=== PATIENT | male | born 1950 | race Caucasian/White ===

== ENCOUNTER → 2017-10-16 08:59 | Outpatient (POV) | payer MEDICARE, OTHER, SELFPAY ==
[2017-10-16 09:19] VITALS: BP 127/69; PULSE 93; RESP 18; O2SAT 99; BMI 24.3
--- NOTE | 2017-10-16 09:59 | HMH.PAINSOAP ---
[facility] Pain Management SOAP Note Subjective:: This patient is a 67-year-old white male who following up today for medication refills. This patient recently had back surgery back in May of this last year. Patient been released by surgeon from wearing his back brace. He reports that he is doing pretty well as far as pain control at this time. He does state his pain to 7 out of 10 today. He denies any side effects directly related to the pain medication. Patient is currently on morphine ER 15 mg 1 p.o. daily along with oxycodone 10 mg 1 p.o. 3 times daily. Patient states that this medication helps him do to 60%. Patient's UDS has been appropriate in the past and we will send him for one for today. Patient is also taking diclofenac 75 mg 1 p.o. twice daily. ROS General: no recent weight change, no fever, no sleep disturbances Respiratory: no cough, no shortness of air, no recurring pulmonary infections Cardiovascular/Peripheral Vascular: No chest pain, No palpitations, no edema, no shortness of breath. Gastrointestinal: Chronic constipation Genitourinary: Urinary hesitancy Musculoskeletal: Lumbar back pain Psychiatric: normal mood/ affect Neurological: States he has weakness in bilateral lower extremities at times, [denies balance issues] Objective:: Physical Exam General: Alert and oriented x3, no acute distress, pleasant and cooperative, [on room air] Lungs: Resps E/U, Symmetrical chest expansion Musculoskeletal: Flexion and extension of lumbar spine somewhat guarded secondary to pain, deep tendon reflexes normal, strength in upper and lower extremities [5/5], slightly antalgic gait noted Neurological: speech clear, information systems consultant equal, no gross sensory deficits Assessment:: Lumbar postlaminectomy syndrome, degenerative disc disease lumbar spine, lumbar radiculopathy Plan:: We will refill the patient's medication today least 15 mg 1 p.o. daily and oxycodone 10 mg [address] HARDEN has reviewed the chart and feels this is appropriate. Patient's JOSE #[id number] reviewed and appropriate. Patient's last UDS was appropriate. he will go for a UDS today. She is still under the care of his surgeon. I have asked that when he is released that he request the surgeon send us notes his most recent surgery and recovery. Patient has been prescribed a controlled substance after being counseled on the medication, medication safety, and possible side effects. JOSE report has been obtained and reviewed prior to prescription and found to be appropriate. Opioid contract was reviewed and signed by the patient, and that they have agreed to all of the terms set forth by our compliance program. Note was dictated using voice recognition software and may contain errors or omissions
--- NOTE | 2017-10-16 10:02 | P.CONS_ITS ---
[facility] Pain Management SOAP Note Subjective:: This patient is a 67-year-old white male who following up today for medication refills. This patient recently had back surgery back in May of this last year. Patient been released by surgeon from wearing his back brace. He reports that he is doing pretty well as far as pain control at this time. He does state his pain to 7 out of 10 today. He denies any side effects directly related to the pain medication. Patient is currently on morphine ER 15 mg 1 p.o. daily along with oxycodone 10 mg 1 p.o. 3 times daily. Patient states that this medication helps him do to 60%. Patient's UDS has been appropriate in the past and we will send him for one for today. Patient is also taking diclofenac 75 mg 1 p.o. twice daily. ROS General: no recent weight change, no fever, no sleep disturbances Respiratory: no cough, no shortness of air, no recurring pulmonary infections Cardiovascular/Peripheral Vascular: No chest pain, No palpitations, no edema, no shortness of breath. Gastrointestinal: Chronic constipation Genitourinary: Urinary hesitancy Musculoskeletal: Lumbar back pain Psychiatric: normal mood/ affect Neurological: States he has weakness in bilateral lower extremities at times, [ denies balance issues] Objective:: Physical Exam General: Alert and oriented x3, no acute distress, pleasant and cooperative, [ on room air] Lungs: Resps E/U, Symmetrical chest expansion Musculoskeletal: Flexion and extension of lumbar spine somewhat guarded secondary to pain, deep tendon reflexes normal, strength in upper and lower extremities [5/5], slightly antalgic gait noted Neurological: speech clear, retail marketing coordinator equal, no gross sensory deficits Assessment:: Lumbar postlaminectomy syndrome, degenerative disc disease lumbar spine, lumbar radiculopathy Plan:: We will refill the patient's medication today least 15 mg 1 p.o. daily and oxycodone 10 mg [address] HARDEN has reviewed the chart and feels this is appropriate. Patient's JOSE #[id number] reviewed and appropriate. Patient's last UDS was appropriate. he will go for a UDS today. She is still under the care of his surgeon. I have asked that when he is released that he request the surgeon send us notes his most recent surgery and recovery. Patient has been prescribed a controlled substance after being counseled on the medication, medication safety, and possible side effects. JOSE report has been obtained and reviewed prior to prescription and found to be appropriate. Opioid contract was reviewed and signed by the patient, and that they have agreed to all of the terms set forth by our compliance program. Note was dictated using voice recognition software and may contain errors or omissions
[2017-10-16 13:26] LABS: Amphetamine/Metha Screen,Urine Negative ng/mL (<1000); Barbiturates Screen,Urine Negative ng/mL (<200); Benzodiazepines Screen,Urine Negative ng/mL (200); Cannabinoid Screen,Urine Negative ng/mL (<50); Cocaine Screen,Urine Negative ng/g (<300); Methadone Screen,Urine Negative ng/mL (<300); Opiate Screen,Urine Positive ng/mL (<300); Phencyclidine Screen,Urine Negative ng/mL (<25)
[2017-10-22 16:13] LABS: Codeine Negative (Cutoff=100); Hydrocodone Negative (Cutoff=100); Hydromorphone Negative (Cutoff=100); Morphine Positive (.); Oxycodone (GC/MS) 1630 ng/mL (Cutoff=100)
[2017-10-22 17:15] LABS: Opiates Positive (.); Oxymorphone (GC/MS) 768 ng/mL (Cutoff=100)
== END ==
PROVIDERS: Visit Provider Clinical Nurse Specialist Family Health
DX: M96.1 Postlaminectomy syndrome, not elsewhere classified (principal); Z79.899 Other long term (current) drug therapy
CPT/HCPCS: 99212; 80305; 80361; 80365; G0480

== ENCOUNTER → 2017-12-25 10:05 | Outpatient (POV) | payer MEDICARE, OTHER, SELFPAY ==
--- NOTE | 2017-12-25 11:03 | HMH.PAINSOAP ---
[facility] Pain Management SOAP Note Subjective:: This patient is a pleasant 67-year-old white male who we are treating for low back pain with lumbar radiculopathy symptoms and postlaminectomy syndrome lumbar spine. He had back surgery in May of last year. He is doing well with his current pain medication regimen. Pain score is an 8 out of 10. He is currently on a regimen of morphine extended release 15 mg once a day along with oxycodone 10 mg 3 times a day. His Sharif and urine drug screen are all appropriate. Kaspar #[id number]. He has no side effects with these medications. He is also on diclofenac 75 mg twice a day. Overall he is doing well with no changes. General: No recent weight change, no fever no sleep disturbances Respiratory: No changes Cardiovascular/peripheral vascular: No chest pain no shortness of breath Gastrointestinal: Chronic constipation Urinary: Urinary hesitancy Musculoskeletal: Low back pain and leg pain Psychiatric: Normal/depressed mood/affect Neurological: Occasional weakness in bilateral lower extremities. No balance issues. Objective:: Alert and oriented ?3 in no acute distress. Patient does have an antalgic gait. Motor strength of the lower extremities is 5/5. There is no gross sensory deficit. Assessment:: Degenerative disc disease of lumbar spine with lumbar radiculopathy symptoms and postlaminectomy syndrome of lumbar spine Plan:: We will refill his morphine sulfate 15 mg once a day with oxycodone 10 mg 3 times a day. I will give him 2 months worth of prescriptions. 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 If he has any problems or questions he is to call us in the pain clinic.
--- NOTE | 2017-12-25 11:06 | P.CONS_ITS ---
[facility] Pain Management SOAP Note Subjective:: This patient is a pleasant 67-year-old white male who we are treating for low back pain with lumbar radiculopathy symptoms and postlaminectomy syndrome lumbar spine. He had back surgery in May of last year. He is doing well with his current pain medication regimen. Pain score is an 8 out of 10. He is currently on a regimen of morphine extended release 15 mg once a day along with oxycodone 10 mg 3 times a day. His Sharif and urine drug screen are all appropriate. Kaspar #[id number]. He has no side effects with these medications. He is also on diclofenac 75 mg twice a day. Overall he is doing well with no changes. General: No recent weight change, no fever no sleep disturbances Respiratory: No changes Cardiovascular/peripheral vascular: No chest pain no shortness of breath Gastrointestinal: Chronic constipation Urinary: Urinary hesitancy Musculoskeletal: Low back pain and leg pain Psychiatric: Normal/depressed mood/affect Neurological: Occasional weakness in bilateral lower extremities. No balance issues. Objective:: Alert and oriented ?3 in no acute distress. Patient does have an antalgic gait. Motor strength of the lower extremities is 5/5. There is no gross sensory deficit. Assessment:: Degenerative disc disease of lumbar spine with lumbar radiculopathy symptoms and postlaminectomy syndrome of lumbar spine Plan:: We will refill his morphine sulfate 15 mg once a day with oxycodone 10 mg 3 times a day. I will give him 2 months worth of prescriptions. 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 If he has any problems or questions he is to call us in the pain clinic.
[2017-12-25 12:06] VITALS: BP 100/53; PULSE 86; RESP 20; TEMP 36.8; O2SAT 98; BMI 25.2
[2017-12-25 15:11] LABS: Amphetamine/Metha Screen,Urine Negative ng/mL (<1000); Barbiturates Screen,Urine Negative ng/mL (<200); Benzodiazepines Screen,Urine Negative ng/mL (200); Cannabinoid Screen,Urine Negative ng/mL (<50); Cocaine Screen,Urine Negative ng/g (<300); Methadone Screen,Urine Negative ng/mL (<300); Opiate Screen,Urine Positive ng/mL (<300); Phencyclidine Screen,Urine Negative ng/mL (<25)
[2018-01-03 02:08] LABS: Codeine Negative (Cutoff=100); Hydrocodone Negative (Cutoff=100); Hydromorphone Negative (Cutoff=100); Morphine Positive (.); Oxycodone (GC/MS) 106 ng/mL (Cutoff=100)
[2018-01-04 06:18] LABS: Opiates Positive (.); Oxymorphone (GC/MS) 207 ng/mL (Cutoff=100)
== END ==
PROVIDERS: Visit Provider Anesthesiology
DX: M54.16 Radiculopathy, lumbar region (principal); Z79.899 Other long term (current) drug therapy
CPT/HCPCS: 80305; 80361; 80365; 99212; G0480

== ENCOUNTER → 2018-03-26 11:14 | Outpatient (POV) | payer MEDICARE, OTHER, SELFPAY ==
[2018-03-26 11:27] VITALS: BP 122/64; PULSE 83; RESP 18; O2SAT 96; BMI 24.6
--- NOTE | 2018-03-26 12:23 | HMH.PAINSOAP ---
[facility] Pain Management SOAP Note Subjective:: Patient is a 67-year-old white male who presents today for medication refills. We are treating this patient for pain secondary to postlaminectomy syndrome of the lumbar spine with lumbar radiculopathy. Patient recently had back surgery back in May. He is doing well. Patient rates his pain a 9 out of 10 however this he states this is typical. Patient states that the medication makes him much more functional and he is actually able to do yard work. Patient on morphine ER 15 mg 1 p.o. twice daily and oxycodone 10 mg 1 p.o. 3 times daily. Patient's JOSE #[id number] reviewed and appropriate. Patient states he has been having muscle spasms lately. Patient is currently on tizanidine. Patient has not tried Flexeril before we will switch him over to Flexeril. Patient denies side effects with this medication. Patient also taking diclofenac 75 mg 1 p.o. twice daily. Patient states that most of his pain is in his low back and left side. ROS General: no recent weight change, no fever, no sleep disturbances Respiratory: no cough, no shortness of air, no recurring pulmonary infections Cardiovascular/Peripheral Vascular: No chest pain, No palpitations, no edema, no shortness of breath. Gastrointestinal: no incontinence, normal bowel movements reported Genitourinary: no incontinence Musculoskeletal: Back pain, leg pain Psychiatric: normal mood/ affect Neurological: [denies weakness in extremities], [denies balance issues] Objective:: Physical Exam General: Alert and oriented x3, no acute distress, pleasant and cooperative, [on room air] Lungs: Resps E/U, Symmetrical chest expansion, Eyes: PERRL Musculoskeletal: Flexion and extension of lumbar spine somewhat guarded secondary to pain, deep tendon reflexes normal, strength in upper and lower extremities [5/5], [abnormal gait noted] Neurological: speech clear, test lead application testing equal, no gross sensory deficits Assessment:: Degenerative disc disease of the lumbar spine with lumbar radiculopathy and postlaminectomy syndrome of the lumbar spine Plan:: We will refill the patient's medications morphine extended release 15 mg 1 p.o. twice daily and oxycodone 10 mg 1 p.o. 3 times daily. We will give him [address] prescriptions[address] Dr. Santana has reviewed this chart and agrees with this plan of care. We will also call him in Flexeril 10 mg 1 tab p.o. 3 times daily giving him a 90 day supply at his [facility]. I will follow-up with the patient in 3 months. Patient's been instructed to call the office if he has any issues prior to his next appointment. Patient has been prescribed a controlled substance after being counseled on the medication, medication safety, and possible side effects. JOSE report has been obtained and reviewed prior to prescription and found to be appropriate. Opioid contract was reviewed and signed by the patient, and that they have agreed to all of the terms set forth by our compliance program. This note was dictated using voice recognition software and may contain errors or omissions
--- NOTE | 2018-03-26 12:26 | P.CONS_ITS ---
[facility] Pain Management SOAP Note Subjective:: Patient is a 67-year-old white male who presents today for medication refills. We are treating this patient for pain secondary to postlaminectomy syndrome of the lumbar spine with lumbar radiculopathy. Patient recently had back surgery back in May. He is doing well. Patient rates his pain a 9 out of 10 however this he states this is typical. Patient states that the medication makes him much more functional and he is actually able to do yard work. Patient on morphine ER 15 mg 1 p.o. twice daily and oxycodone 10 mg 1 p.o. 3 times daily. Patient's JOSE #[id number] reviewed and appropriate. Patient states he has been having muscle spasms lately. Patient is currently on tizanidine. Patient has not tried Flexeril before we will switch him over to Flexeril. Patient denies side effects with this medication. Patient also taking diclofenac 75 mg 1 p.o. twice daily. Patient states that most of his pain is in his low back and left side. ROS General: no recent weight change, no fever, no sleep disturbances Respiratory: no cough, no shortness of air, no recurring pulmonary infections Cardiovascular/Peripheral Vascular: No chest pain, No palpitations, no edema, no shortness of breath. Gastrointestinal: no incontinence, normal bowel movements reported Genitourinary: no incontinence Musculoskeletal: Back pain, leg pain Psychiatric: normal mood/ affect Neurological: [denies weakness in extremities], [denies balance issues] Objective:: Physical Exam General: Alert and oriented x3, no acute distress, pleasant and cooperative, [ on room air] Lungs: Resps E/U, Symmetrical chest expansion, Eyes: PERRL Musculoskeletal: Flexion and extension of lumbar spine somewhat guarded secondary to pain, deep tendon reflexes normal, strength in upper and lower extremities [5/5], [abnormal gait noted] Neurological: speech clear, wire charger equal, no gross sensory deficits Assessment:: Degenerative disc disease of the lumbar spine with lumbar radiculopathy and postlaminectomy syndrome of the lumbar spine Plan:: We will refill the patient's medications morphine extended release 15 mg 1 p.o. twice daily and oxycodone 10 mg 1 p.o. 3 times daily. We will give him [address] prescriptions[address] Dr. Santana has reviewed this chart and agrees with this plan of care. We will also call him in Flexeril 10 mg 1 tab p.o. 3 times daily giving him a 90 day supply at his [facility]. I will follow-up with the patient in 3 months. Patient's been instructed to call the office if he has any issues prior to his next appointment. Patient has been prescribed a controlled substance after being counseled on the medication, medication safety, and possible side effects. JOSE report has been obtained and reviewed prior to prescription and found to be appropriate. Opioid contract was reviewed and signed by the patient, and that they have agreed to all of the terms set forth by our compliance program. This note was dictated using voice recognition software and may contain errors or omissions
== END ==
PROVIDERS: Visit Provider Clinical Nurse Specialist Family Health
DX: M51.16 Intervertebral disc disorders with radiculopathy, lumbar region (principal); M96.1 Postlaminectomy syndrome, not elsewhere classified
CPT/HCPCS: 99212

== ENCOUNTER → 2018-05-21 09:27 | Outpatient (POV) | payer MEDICARE, OTHER, SELFPAY ==
[2018-05-21 10:17] VITALS: BP 141/71; PULSE 83; RESP 18; O2SAT 98; BMI 19.9
[2018-05-21 10:20] LABS: Amphetamine/Metha Screen,Urine Negative ng/mL (<1000); Barbiturates Screen,Urine Negative ng/mL (<200); Benzodiazepines Screen,Urine Negative ng/mL (<200); Cannabinoid Screen,Urine Negative ng/mL (<50); Cocaine Screen,Urine Negative ng/mL (<300); Methadone Screen,Urine Negative ng/mL (<300); Opiate Screen,Urine Positive ng/mL (<300); Phencyclidine Screen,Urine Negative ng/mL (<25)
--- NOTE | 2018-05-21 12:07 | HMH.PAINSOAP ---
[facility] Pain Management SOAP Note Subjective:: Patient is a pleasant 67-year-old white male who presents today for medication refills. We are treating the patient for pain secondary to postlaminectomy syndrome of the lumbar spine with lumbar radiculopathy. Patient rates pain a 10 out of 10 however he has had a recent injury when he was moving trees. Patient otherwise doing well. Patient states the medication makes him much more functional. Patient is currently on morphine extended release 50 mg 1 p.o. twice daily and oxycodone 10 mg 1 p.o. 3 times daily. Patient's JOSE #[id number] reviewed and appropriate he denies side effects to this. Patient is also on Flexeril 10 mg 1 p.o. 3 times daily and diclofenac 75 mg 1 p.o. twice daily. It is in his low back and left side. ROS General: no recent weight change, no fever, no sleep disturbances Respiratory: no cough, no shortness of air, no recurring pulmonary infections Cardiovascular/Peripheral Vascular: No chest pain, No palpitations, no edema, no shortness of breath. Gastrointestinal: no incontinence, normal bowel movements reported Genitourinary: no incontinence Musculoskeletal: Back pain, leg pain, shoulder pain Psychiatric: normal mood/ affect Neurological: [denies weakness in extremities], [denies balance issues] Objective:: Physical Exam General: Alert and oriented x3, no acute distress, pleasant and cooperative, [on room air] Lungs: Resps E/U, Symmetrical chest expansion, Eyes: PERRL Musculoskeletal: Flexion and extension of lumbar spine somewhat guarded secondary to pain, deep tendon reflexes normal, strength in upper and lower extremities [5/5], [abnormal gait noted] Neurological: speech clear, fish farm manager equal, no gross sensory deficits Assessment:: Degenerative disc disease lumbar spine with lumbar radiculopathy, postlaminectomy syndrome lumbar spine Plan:: We will refill the patient's morphine extended release 50 mg 1 p.o. twice daily and give him 2 months worth. We will also refill his oxycodone 10 mg 1 p.o. 3 times daily and give him 2 months worth. Patient's Jose and urine drug screen reviewed. Dr. Santana is reviewed this chart and agrees with this plan of care. 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 Patient has been prescribed a controlled substance after being counseled on the medication, medication safety, and possible side effects. JOSE report has been obtained and reviewed prior to prescription and found to be appropriate. Opioid contract was reviewed and signed by the patient, and that they have agreed to all of the terms set forth by our compliance program. This note was dictated using voice recognition software and may contain errors or omissions
--- NOTE | 2018-05-21 12:20 | P.CONS_ITS ---
[facility] Pain Management SOAP Note Subjective:: Patient is a pleasant 67-year-old white male who presents today for medication refills. We are treating the patient for pain secondary to postlaminectomy syndrome of the lumbar spine with lumbar radiculopathy. Patient rates pain a 10 out of 10 however he has had a recent injury when he was moving trees. Patient otherwise doing well. Patient states the medication makes him much more functional. Patient is currently on morphine extended release 50 mg 1 p.o. twice daily and oxycodone 10 mg 1 p.o. 3 times daily. Patient's JOSE #[id number] reviewed and appropriate he denies side effects to this. Patient is also on Flexeril 10 mg 1 p.o. 3 times daily and diclofenac 75 mg 1 p.o. twice daily. It is in his low back and left side. ROS General: no recent weight change, no fever, no sleep disturbances Respiratory: no cough, no shortness of air, no recurring pulmonary infections Cardiovascular/Peripheral Vascular: No chest pain, No palpitations, no edema, no shortness of breath. Gastrointestinal: no incontinence, normal bowel movements reported Genitourinary: no incontinence Musculoskeletal: Back pain, leg pain, shoulder pain Psychiatric: normal mood/ affect Neurological: [denies weakness in extremities], [denies balance issues] Objective:: Physical Exam General: Alert and oriented x3, no acute distress, pleasant and cooperative, [on room air] Lungs: Resps E/U, Symmetrical chest expansion, Eyes: PERRL Musculoskeletal: Flexion and extension of lumbar spine somewhat guarded secondary to pain, deep tendon reflexes normal, strength in upper and lower extremities [5/5], [abnormal gait noted] Neurological: speech clear, material movers equal, no gross sensory deficits Assessment:: Degenerative disc disease lumbar spine with lumbar radiculopathy, postlaminectomy syndrome lumbar spine Plan:: We will refill the patient's morphine extended release 50 mg 1 p.o. twice daily and give him 2 months worth. We will also refill his oxycodone 10 mg 1 p.o. 3 times daily and give him 2 months worth. Patient's Jose and urine drug screen reviewed. Dr. Santana is reviewed this chart and agrees with this plan of care. 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 Patient has been prescribed a controlled substance after being counseled on the medication, medication safety, and possible side effects. JOSE report has been obtained and reviewed prior to prescription and found to be appropriate. Opioid contract was reviewed and signed by the patient, and that they have agreed to all of the terms set forth by our compliance program. This note was dictated using voice recognition software and may contain errors or omissions
[2018-05-27 20:08] LABS: Codeine Negative (Cutoff=100); Hydrocodone Negative (Cutoff=100); Hydromorphone Negative (Cutoff=100); Morphine Positive (.); Oxycodone (GC/MS) 349 ng/mL (Cutoff=100)
[2018-05-28 03:32] LABS: Opiates Positive (.); Oxymorphone (GC/MS) 331 ng/mL (Cutoff=100)
== END ==
PROVIDERS: Visit Provider Clinical Nurse Specialist Family Health
DX: M96.1 Postlaminectomy syndrome, not elsewhere classified (principal); M51.16 Intervertebral disc disorders with radiculopathy, lumbar region; Z79.899 Other long term (current) drug therapy
CPT/HCPCS: 80305; 80361; 80365; 99213; G0480

== ENCOUNTER → 2018-07-23 10:07 | Outpatient (POV) | payer MEDICARE, OTHER, SELFPAY ==
[2018-07-23 10:22] VITALS: BP 142/84; PULSE 93; RESP 18; O2SAT 98; BMI 23.6
--- NOTE | 2018-07-23 10:30 | HMH.PAINSOAP ---
[facility] Pain Management SOAP Note Subjective:: Patient is a pleasant 68-year-old white male who presents today for medication refills. We are treating him for pain secondary to postlaminectomy syndrome of the lumbar spine. Today he rates his pain a 10 out of 10. Patient has been falling recently. He has a neurology appointment set up and and reduction study set up for this month. Patient is currently on morphine extended release 15 mg 1 p.o. twice daily and oxycodone 10 mg 1 p.o. 3 times daily. Patient's JOSE #[id number] reviewed and appropriate. Patient's x-rays have been appropriate. Patient is also on Flexeril 10 mg 1 p.o. 3 times daily and diclofenac 75 mg 1 p.o. twice daily. Patient states he has been having a flare in his pain. ROS General: no recent weight change, no fever, no sleep disturbances Respiratory: no cough, no shortness of air, no recurring pulmonary infections Cardiovascular/Peripheral Vascular: No chest pain, No palpitations, no edema, no shortness of breath. Gastrointestinal: no incontinence, normal bowel movements reported Genitourinary: no incontinence Musculoskeletal: Back pain, leg pain, shoulder pain Psychiatric: normal mood/ affect Neurological: [denies weakness in extremities], [denies balance issues] Objective:: Physical Exam General: Alert and oriented x3, no acute distress, pleasant and cooperative, [on room air] Lungs: Resps E/U, Symmetrical chest expansion, Eyes: PERRL Musculoskeletal: Flexion and extension of lumbar spine somewhat guarded secondary to pain, deep tendon reflexes normal, strength in upper and lower extremities [5/5], [abnormal gait noted] Neurological: speech clear, track worker equal, no gross sensory deficits Assessment:: Postlaminectomy syndrome of the lumbar spine, degenerative disc disease lumbar spine Plan:: Patient is to keep his neurology appointment I will see him back in 2 months. We will give him 2 months of medication morphine extended release 15 mg 1 p.o. twice daily and give him oxycodone 10 mg 1 p.o. 3 times daily. I will follow-up with him in [address] Santana has reviewed this chart and agrees with this plan of care. We will also call in some prednisone 20 mg 1 p.o. twice daily for 5 days to see if this helps with his recent flare. Patient has been prescribed a controlled substance after being counseled on the medication, medication safety, and possible side effects. JOSE report has been obtained and reviewed prior to prescription and found to be appropriate. Opioid contract was reviewed and signed by the patient, and that they have agreed to all of the terms set forth by our compliance program. This note was dictated using voice recognition software and may contain errors or omissions
--- NOTE | 2018-07-23 10:33 | P.CONS_ITS ---
[facility] Pain Management SOAP Note Subjective:: Patient is a pleasant 68-year-old white male who presents today for medication refills. We are treating him for pain secondary to postlaminectomy syndrome of the lumbar spine. Today he rates his pain a 10 out of 10. Patient has been falling recently. He has a neurology appointment set up and and reduction study set up for this month. Patient is currently on morphine extended release 15 mg 1 p.o. twice daily and oxycodone 10 mg 1 p.o. 3 times daily. Patient's JOSE #[id number] reviewed and appropriate. Patient's x-rays have been appropriate. Patient is also on Flexeril 10 mg 1 p.o. 3 times daily and diclofenac 75 mg 1 p.o. twice daily. Patient states he has been having a flare in his pain. ROS General: no recent weight change, no fever, no sleep disturbances Respiratory: no cough, no shortness of air, no recurring pulmonary infections Cardiovascular/Peripheral Vascular: No chest pain, No palpitations, no edema, no shortness of breath. Gastrointestinal: no incontinence, normal bowel movements reported Genitourinary: no incontinence Musculoskeletal: Back pain, leg pain, shoulder pain Psychiatric: normal mood/ affect Neurological: [denies weakness in extremities], [denies balance issues] Objective:: Physical Exam General: Alert and oriented x3, no acute distress, pleasant and cooperative, [on room air] Lungs: Resps E/U, Symmetrical chest expansion, Eyes: PERRL Musculoskeletal: Flexion and extension of lumbar spine somewhat guarded secondary to pain, deep tendon reflexes normal, strength in upper and lower extremities [5/5], [abnormal gait noted] Neurological: speech clear, 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 We will give him 2 months of medication morphine extended release 15 mg 1 p.o. twice daily and give him oxycodone 10 mg 1 p.o. 3 times daily. I will follow-up with him in [address] Santana has reviewed this chart and agrees with this plan of care. We will also call in some prednisone 20 mg 1 p.o. twice daily for 5 days to see if this helps with his recent flare. Patient has been prescribed a controlled substance after being counseled on the medication, medication safety, and possible side effects. JOSE report has been obtained and reviewed prior to prescription and found to be appropriate. Opioid contract was reviewed and signed by the patient, and that they have agreed to all of the terms set forth by our compliance program. This note was dictated using voice recognition software and may contain errors or omissions
== END ==
PROVIDERS: Visit Provider Clinical Nurse Specialist Family Health
DX: M96.1 Postlaminectomy syndrome, not elsewhere classified (principal); M51.36 Other intervertebral disc degeneration, lumbar region
CPT/HCPCS: 99213

== ENCOUNTER → 2018-09-24 10:41 | Outpatient (POV) | payer MEDICARE, OTHER, SELFPAY ==
[2018-09-24 10:59] VITALS: BP 148/89; PULSE 89; RESP 18; O2SAT 99; BMI 25.1
--- NOTE | 2018-09-24 11:10 | HMH.PAINSOAP ---
[facility] Pain Management SOAP Note Subjective:: Patient is a 68-year-old male who presents today to discuss refills and to discuss his current regimen. Since his last visit patient had a shoulder surgery which in turn got infected. Patient was septic and was put in the ICU. Patient had the shoulder hardware removed he currently has nothing in his shoulder at this time. There is no connection of his arm to his shoulder. Patient currently on antibiotic pump. Patient had a fall after he being septic and injured his back which he now states he may have to have a back surgery again. Patient is currently on morphine and oxycodone however he is not having any success with pain control he rates his pain a 10 out of 10. Patient and I had a long discussion in regards to what we change him to. Patient is also having extreme muscle cramps in his bilateral legs and his shoulder. ROS General: no recent weight change, no fever, no sleep disturbances Respiratory: no cough, no shortness of air, no recurring pulmonary infections Cardiovascular/Peripheral Vascular: No chest pain, No palpitations, no edema, no shortness of breath. Gastrointestinal: no incontinence, normal bowel movements reported Genitourinary: no incontinence Musculoskeletal: Back pain, leg pain, left shoulder pain Psychiatric: normal mood/ affect, Neurological: [denies weakness in extremities], [denies balance issues] Objective:: Physical Exam General: Alert and oriented x3, no acute distress, pleasant and cooperative, [on room air] Lungs: Resps E/U, Symmetrical chest expansion, Eyes: PERRL Musculoskeletal: Flexion and extension of lumbar spine somewhat guarded secondary to pain, deep tendon reflexes normal, strength in upper and lower extremities [5/5], [abnormal gait noted] Neurological: speech clear, skin former equal, no gross sensory deficits Assessment:: Degenerative disc disease lumbar spine with lumbar postlaminectomy syndrome, left shoulder pain Plan:: After discussion with Dr. Santana we will change him to Dilaudid 4 mg 1 p.o. up to 5 times a day and name 5 mg daily for muscle cramps. We will follow-up with him in 1 month and reassess his symptoms at that time. he has been instructed to call the office if he has any issues. Patient has been prescribed a controlled substance after being counseled on the medication, medication safety, and possible side effects. JOSE report has been obtained and reviewed prior to prescription and found to be appropriate. Opioid contract was reviewed and signed by the patient, and that they have agreed to all of the terms set forth by our compliance program. Dr. Santana has reviewed this note and agrees with this plan of care. This note was dictated using voice recognition software and may contain errors or omissions
[2018-09-24 12:20] LABS: Amphetamine/Metha Screen,Urine Negative ng/mL (<1000); Barbiturates Screen,Urine Negative ng/mL (<200); Benzodiazepines Screen,Urine Negative ng/mL (<200); Cannabinoid Screen,Urine Negative ng/mL (<50); Cocaine Screen,Urine Negative ng/mL (<300); Methadone Screen,Urine Negative ng/mL (<300); Opiate Screen,Urine Positive ng/mL (<300); Phencyclidine Screen,Urine Negative ng/mL (<25)
[2018-09-29 03:37] LABS: Codeine Negative (Cutoff=100); Hydrocodone Negative (Cutoff=100); Hydromorphone Negative (Cutoff=100); Morphine Positive (.); Oxycodone (GC/MS) 331 ng/mL (Cutoff=100)
[2018-09-29 12:57] LABS: Opiates Positive (.); Oxymorphone (GC/MS) 813 ng/mL (Cutoff=100)
== END ==
PROVIDERS: Visit Provider Clinical Nurse Specialist Family Health
DX: M51.36 Other intervertebral disc degeneration, lumbar region (principal); Z79.899 Other long term (current) drug therapy; M96.1 Postlaminectomy syndrome, not elsewhere classified; M25.512 Pain in left shoulder
CPT/HCPCS: 80305; 80361; 80365; 99213; G0480

== ENCOUNTER → 2018-10-15 12:59 | Outpatient (POV) | payer MEDICARE, OTHER, SELFPAY ==
[2018-10-15 13:26] VITALS: BP 145/80; PULSE 75; RESP 18; O2SAT 99; BMI 24.5
--- NOTE | 2018-10-15 13:51 | HMH.PAINSOAP ---
[facility] Pain Management SOAP Note Subjective:: Is a pleasant 68-year-old white male who present today to discuss medication changes. Patient states that he has not had much relief with his Dilaudid. He states that this helps somewhat however it does not take away the pain. Patient is having surgery on the for his back. Patient is currently on morphine extended release 15 mg 1 p.o. twice daily along with diazepam 5 mg daily for muscle spasms. Patient states that he does have less muscle spasm with diazepam. Patient is tried and failed multiple other medications and muscle relaxers. Patient had shoulder surgery which in turn got infected he then had the shoulder joint removed. Patient currently does not have use of his left arm ROS General: no recent weight change, no fever, no sleep disturbances Respiratory: no cough, no shortness of air, no recurring pulmonary infections Cardiovascular/Peripheral Vascular: No chest pain, No palpitations, no edema, no shortness of breath. Gastrointestinal: no incontinence, normal bowel movements reported Genitourinary: no incontinence Musculoskeletal: Back pain, leg pain, left shoulder pain Psychiatric: normal mood/ affect Neurological: [denies weakness in extremities], [denies balance issues] Objective:: Physical Exam General: Alert and oriented x3, no acute distress, pleasant and cooperative, [on room air] Lungs: Resps E/U, Symmetrical chest expansion, Eyes: PERRL Musculoskeletal: Flexion and extension of lumbar spine somewhat guarded secondary to pain, deep tendon reflexes normal, strength in upper and lower extremities [5/5], [abnormal gait noted] Neurological: speech clear, 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 twice daily and increase his Dilaudid to 8 mg 1 p.o. B 4 times daily. We will increase his diazepam 5 mg to twice a day this is all temporary until he has his surgery and is feeling better. Patient understands this. Patient's been instructed to call the office if he has any issues with his medications. Patient has been prescribed a controlled substance after being counseled on the medication, medication safety, and possible side effects. JOSE report has been obtained and reviewed prior to prescription and found to be appropriate. Opioid contract was reviewed and signed by the patient, and that they have agreed to all of the terms set forth by our compliance program. Dr. Santana has reviewed this note and agrees with this plan of care. This note was dictated using voice recognition software and may contain errors or omissions
== END ==
PROVIDERS: Visit Provider Clinical Nurse Specialist Family Health
DX: M51.36 Other intervertebral disc degeneration, lumbar region (principal); M96.1 Postlaminectomy syndrome, not elsewhere classified; M25.512 Pain in left shoulder
CPT/HCPCS: 99213

== ENCOUNTER → 2018-11-27 11:43 | Outpatient (POV) | payer MEDICARE, OTHER, SELFPAY ==
[2018-11-27 12:01] VITALS: BP 135/71; PULSE 75; RESP 18; O2SAT 98; BMI 24.7
--- NOTE | 2018-11-27 12:04 | HMH.PAINSOAP ---
[facility] Pain Management SOAP Note Subjective:: Is a pleasant 68-year-old white male who presents today for follow-up. Patient has recently had a new lumbar fusion. He is also scheduled for some shoulder surgery. He is currently on morphine extended release 15 mg 1 p.o. twice daily along with diazepam 5 mg daily for muscle spasms. He states that this works well for muscle spasms however the morphine is not beneficial. He has been on Dilaudid for breakthrough pain. ROS General: no recent weight change, no fever, no sleep disturbances Respiratory: no cough, no shortness of air, no recurring pulmonary infections Cardiovascular/Peripheral Vascular: No chest pain, No palpitations, no edema, no shortness of breath. Gastrointestinal: no incontinence, normal bowel movements reported Genitourinary: no incontinence Musculoskeletal: Back pain, shoulder pain, myofascial pain Psychiatric: normal mood/ affect Neurological: [denies weakness in extremities], [denies balance issues] Objective:: Physical Exam General: Alert and oriented x3, no acute distress, pleasant and cooperative, [on room air] Lungs: Resps E/U, Symmetrical chest expansion, Eyes: PERRL Musculoskeletal: Flexion and extension of lumbar spine somewhat guarded secondary to pain, deep tendon reflexes normal, strength in upper and lower extremities [5/5], [abnormal gait noted] Neurological: speech clear, top screw equal, no gross sensory deficits Assessment:: Degenerative disc disease lumbar spine with lumbar postlaminectomy syndrome left shoulder pain Plan:: We will take the patient off of his morphine extended release we will prescribe him Dilaudid 8 mg 1 p.o. 5 times a day. He will continue his diazepam. I will follow-up with him in 2 months reassess his symptoms at that time. He is been instructed to call the office if he has any issues prior to his next appointment. Patient has been prescribed a controlled substance after being counseled on the medication, medication safety, and possible side effects. JOSE report has been obtained and reviewed prior to prescription and found to be appropriate. Opioid contract was reviewed and signed by the patient, and that they have agreed to all of the terms set forth by our compliance program. Dr. Santana has reviewed this note and agrees with this plan of care. This note was dictated using voice recognition software and may contain errors or omissions
--- NOTE | 2018-11-27 12:36 | P.CONS_ITS ---
[facility] Pain Management SOAP Note Subjective:: Is a pleasant 68-year-old white male who presents today for follow-up. Patient has recently had a new lumbar fusion. He is also scheduled for some shoulder surgery. He is currently on morphine extended release 15 mg 1 p.o. twice daily along with diazepam 5 mg daily for muscle spasms. He states that this works well for muscle spasms however the morphine is not beneficial. He has been on Dilaudid for breakthrough pain. ROS General: no recent weight change, no fever, no sleep disturbances Respiratory: no cough, no shortness of air, no recurring pulmonary infections Cardiovascular/Peripheral Vascular: No chest pain, No palpitations, no edema, no shortness of breath. Gastrointestinal: no incontinence, normal bowel movements reported Genitourinary: no incontinence Musculoskeletal: Back pain, shoulder pain, myofascial pain Psychiatric: normal mood/ affect Neurological: [denies weakness in extremities], [denies balance issues] Objective:: Physical Exam General: Alert and oriented x3, no acute distress, pleasant and cooperative, [on room air] Lungs: Resps E/U, Symmetrical chest expansion, Eyes: PERRL Musculoskeletal: Flexion and extension of lumbar spine somewhat guarded secondary to pain, deep tendon reflexes normal, strength in upper and lower extremities [5/5], [abnormal gait noted] Neurological: speech clear, 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 5 times a day. He will continue his diazepam. I will follow-up with him in 2 months reassess his symptoms at that time. He is been instructed to call the office if he has any issues prior to his next appointm ent. Patient has been prescribed a controlled substance after being counseled on the medication, medication safety, and possible side effects. JOSE report has been obtained and reviewed prior to prescription and found to be appropriate. Opioid contract was reviewed and signed by the patient, and that they have agreed to all of the terms set forth by our compliance program. Dr. Santana has reviewed this note and agrees with this plan of care. This note was dictated using voice recognition software and may contain errors or omissions
== END ==
PROVIDERS: Visit Provider Clinical Nurse Specialist Family Health
DX: M51.36 Other intervertebral disc degeneration, lumbar region (principal); M96.1 Postlaminectomy syndrome, not elsewhere classified; M25.512 Pain in left shoulder
CPT/HCPCS: 99213

== ENCOUNTER → 2019-01-22 11:27 | Outpatient (POV) | payer MEDICARE, OTHER, SELFPAY ==
[2019-01-22 11:57] VITALS: BP 145/58; PULSE 77; RESP 18; O2SAT 98; BMI 24.5
--- NOTE | 2019-01-22 12:45 | HMH.PAINSOAP ---
[facility] Pain Management SOAP Note Subjective:: Patient is a pleasant 68-year-old white male who presents today for follow-up. Patient has recently had a new lumbar fusion. He is scheduled for shoulder surgery in the fall. Is currently on Dilaudid 8 mg 1 p.o. 5 times a day and diazepam 5 mg daily for muscle spasms. Patient rates his pain a 9 out of 10. Patient states is constant. Patient also describing left SI joint pain to me. Patient and I discussed an SI joint belt. ROS General: no recent weight change, no fever, no sleep disturbances Respiratory: no cough, no shortness of air, no recurring pulmonary infections Cardiovascular/Peripheral Vascular: No chest pain, No palpitations, no edema, no shortness of breath. Gastrointestinal: no incontinence, normal bowel movements reported Genitourinary: no incontinence Musculoskeletal: Back pain, shoulder pain, myofascial pain, SI joint pain Psychiatric: normal mood/ affect Neurological: [denies weakness in extremities], [denies balance issues] Objective:: Physical Exam General: Alert and oriented x3, no acute distress, pleasant and cooperative, [on room air] Lungs: Resps E/U, Symmetrical chest expansion, Eyes: PERRL Musculoskeletal: Flexion and extension of lumbar spine somewhat guarded secondary to pain, deep tendon reflexes normal, strength in upper and lower extremities [5/5], [abnormal gait noted] Neurological: speech clear, doctor of audiology equal, no gross sensory deficits Assessment:: Degenerative disc disease lumbar spine with lumbar postlaminectomy syndrome and left shoulder pain, sacroiliitis Plan:: We will continue the patient on Dilaudid 8 mg 1 p.o. 5 times a day we will give him 2 months worth of medication and follow-up with him in 3 months reassess his symptoms at that time he is been instructed to call the office if he has any issues prior to his next appointment. He can pick up man his third month in the interim. We will also continue him on his diazepam for muscle spasms. Patient has been prescribed a controlled substance after being counseled on the medication, medication safety, and possible side effects. JOSE report has been obtained and reviewed prior to prescription and found to be appropriate. Opioid contract was reviewed and signed by the patient, and that they have agreed to all of the terms set forth by our compliance program. Dr. Santana has reviewed this note and agrees with this plan of care. This note was dictated using voice recognition software and may contain errors or omissions
--- NOTE | 2019-01-22 12:48 | P.CONS_ITS ---
[facility] Pain Management SOAP Note Subjective:: Patient is a pleasant 68-year-old white male who presents today for follow-up. Patient has recently had a new lumbar fusion. He is scheduled for shoulder surgery in the fall. Is currently on Dilaudid 8 mg 1 p.o. 5 times a day and diazepam 5 mg daily for muscle spasms. Patient rates his pain a 9 out of 10. Patient states is constant. Patient also describing left SI joint pain to me. Patient and I discussed an SI joint belt. ROS General: no recent weight change, no fever, no sleep disturbances Respiratory: no cough, no shortness of air, no recurring pulmonary infections Cardiovascular/Peripheral Vascular: No chest pain, No palpitations, no edema, no shortness of breath. Gastrointestinal: no incontinence, normal bowel movements reported Genitourinary: no incontinence Musculoskeletal: Back pain, shoulder pain, myofascial pain, SI joint pain Psychiatric: normal mood/ affect Neurological: [denies weakness in extremities], [denies balance issues] Objective:: Physical Exam General: Alert and oriented x3, no acute distress, pleasant and cooperative, [on room air] Lungs: Resps E/U, Symmetrical chest expansion, Eyes: PERRL Musculoskeletal: Flexion and extension of lumbar spine somewhat guarded secondary to pain, deep tendon reflexes normal, strength in upper and lower extremities [5/5], [abnormal gait noted] Neurological: 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 5 times a day we will give him 2 months worth of medication and follow-up with him in 3 months reassess his symptoms at that time he is been instructed to call the office if he has any issues prior to his next appointment. 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 We will also continue him on his diazepam for muscle spasms. Patient has been prescribed a controlled substance after being counseled on the medication, medication safety, and possible side effects. JOSE report has been obtained and reviewed prior to prescription and found to be appropriate. Opioid contract was reviewed and signed by the patient, and that they have agreed to all of the terms set forth by our compliance program. Dr. Santana has reviewed this note and agrees with this plan of care. This note was dictated using voice recognition software and may contain errors or omissions
[2019-01-22 18:53] LABS: Amphetamine/Metha Screen,Urine Negative ng/mL (<1000); Barbiturates Screen,Urine Negative ng/mL (<200); Benzodiazepines Screen,Urine Negative ng/mL (<200); Cannabinoid Screen,Urine Negative ng/mL (<50); Cocaine Screen,Urine Negative ng/mL (<300); Methadone Screen,Urine Negative ng/mL (<300); Opiate Screen,Urine Positive ng/mL (<300); Phencyclidine Screen,Urine Negative ng/mL (<25)
[2019-01-28 18:07] LABS: Codeine Negative (Cutoff=100); Hydrocodone Negative (Cutoff=100); Hydromorphone Positive (.); Morphine Negative (Cutoff=100)
[2019-02-01 06:15] LABS: Opiates Positive (.)
== END ==
PROVIDERS: Visit Provider Clinical Nurse Specialist Family Health
DX: M51.16 Intervertebral disc disorders with radiculopathy, lumbar region (principal); M96.1 Postlaminectomy syndrome, not elsewhere classified; M46.1 Sacroiliitis, not elsewhere classified; M25.512 Pain in left shoulder; Z79.899 Other long term (current) drug therapy
CPT/HCPCS: 80305; 80361; 80365; 99212; G0480

== ENCOUNTER → 2019-04-23 11:29 | Outpatient (POV) | payer MEDICARE, OTHER, SELFPAY ==
[2019-04-23 11:38] VITALS: BP 133/80; PULSE 94; RESP 18; O2SAT 98; BMI 25.5
--- NOTE | 2019-04-23 12:08 | HMH.PAINSOAP ---
[facility] Pain Management SOAP Note Subjective:: Patient is a 68-year-old white male who presents today for medication refills. Patient recently had a new lumbar fusion. His main pain is been his left shoulder which is awaiting a replacement. 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 He is being seen this week by oncology. He is currently on Dilaudid 8 mg 1 p.o. 5 times a day and diazepam 5 mg p.o. twice daily for spasms. He rates his pain today an 8 out of 10 ROS General: no recent weight change, no fever, no sleep disturbances Respiratory: no cough, no shortness of air, no recurring pulmonary infections Cardiovascular/Peripheral Vascular: No chest pain, No palpitations, no edema, no shortness of breath. Gastrointestinal: no incontinence, normal bowel movements reported Genitourinary: no incontinence Musculoskeletal: Generalized pain, left chest wall pain, left shoulder pain Psychiatric: normal mood/ affect Neurological: [denies weakness in extremities], [denies balance issues] Objective:: Physical Exam General: Alert and oriented x3, no acute distress, pleasant and cooperative, [on room air] Lungs: Resps E/U, Symmetrical chest expansion, Eyes: PERRL Musculoskeletal: Flexion and extension of lumbar spine somewhat guarded secondary to pain, deep tendon reflexes normal, strength in upper and lower extremities [5/5], [abnormal gait noted] Neurological: speech clear, grader operator equal, no gross sensory deficits Assessment:: deGenerative disc disease lumbar spine lumbar radiculopathy along with postlaminectomy syndrome, left shoulder pain, new diagnosis of lung tumor Plan:: We will refill his Dilaudid 8 mg 1 p.o. 5 times a day and diazepam 5 mg 1 p.o. twice daily we will give him prescription is. We will see him back in 1 month after he has been seen by oncology to determine his pain needs. 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 Jose #[id number] reviewed. Urine drug screens have been appropriate. Dr. Santana has reviewed this note and agrees with this plan of care. This note was dictated using voice recognition software and may contain errors or omissions Patient has been prescribed a controlled substance after being counseled on the medication, medication safety, and possible side effects. JOSE report has been obtained and reviewed prior to prescription and found to be appropriate. Opioid contract was reviewed and signed by the patient, and that they have agreed to all of the terms set forth by our compliance program. Pain Management Hx Components *Have you ever received a pneumonia vaccine?: Yes *Have you received a flu vaccine this season?: Yes - *Social History *Occupational Status:: other *Travel in the last 8 weeks: None
--- NOTE | 2019-04-23 12:11 | P.CONS_ITS ---
[facility] Pain Management SOAP Note Subjective:: Patient is a 68-year-old white male who presents today for medication refills. Patient recently had a new lumbar fusion. His main pain is been his left shoulder which is awaiting a replacement. 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 He is being seen this week by oncology. He is currently on Dilaudid 8 mg 1 p.o. 5 times a day and diazepam 5 mg p.o. twice daily for spasms. He rates his pain today an 8 out of 10 ROS General: no recent weight change, no fever, no sleep disturbances Respiratory: no cough, no shortness of air, no recurring pulmonary infections Cardiovascular/Peripheral Vascular: No chest pain, No palpitations, no edema, no shortness of breath. Gastrointestinal: no incontinence, normal bowel movements reported Genitourinary: no incontinence Musculoskeletal: Generalized pain, left chest wall pain, left shoulder pain Psychiatric: normal mood/ affect Neurological: [denies weakness in extremities], [denies balance issues] Objective:: Physical Exam General: Alert and oriented x3, no acute distress, pleasant and cooperative, [on room air] Lungs: Resps E/U, Symmetrical chest expansion, Eyes: PERRL Musculoskeletal: Flexion and extension of lumbar spine somewhat guarded secondary to pain, deep tendon reflexes normal, strength in upper and lower extremities [5/5], [abnormal gait noted] Neurological: speech clear, lacing presser equal, no gross sensory deficits Assessment:: deGenerative disc disease lumbar spine lumbar radiculopathy along with postlaminectomy syndrome, left shoulder pain, new diagnosis of lung tumor Plan:: We will refill his Dilaudid 8 mg 1 p.o. 5 times a day and diazepam 5 mg 1 p.o. twice daily we will give him prescription is. We will see him back in 1 month after he has been seen by oncology to determine his pain needs. 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 Jose #[id number] reviewed. Urine drug screens have been appropriate. Dr. Santana has reviewed this note and agrees with this plan of care. This note was dictated using voice recognition software and may contain errors or omissions Patient has been prescribed a controlled substance after being counseled on the medication, medication safety, and possible side effects. JOSE report has been obtained and reviewed prior to prescription and found to be appropriate. Opioid contract was reviewed and signed by the patient, and that they have agreed to all of the terms set forth by our compliance program. Pain Management Hx Components *Have you ever received a pneumonia vaccine?: Yes *Have you received a flu vaccine this season?: Yes - *Social History *Occupational Status:: other *Travel in the last 8 weeks: None
== END ==
PROVIDERS: PCP Anesthesiology; Visit Provider Clinical Nurse Specialist Family Health
DX: M51.16 Intervertebral disc disorders with radiculopathy, lumbar region (principal); M96.1 Postlaminectomy syndrome, not elsewhere classified; M25.512 Pain in left shoulder; D49.1 Neoplasm of unspecified behavior of respiratory system
CPT/HCPCS: 99212

== ENCOUNTER → 2019-06-03 11:26 | Outpatient (POV) | payer MEDICARE, OTHER, SELFPAY ==
[2019-06-03 11:38] VITALS: BP 142/84; PULSE 95; RESP 18; O2SAT 98; BMI 25.2
--- NOTE | 2019-06-11 12:53 | P.CONS_ITS ---
[facility] Pain Management SOAP Note Subjective:: Patient is a pleasant 68-year-old white male who presents today for medication refills. Patient is currently on Dilaudid 5 times a day. Also on diazepam twice a day. Patient had recent lung surgery and has had extreme pain since then. He was not sent home on any additional medication. Patient and I discussed adding oxycodone 5 mg twice daily as needed for just 1 month. He he states he believes this would help. He rates his pain 8 out of 10. Patient has had multiple surgeries on his shoulders and his low back. As of now patient's biopsy from his lung has come back negative for cancer. ROS General: no recent weight change, no fever, no sleep disturbances Respiratory: no cough, no shortness of air, no recurring pulmonary infections Cardiovascular/Peripheral Vascular: No chest pain, No palpitations, no edema, no shortness of breath. Gastrointestinal: no new onset incontinence, normal bowel movements reported Genitourinary: no new onset incontinence Musculoskeletal: Back pain, left chest wall pain, shoulder pain Psychiatric: Anxious Neurological: [denies new onset weakness in extremities], [denies new onset balance issues] Objective:: Physical Exam General: Alert and oriented x3, no acute distress, pleasant and cooperative, [on room air] Lungs: Resps E/U, Symmetrical chest expansion, [CTA bilateral] Eyes: PERRL Musculoskeletal: Flexion and extension of thoracic and lumbar spine somewhat guarded secondary to pain, deep tendon reflexes normal, strength in upper and lower extremities [5/5], [abnormal gait noted] Neurological: speech clear, elastic attacher chainstitch equal, no gross sensory deficits Assessment:: Postlaminectomy syndrome, status post left shoulder repair with complication, status post lung surgery left side Plan:: We will continue his Dilaudid we will add oxycodone 5 mg 1 p.o. twice daily. For 1 month. We will also continue his diazepam. Patient also is having quite a bit of muscle spasms causing him severe chest wall pain. We will start him on baclofen 10 mg 1 p.o. 3 times daily. He is been instructed to call the office if he has any issues prior to his next appointment. I will see him back in 2 months reassess his symptoms at that time. Patient has been prescribed a controlled substance after being counseled on the medication, medication safety, and possible side effects. JOSE report has been obtained and reviewed prior to prescription and found to be appropriate. Opioid contract was reviewed and signed by the patient, and that they have agreed to all of the terms set forth by our compliance program. Dr. Santana has reviewed this note and agrees with this plan of care. This note was dictated using voice recognition software and may contain errors or omissions [facility] History I have reviewed the patient's past medical history: Yes *Have you ever received a pneumonia vaccine?: No *Have you received a flu vaccine this season?: No - *Social History *Occupational Status:: retired *Travel in the last 8 weeks: None Family Hx:: Non-contributory
== END ==
PROVIDERS: Visit Provider Clinical Nurse Specialist Family Health
DX: M96.1 Postlaminectomy syndrome, not elsewhere classified (principal); Z98.890 Other specified postprocedural states
CPT/HCPCS: 99212

== ENCOUNTER → 2019-07-01 11:13 | Outpatient (POV) | payer MEDICARE, OTHER, SELFPAY ==
[2019-07-01 11:38] VITALS: BP 144/75; PULSE 67; RESP 18; O2SAT 95; BMI 25.2
--- NOTE | 2019-07-01 12:52 | HMH.PAINSOAP ---
[facility] Pain Management SOAP Note Subjective:: Patient is a 68-year-old white male who presents today for medication refills. He is currently on Dilaudid 8 mg 1 p.o. 5 times a day. Also on diazepam twice a day. He had recent lung surgery and he was having extreme pain he was given 1 month of oxycodone. This will not be refilled. He rates his pain today a 10 out of 10 no acute distress noted patient's JOSE #[id number] reviewed and appropriate. His drug screens have been appropriate. ROS General: no recent weight change, no fever, no sleep disturbances Respiratory: no cough, no shortness of air, no recurring pulmonary infections Cardiovascular/Peripheral Vascular: No chest pain, No palpitations, no edema, no shortness of breath. Gastrointestinal: no new onset incontinence, normal bowel movements reported Genitourinary: no new onset incontinence Musculoskeletal: Back pain, shoulder pain, leg pain, chest wall pain Psychiatric: Anxious at times Neurological: [denies new onset weakness in extremities], [denies new onset balance issues] Objective:: Physical Exam General: Alert and oriented x3, no acute distress, pleasant and cooperative, [on room air] Lungs: Resps E/U, Symmetrical chest expansion, Eyes: PERRL Musculoskeletal: Flexion and extension of lumbar spine somewhat guarded secondary to pain, deep tendon reflexes normal, strength in upper and lower extremities [5/5], [abnormal gait noted] Neurological: speech clear, pin attacher equal, no gross sensory deficits Assessment:: Postlaminectomy syndrome, status post left shoulder repair with complications, status post lung surgery left side Plan:: We will refill his hydromorphone 8 mg 1 p.o. 5 times a day and his diazepam. We will give him 2 months worth of medication and see him back in 3 months reassess his symptoms at that time he is been instructed to call the office if he has any issues prior to his next appointment. Patient has been prescribed a controlled substance after being counseled on the medication, medication safety, and possible side effects. JOSE report has been obtained and reviewed prior to prescription and found to be appropriate. Opioid contract was reviewed and signed by the patient, and that they have agreed to all of the terms set forth by our compliance program. Dr. Santana has reviewed this note and agrees with this plan of care. This note was dictated using voice recognition software and may contain errors or omissions [facility] History I have reviewed the patient's past medical history: Yes *Have you ever received a pneumonia vaccine?: Yes *Have you received a flu vaccine this season?: Yes - *Social History *Occupational Status:: other *Travel in the last 8 weeks: None Family Hx:: Non-contributory
--- NOTE | 2019-07-01 12:56 | P.CONS_ITS ---
[facility] Pain Management SOAP Note Subjective:: Patient is a 68-year-old white male who presents today for medication refills. He is currently on Dilaudid 8 mg 1 p.o. 5 times a day. Also on diazepam twice a day. He had recent lung surgery and he was having extreme pain he was given 1 month of oxycodone. This will not be refilled. He rates his pain today a 10 out of 10 no acute distress noted patient's JOSE #[id number] reviewed and appropriate. His drug screens have been appropriate. ROS General: no recent weight change, no fever, no sleep disturbances Respiratory: no cough, no shortness of air, no recurring pulmonary infections Cardiovascular/Peripheral Vascular: No chest pain, No palpitations, no edema, no shortness of breath. Gastrointestinal: no new onset incontinence, normal bowel movements reported Genitourinary: no new onset incontinence Musculoskeletal: Back pain, shoulder pain, leg pain, chest wall pain Psychiatric: Anxious at times Neurological: [denies new onset weakness in extremities], [denies new onset balance issues] Objective:: Physical Exam General: Alert and oriented x3, no acute distress, pleasant and cooperative, [on room air] Lungs: Resps E/U, Symmetrical chest expansion, Eyes: PERRL Musculoskeletal: Flexion and extension of lumbar spine somewhat guarded secon radha to pain, deep tendon reflexes normal, strength in upper and lower extremities [5/5], [abnormal gait noted] Neurological: speech clear, 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 5 times a day and his diazepam. We will give him 2 months worth of medication and see him back in 3 months reassess his symptoms at that time he is been instructed to call the office if he has any issues prior to his next appointment. Patient has been prescribed a controlled substance after being counseled on the medication, medication safety, and possible side effects. JOSE report has been obtained and reviewed prior to prescription and found to be appropriate. Opioid contract was reviewed and signed by the patient, and that they have agreed to all of the terms set forth by our compliance program. Dr. Santana has reviewed this note and agrees with this plan of care. This note was dictated using voice recognition software and may contain errors or omissions [facility] History I have reviewed the patient's past medical history: Yes *Have you ever received a pneumonia vaccine?: Yes *Have you received a flu vaccine this season?: Yes - *Social History *Occupational Status:: other *Travel in the last 8 weeks: None Family Hx:: Non-contributory
== END ==
PROVIDERS: Visit Provider Clinical Nurse Specialist Family Health
DX: M96.1 Postlaminectomy syndrome, not elsewhere classified (principal); Y83.8 Other surgical procedures as the cause of abnormal reaction of the patient, or of later complication, without mention of misadventure at the time of the procedure
CPT/HCPCS: 99212

== ENCOUNTER → 2019-08-26 10:33 | Outpatient (POV) | payer MEDICARE, OTHER, SELFPAY ==
[2019-08-26 10:57] VITALS: BP 145/69; PULSE 75; RESP 18; O2SAT 99; BMI 25.2
--- NOTE | 2019-08-26 10:59 | P.CONS_ITS ---
[facility] Pain Management SOAP Note Subjective:: Patient is a pleasant 69-year-old white male who presents today for medication refills. He is being treated for pain secondary to postlaminectomy syndrome, status post left shoulder repair with complications, and status post lung surgery left side. He rates his pain a 10 out of 10 today. He says that his pain is still excruciating . He is managed with Dilaudid 8 mg 1 tablet. O 4 times daily his last visit, he was given oxycodone 5 mg 1 tablet p.o. twice daily for a month. Patient says the medication did help him with his pain. He is here today for refill on his Dilaudid. He is continuing with a home stretching program. Denies any side effects to his medications. His Jose #[id number] has been reviewed and is appropriate. His urine drug screens have been appropriate. Review of Systems General: No recent weight changes, no fever, no sleep disturbances Respiratory: No cough, no shortness of air, no recurring pulmonary infections Cardiovascular/peripheral vascular: No chest pain, no palpitations, no edema, no shortness of breath Gastrointestinal: No new onset incontinence, normal bowel movements reported Genitourinary: No new onset incontinence Musculoskeletal: Back pain Psychiatric: Normal mood/affect Neurological: [Denies weakness in extremities], [denies balance issues] Objective:: Physical exam General: Alert and oriented x3, no acute distress, pleasant and cooperative, [on room air] Lungs: Respirations even and unlabored, symmetrical chest expansion Eyes: PERRL Musculoskeletal: Flexion and extension of lumbar spine somewhat guarded secondary to pain, deep tendon reflexes normal, strength in upper and lower extremities [5/5], [abnormal gait noted] Neurological: Speech clear, camp program director equal, no gross sensory deficit Assessment:: Post laminectomy syndrome, status post left shoulder repair with complications, status post lung surgery left side Plan:: We will refill the patient's Dilaudid 8 mg 1 tablet p.o. 4 times daily. We will give him 2 months worth of medication and see him back in the clinic in 3 months to reassess his symptoms. He can hop picker his third month of medication in the interim. Patient has been instructed to contact the clinic if he has any conc erns before his next appointment. Dr. Santana has reviewed this note and agrees with this plan of care. This note was dictated using voice recognition software and make contain errors or omissions. Patient has been prescribed a controlled substance after being counseled on the medication, medication safety, and possible side effects. JOSE report has been obtained and reviewed prior to prescription and found to be appropriate. Opioid contract was reviewed and signed by the patient, and that they have agreed to all of the terms set forth by our compliance program. [facility] History I have reviewed the patient's past medical history: Yes *Have you ever received a pneumonia vaccine?: Yes *Have you received a flu vaccine this season?: No - *Social History *Occupational Status:: other *Travel in the last 8 weeks: None Family Hx:: Non-contributory
== END ==
PROVIDERS: Visit Provider Clinical Nurse Specialist Family Health
DX: M96.1 Postlaminectomy syndrome, not elsewhere classified (principal); T81.9XXA Unspecified complication of procedure, initial encounter; Z98.890 Other specified postprocedural states
CPT/HCPCS: 99212

== ENCOUNTER → 2019-10-01 14:03 | Outpatient (POV) | payer MEDICARE, OTHER, SELFPAY | PROVIDERS: Visit Provider Dermatology | DX: Z00.00 Encounter for general adult medical examination without abnormal findings (principal) ==

== ENCOUNTER → 2019-11-18 11:00 | Outpatient (POV) | payer MEDICARE, OTHER, SELFPAY ==
[2019-11-18 12:17] VITALS: BP 161/82; PULSE 71; RESP 18; O2SAT 99; BMI 25.1
--- NOTE | 2019-11-18 12:27 | HMH.PAINSOAP ---
[facility] Pain Management SOAP Note Subjective:: Patient is a pleasant 69-year-old white male who presents today for medication refills. He is being treated for pain secondary to postlaminectomy syndrome and is status post left shoulder repair. Patient currently on Dilaudid 8 mg 1 tablet p.o. 4 times a day patient is having quite a bit of severe pain at nighttime. His surgery has been postponed due to the coronavirus we discussed adding oxycodone 5 mg 1 tab at nighttime. Patient Jose #[id number] reviewed and appropriate. ROS General: no recent weight change, no fever, no sleep disturbances Respiratory: no cough, no shortness of air, no recurring pulmonary infections Cardiovascular/Peripheral Vascular: No chest pain, No palpitations, no edema, no shortness of breath. Gastrointestinal: no new onset incontinence, normal bowel movements reported Genitourinary: no new onset incontinence Musculoskeletal: Back pain, leg pain Psychiatric: normal mood/ affect, Neurological: [denies new onset weakness in extremities], [denies new onset balance issues] Objective:: Physical Exam General: Alert and oriented x3, no acute distress, pleasant and cooperative, [on room air] Lungs: Resps E/U, Symmetrical chest expansion, Eyes: PERRL Musculoskeletal: Flexion and extension of lumbar spine somewhat guarded secondary to pain, deep tendon reflexes normal, strength in upper and lower extremities [5/5], [abnormal gait noted] Neurological: speech clear, teacher of the emotionally disturbed equal, no gross sensory deficits Assessment:: Degenerative disc disease lumbar spine with lumbar radiculopathy, shoulder injury, postlaminectomy syndrome Plan:: We will give the patient his Dilaudid 8 mg 1 p.o. 4 times a day and oxycodone 5 mg 1 tablet p.o. nightly we will see him back in a month see if this is beneficial for him. Patient has been prescribed a controlled substance after being counseled on the medication, medication safety, and possible side effects. JOSE report has been obtained and reviewed prior to prescription and found to be appropriate. Opioid contract was reviewed and signed by the patient, and that they have agreed to all of the terms set forth by our compliance program.Dr. Santana has reviewed this note and agrees with this plan of care. This note was dictated using voice recognition software and may contain errors or omissions [facility] History I have reviewed the patient's past medical history: Yes *Have you ever received a pneumonia vaccine?: Yes *Have you received a flu vaccine this season?: Yes - *Social History *Occupational Status:: other *Travel in the last 8 weeks: None Family Hx:: Non-contributory
== END ==
PROVIDERS: Visit Provider Clinical Nurse Specialist Family Health
DX: M51.16 Intervertebral disc disorders with radiculopathy, lumbar region (principal); M96.1 Postlaminectomy syndrome, not elsewhere classified; Z98.890 Other specified postprocedural states; S49.92XA Unspecified injury of left shoulder and upper arm, initial encounter
CPT/HCPCS: 99212

== ENCOUNTER → 2019-12-16 11:42 | Outpatient (POV) | payer MEDICARE, OTHER, SELFPAY ==
--- NOTE | 2019-12-16 12:03 | P.CONS_ITS ---
[facility] Pain Management SOAP Note Subjective:: Patient is a pleasant 69-year-old white male who presents today for medication refills. He rates his pain a 10 out of 10 due to a recent fall. Patient is awaiting surgery for his shoulder. He has had his joint removed. Patient has had multiple surgical procedures on his back. He is currently on Dilaudid 8 mg 1 tab p.o. 4 times daily. He has quite a bit of severe pain at nighttime. His surgery has been postponed due to coronavirus. We added oxycodone 5 mg at bedtime. We discussed utilizing 1 to 2 pills at bedtime and he is agreeable. This will bring his morphine equivalent to 144. His Jose #[id number] reviewed and appropriate. Urine drug screens have been appropriate. ROS General: no recent weight change, no fever, no sleep disturbances Respiratory: no cough, no shortness of air, no recurring pulmonary infections Cardiovascular/Peripheral Vascular: No chest pain, No palpitations, no edema, no shortness of breath. Gastrointestinal: no new onset incontinence, normal bowel movements reported Genitourinary: no new onset incontinence Musculoskeletal: Back pain, leg pain, shoulder pain, hip pain Psychiatric: normal mood/ affect Neurological: [denies new onset weakness in extremities], [denies new onset balance issues] Objective:: Physical Exam General: Alert and oriented x3, no acute distress, pleasant and cooperative, [on room air] Lungs: Resps E/U, Symmetrical chest expansion, Eyes: PERRL Musculoskeletal: Flexion and extension of lumbar spine somewhat guarded secondary to pain, deep tendon reflexes normal, strength in upper and lower extremities [5/5], [abnormal gait noted] Neurological: speech clear, recruitment advertising manager equal, no gross sensory deficits Assessment:: Postlaminectomy syndrome, right hip pain, shoulder pain Plan:: We will refill his Dilaudid 8 mg 1 tab p.o. 4 times daily. After talking with Dr. Santana we will give him oxycodone 5 mg 1-2 tabs at nighttime. I will do an audio check in with the patient in 1 month reassess him at that time he has been instructed to call the office if he has any issues prior to his next appointment. We specifically discussed risk factors for Covid-19 including age, heart or lung disease, diabetes, immunosuppression and travel. We also discussed that NSAIDs may worsen Covid-19 infection symptoms and that they should not be used to treat Covid-19 symptoms. Patient was also informed that corticosteroids in any form oral or injectable will decrease immune response and may increase risk of Covid-[address] Santana has reviewed this patient's chart and this note and agrees with plan of care. Patient has b een instructed to call the office if they have any issues prior to the next appointment. Dr. Santana has reviewed this note and agrees with this plan of care. This note was dictated using voice recognition software and may contain errors or omissions Patient has been prescribed a controlled substance after being counseled on the medication, medication safety, and possible side effects. JOSE report has been obtained and reviewed prior to prescription and found to be appropriate. Opioid contract was reviewed and signed by the patient, and that they have agreed to all of the terms set forth by our compliance program. [facility] History I have reviewed the patient's past medical history: Yes *Have you ever received a pneumonia vaccine?: Yes *Have you received a flu vaccine this season?: Yes - *Social History *Occupational Status:: other *Travel in the last 8 weeks: None Family Hx:: Non-contributory
[2019-12-16 12:32] VITALS: BP 141/87; PULSE 82; RESP 18; TEMP 37.2; O2SAT 98; BMI 24.3
== END ==
PROVIDERS: Visit Provider Clinical Nurse Specialist Family Health
DX: M96.1 Postlaminectomy syndrome, not elsewhere classified (principal); M25.551 Pain in right hip; M25.519 Pain in unspecified shoulder
CPT/HCPCS: 99212

== ENCOUNTER → 2020-01-13 12:57 | Outpatient (POV) | payer MEDICARE, OTHER, SELFPAY ==
--- NOTE | 2020-01-14 08:36 | HMH.VVPMSO ---
[facility] PM Virtual Visit SOAP Consent for virtual visit:: With the recent concerns about the COVID-19, we are trying to minimize exposure to you by shifting to telehealth appointments whenever possible. It restricts me from seeing you in person, but the trade off is protecting you during this pandemic. Can you see and hear me okay, and do you consent to this option? If not, I would be happy to see if we can reschedule your appointment in the future, when feasible. Has patient consented to this virtual visit?: Yes Subjective:: Patient is a pleasant 61-year-old white male who presents today for follow-up. Patient is currently on Dilaudid 8 mg 1 tab p.o. 4 times daily and oxycodone 5 mg 1-2 tabs at nighttime. Patient overall doing well with this. He is having some increased pain rating it a 9 out of 10 in certain very specific areas such as his shoulder. We discussed utilizing a compounding cream. We will move forward with this. [facility] #[id number] reviewed and appropriate ROS General: no recent weight change, no fever, no sleep disturbances Respiratory: no cough, no shortness of air, no recurring pulmonary infections Cardiovascular/Peripheral Vascular: No chest pain, No palpitations, no edema, no shortness of breath. Gastrointestinal: no new onset incontinence, normal bowel movements reported Genitourinary: no new onset incontinence Musculoskeletal: Back pain, neck pain, arm pain, shoulder pain Psychiatric: normal mood/ affect, Neurological: [denies new onset weakness in extremities], [denies new onset balance issues] Objective:: Physical exam: Constitutional: Healthy appearing, well-developed, alert, in no acute distress Psychiatric: Judgment and insight intact, Alert and oriented x4 Mood and affect: Mood normal, affect appropriate Head and face: Inspection: Normocephalic atraumatic, extraocular movement intact Respiratory: Breathing nonlabored, nondyspneic Cardiovascular: No cyanosis, clubbing, or edema observed Skin: Head and neck: Skin with no lesions or rash observed Gait: Able to walk without assistive device: Able to heel and toe walk Neurologic: Sensation grossly intact per patient Musculoskeletal: Decreased range of motion left shoulder, decreased range of motion lumbar spine Assessment:: Degenerative disc disease lumbar spine lumbar radiculopathy, postlaminectomy syndrome, right hip pain, shoulder pain Plan:: We will continue his current medication regimen and add compounding cream. I will follow-up with him in 2 to 3 months reassess his symptoms at that time he has been instructed to call the office if he has any issues prior to his next appointment. Dr. Santana has reviewed this note and agrees with this plan of care. This note was dictated using voice recognition software and may contain errors or omissions this encounter was performed as a telemedicine visit via secure 2 way video and audio to minimize risk and transmission of Covid-19. The patient and we understand the limitations of a telemedicine visit including inability to check reflexes, possibly missing subtle findings on physical exam. Alternative options were presented to the patient and the patient elected to proceed with the visit. We specifically discussed risk factors for Covid-19 including age, heart or lung disease, diabetes, immunosuppression and travel. We also discussed that NSAIDs may worsen Covid-19 infection symptoms and that they should not be used to treat Covid-19 symptoms. Patient was also informed that corticosteroids in any form oral or injectable will decrease immune response and may increase risk of Covid-[address] Santana has reviewed this patient's chart and this note and agrees with plan of care. Patient has been instructed to call the office if they have any issues prior to the next appointment. Time In:: 12:50 Time Out:: 13:05 [facility] History I have reviewed the patient's past medical history: Yes *Have you ever received
== END ==
PROVIDERS: Visit Provider Clinical Nurse Specialist Family Health
DX: M51.16 Intervertebral disc disorders with radiculopathy, lumbar region (principal); M96.1 Postlaminectomy syndrome, not elsewhere classified; M25.519 Pain in unspecified shoulder; M25.551 Pain in right hip
CPT/HCPCS: 99212

== ENCOUNTER → 2020-02-10 09:46 | Outpatient (POV) | payer MEDICARE, OTHER, SELFPAY ==
[2020-02-10 10:20] VITALS: BP 142/68; PULSE 87; RESP 18; O2SAT 99; BMI 25.1
--- NOTE | 2020-02-10 12:38 | HMH.PAINSOAP ---
[facility] Pain Management SOAP Note Subjective:: Patient is a pleasant 69-year-old white male who presents today for follow-up. He is currently on Dilaudid 8 mg 1 tab p.o. 4 times daily and oxycodone 5 mg 2 tabs p.o. daily. Patient is currently doing well however he rates his pain a 9 out of 10. He has multi-sourced pain. Patient has had significant back surgery along with recent shoulder surgery. Patient is awaiting an additional shoulder surgery. Patient utilize compounding cream with no effect. Jose reviewed and appropriate. Jose #[id number]. He has extreme muscle spasms. He is on diazepam 5 mg 1 p.o. twice daily for this. He is recently been seen by physical medicine at . I am currently trying to get the notes from that visit along with his primary care visits. Patient states that he is struggling currently with IT neuralgia per Dr. Moreno at ROS General: no recent weight change, no fever, no sleep disturbances Respiratory: no cough, no shortness of air, no recurring pulmonary infections Cardiovascular/Peripheral Vascular: No chest pain, No palpitations, no edema, no shortness of breath. Gastrointestinal: no new onset incontinence, normal bowel movements reported Genitourinary: no new onset incontinence Musculoskeletal: Back pain, leg pain, neck pain, shoulder pain, right hip pain Psychiatric: normal mood/ affect Neurological: [denies new onset weakness in extremities], [denies new onset balance issues] Objective:: Physical Exam General: Alert and oriented x3, no acute distress, pleasant and cooperative, [on room air] Lungs: Resps E/U, Symmetrical chest expansion, Eyes: PERRL Musculoskeletal: Flexion and extension of lumbar spine somewhat guarded secondary to pain, deep tendon reflexes normal, strength in upper and lower extremities [5/5], [abnormal gait noted] Neurological: speech clear, 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 twice daily and Dilaudid 8 mg 1 tab p.o. 4 times daily. We will also refill his diazepam 5 mg 1 p.o. twice daily. Will give him enough for 2 months worth of medication. We will follow-up with him in 2 months reassess his symptoms at that time. He has been instructed to call the office if he has any issues prior to his next appointment. We will also get his notes from . Patient has been prescribed a controlled substance after being counseled on the medication, medication safety, and possible side effects. JOSE report has been obtained and reviewed prior to prescription and found to be appropriate. Opioid contract was reviewed and signed by the patient, and that they have agreed to all of the terms set forth by our compliance program. Dr. Santana has reviewed this note and agrees with this plan of care. This note was dictated using voice recognition software and may contain errors or omissions [facility] History I have reviewed the patient's past medical history: Yes *Have you ever received a pneumonia vaccine?: Yes *Have you received a flu vaccine this season?: Yes - *Social History *Occupational Status:: other *Travel in the last 8 weeks: None Family Hx:: Non-contributory
== END ==
PROVIDERS: Visit Provider Clinical Nurse Specialist Family Health
DX: M96.1 Postlaminectomy syndrome, not elsewhere classified (principal); M25.512 Pain in left shoulder; M79.2 Neuralgia and neuritis, unspecified
CPT/HCPCS: 99212

== ENCOUNTER → 2020-04-09 11:48 | Outpatient (POV) | payer MEDICARE, OTHER, SELFPAY ==
[2020-04-09 12:34] VITALS: BP 125/88; PULSE 85; RESP 18; O2SAT 99; BMI 25.8
--- NOTE | 2020-04-09 12:39 | HMH.PAINSOAP ---
[facility] Pain Management SOAP Note Subjective:: Patient is a pleasant 69-year-old white male who presents today for medication refills. He has been treated for left shoulder pain as well as postlaminectomy syndrome lumbar spine and neuralgia. He is managed with Valium 5 mg 1 tablet p.o. twice daily, as well as hydromorphone 8 mg 1 tablet p.o. 4 times daily. Patient denies any side effects to the medications. He rates his pain a 6 out of 10 today which is his baseline. Review of Systems General: No recent weight changes, no fever, no sleep disturbances Respiratory: No cough, no shortness of air, no recurring pulmonary infections Cardiovascular/peripheral vascular: No chest pain, no palpitations, no edema, no shortness of breath Gastrointestinal: No new onset incontinence, normal bowel movements reported Genitourinary: No new onset incontinence Musculoskeletal: Shoulder pain, low back pain Psychiatric: Normal mood/affect Neurological: [Denies weakness in extremities], [denies balance issues] Assessment:: Postlaminectomy syndrome lumbar spine, left shoulder pain, neuralgia Plan:: We will plan to refill the patient's hydromorphone 8 mg 1 tablet p.o. 4 times daily and diazepam 5 mg 1 tablet p.o. twice daily. We will give HER-2 months worth of medication and give him the third month in the interim. He has been instructed to contact clinic if he has any concerns before his next appointment. The patient and I specifically discussed risk factors for COVID19. These risks include, but are not limited to age greater than 60, heart or lung disease, diabetes, immunosuppression, and travel. We also discussed NSAIDs may worsen COVID19 infection or symptoms. Patient should not use NSAIDs to treat COVID19 signs or symptoms. Patient was also informed that any type of corticosteroid of any form (oral or injection) will decrease the patient's immune system response and may increase the likelihood of COVID19 infection [address] symptoms[address]. aSntana has reviewed this note and agrees with this plan of care. This note was dictated using voice recognition software and make contain errors or omissions. [facility] History I have reviewed the patient's past medical history: Yes *Have you ever received a pneumonia vaccine?: Yes *Have you received a flu vaccine this season?: Yes - *Social History *Occupational Status:: other *Travel in the last 8 weeks: None Family Hx:: Non-contributory
== END ==
PROVIDERS: Visit Provider Clinical Nurse Specialist Family Health
DX: M96.1 Postlaminectomy syndrome, not elsewhere classified (principal); M25.512 Pain in left shoulder; M79.2 Neuralgia and neuritis, unspecified
CPT/HCPCS: 99212

== ENCOUNTER → 2020-07-16 13:16 | Outpatient (POV) | payer MEDICARE, OTHER, SELFPAY ==
[2020-07-16 13:31] VITALS: BP 130/73; PULSE 75; RESP 18; TEMP 36.6; O2SAT 98; BMI 25.5
--- NOTE | 2020-07-16 15:04 | HMH.PAINSOAP ---
[facility] Pain Management SOAP Note Subjective:: Patient is a 70-year-old white male who presents today for medication refill. He is being treated for RSD along with degenerative disc disease lumbar spine with lumbar radiculopathy symptoms and left shoulder pain. He is managed with Valium 5 mg 1 tablet p.o. twice daily, hydromorphone 8 mg 1 tablet p.o. 4 times daily, and oxycodone 5 mg 1 tablet p.o. twice daily. Patient rates his pain a 9 out of 10 today. He is asking for more medication today. He says that the pain medication is not working for him. He says that he is having worsening pain. He is scheduled to see Dr. Caputo for possible surgical intervention. He is not interested in injective therapy or an implanted devices at this point. He says his ability to walk or move is limited due to the pain. Review of Systems General: No recent weight changes, no fever, no sleep disturbances Respiratory: No cough, no shortness of air, no recurring pulmonary infections Cardiovascular/peripheral vascular: No chest pain, no palpitations, no edema, no shortness of breath Gastrointestinal: No new onset incontinence, normal bowel movements reported Genitourinary: No new onset incontinence Musculoskeletal: Low back pain, bilateral lower extremity pain, left shoulder pain Psychiatric: Normal mood/affect Neurological: [Denies weakness in extremities], [denies balance issues] Objective:: Physical exam General: Alert and oriented x3, no acute distress, pleasant and cooperative, [on room air] Lungs: Respirations even and unlabored, symmetrical chest expansion Eyes: PERRL Musculoskeletal: Flexion and extension of lumbar and cervical spine somewhat guarded secondary to pain, deep tendon reflexes normal, strength in upper and lower extremities [5/5], [abnormal gait noted] Neurological: Speech clear, counter help equal, no gross sensory deficit Assessment:: Degenerative disc disease lumbar spine with lumbar radiculopathy symptoms, postlaminectomy syndrome syndrome lumbar spine Plan:: Patient does understand we will not be able to increase his medication. We will continue him on oxycodone 5 mg 1 tablet p.o. twice daily, hydromorphone 8 mg 1 tablet p.o. 4 times daily, and diazepam 5 mg 1 tablet p.o. twice daily. He is planning to see Dr. Caputo for possible surgical intervention. He does not want to proceed with any injections or implanted devices. We will follow-up with the patient in 3 months to reevaluate his symptoms. I have advised him that he will not get an increase in his medication, however, he would like to follow-up with Dr. Loyola at his next visit. The patient and I specifically discussed risk factors for COVID19. These risks include, but are not limited to age greater than 60, heart or lung disease, diabetes, immunosuppression, and travel. We also discussed NSAIDs may worsen COVID19 infection or symptoms. Patient should not use NSAIDs to treat COVID19 signs or symptoms. Patient was also informed that any type of corticosteroid of any form (oral or injection) will decrease the patient's immune system response and may increase the likelihood of COVID19 infection [address] symptoms[address] Santana has reviewed this note and agrees with this plan of care. This note was dictated using voice recognition software and make contain errors or omissions. Patient has been prescribed a controlled substance after being counseled on the medication, medication safety, and possible side effects. JOSE report has been obtained and reviewed prior to prescription and found to be appropriate. Opioid contract was reviewed and signed by the patient, and that they have agreed to all of the terms set forth by our compliance program. [facility] History I have reviewed the patient's past medical history: Yes *Have you ever received a pneumonia vaccine?: Yes *Have you received a flu vaccine this season?: Yes - *Social History *Occupational Status:: other *Travel in the last 8 we
[2020-07-16 15:48] LABS: Amphetamine/Metha Screen,Urine Negative ng/ml (<1000)
[2020-07-16 15:49] LABS: Barbiturates Screen,Urine Negative ng/ml (<200); Benzodiazepines Screen,Urine Positive ng/ml (<200)
[2020-07-16 15:50] LABS: Cannabinoid Screen,Urine Negative ng/ml (<50); Cocaine Screen,Urine Negative ng/ml (<300)
[2020-07-16 15:51] LABS: Methadone Screen,Urine Negative ng/ml (<300)
[2020-07-16 15:52] LABS: Opiate Screen,Urine Positive ng/ml (<300)
[2020-07-16 15:53] LABS: Phencyclidine Screen,Urine Negative ng/ml (<25)
[2020-07-22 07:11] LABS: Codeine Negative (Cutoff=100); Hydrocodone Negative (Cutoff=100); Hydromorphone Positive (.); Morphine Negative (Cutoff=100); Oxycodone (GC/MS) 137 ng/mL (Cutoff=100)
[2020-07-22 10:17] LABS: Opiates Positive (.); Oxymorphone (GC/MS) 147 ng/mL (Cutoff=100)
== END ==
PROVIDERS: Clinical Nurse Specialist Family Health; Visit Provider Clinical Nurse Specialist Family Health
DX: M51.16 Intervertebral disc disorders with radiculopathy, lumbar region (principal); M96.1 Postlaminectomy syndrome, not elsewhere classified; Z79.899 Other long term (current) drug therapy
CPT/HCPCS: 80305; 80361; 80365; 99212; G0480

== ENCOUNTER → 2020-10-16 10:45 | Outpatient (POV) | payer MEDICARE, OTHER, SELFPAY ==
[2020-10-16 11:08] VITALS: BP 155/67; PULSE 75; RESP 18; TEMP 36.6; O2SAT 98; BMI 24.3
--- NOTE | 2020-10-16 12:11 | HMH.PAINSOAP ---
[facility] Pain Management SOAP Note Subjective:: This patient is a pleasant 70-year-old white male who we are treating for degenerative disc disease of lumbar spine with lumbar radiculopathy symptoms and postlaminectomy syndrome of lumbar spine. He recently did see Dr. Caputo for surgical intervention. He is on Valium 5 mg twice a day, hydromorphone 8 mg 4 times a day and oxycodone 5 mg twice a day. Pain score is a 10 out of 10 today. His oral medications are not helping. I have told the patient that we will not prescribe him any more oral medications actually we need to decrease his hydromorphone to 8 mg 3 times a day as his morphine equivalent is 119 currently. I have talked to him about other options to help with his pain symptoms. I have given him information on intrathecal therapy as he is having more back pain than leg pain. We will seek approval for intrathecal pump trial. We will also see him prior to the trial to answer any questions and explained the process to he and his . Objective:: Alert and oriented x3 in no acute distress. Patient does have an antalgic gait. He is standing because he is in severe pain in his back and legs. Motor strength of the lower extremities is 5/5. There are no gross sensory deficit. Assessment:: Degenerative disc disease of lumbar spine with lumbar radiculopathy symptoms and postlaminectomy syndrome lumbar spine. Plan:: We have gone over several treatment options with him. We will adjust his medications at his next refill decreasing his hydromorphone to 8 mg 3 times a day. He will continue with his oxycodone 5 mg twice a day and Valium 5 mg twice a day. We will discuss intrathecal pump trial with bupivacaine. We will seek approval for the trial. His only option is to pursue intrathecal therapy or spinal cord stimulation to help with his pain symptoms as we will decrease his oral medications to decrease his morphine equivalent. [facility] History *Have you ever received a pneumonia vaccine?: Yes *Have you received a flu vaccine this season?: Yes - *Social History *Occupational Status:: retired *Travel in the last 8 weeks: None Family Hx:: Non-contributory
== END ==
PROVIDERS: PCP Internal Medicine; Visit Provider Anesthesiology
DX: M51.16 Intervertebral disc disorders with radiculopathy, lumbar region (principal); M96.1 Postlaminectomy syndrome, not elsewhere classified
CPT/HCPCS: 99212; G0463

== ENCOUNTER → 2020-11-12 12:58 | Outpatient (POV) | payer MEDICARE, OTHER, SELFPAY ==
[2020-11-12 14:00] VITALS: BP 133/79; PULSE 79; RESP 18; O2SAT 98; BMI 25.9
--- NOTE | 2020-11-16 08:47 | P.CONS_ITS ---
[facility] Pain Management SOAP Note Subjective:: Patient is a pleasant 70-year-old white male who presents today for follow-up. Patient had psychological evaluation for potential intrathecal therapy. Patient was an appropriate candidate. He is currently on oxycodone and hydromorphone with morphine equivalent 143. Patient would like to move forward with a intrathecal pain pump trial. Patient will decrease his opioids by over 50%. Patient and I discussed weaning off opiates prior to trial. He is agreeable. We also discussed his Valium use. Patient will no longer take Valium after pain pump is implanted. He is agreeable he rates his pain today a 10 out of 10 mostly in his low back. ROS General: no recent weight change, no fever, no sleep disturbances Respiratory: no cough, no shortness of air, no recurring pulmonary infections Cardiovascular/Peripheral Vascular: No chest pain, No palpitations, no edema, no shortness of breath. Gastrointestinal: no new onset incontinence, normal bowel movements reported Genitourinary: no new onset incontinence Musculoskeletal: Back pain, leg pain Psychiatric: normal mood/ affect Neurological: [denies new onset weakness in extremities], [denies new onset balance issues] Objective:: Physical Exam General: Alert and oriented x3, no acute distress, pleasant and cooperative, [on room air] Lungs: Resps E/U, Symmetrical chest expansion, Eyes: PERRL Musculoskeletal: Flexion and extension of lumbar spine somewhat guarded secondary to pain, deep tendon reflexes normal, strength in upper and lower extremities [5/5], [abnormal gait noted] 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 Patient understands weaning protocol. Patient is not on any anticoagulation therapy. I will follow-up with him afterwards reassess his symptoms at that time he has been instructed to call the office if he has any issues prior to his next appointment. Dr. Santana has reviewed this note and agrees with this plan of care. This note was dictated using voice recognition software and may contain errors or omissions [facility] History I have reviewed the patient's past medical history: Yes *Have you ever received a pneumonia vaccine?: Yes *Have you received a flu vaccine this season?: Yes - *Social History *Occupational Status:: other *Travel in the last 8 weeks: None Family Hx:: Non-contributory
== END ==
PROVIDERS: Visit Provider Clinical Nurse Specialist Family Health
DX: M51.16 Intervertebral disc disorders with radiculopathy, lumbar region (principal); M96.1 Postlaminectomy syndrome, not elsewhere classified
CPT/HCPCS: 99212; G0463

== ENCOUNTER 2020-11-20 08:32 | Day surgery (SDC) | payer MEDICARE, OTHER, SELFPAY ==
[2020-11-20] VITALS (9 sets, daily range): BP systolic 120–152; BP diastolic 59–95; PULSE 69–78; RESP 18–20; TEMP 36.6; O2SAT 95–98; BMI 25.2
--- NOTE | 2020-11-20 09:30 | HMH.PMPROC ---
- Procedure Date: 11/20/20 Time: 09:30 Anesthesiologist:: Reji Santana MD Complications:: None Pre-procedure Diagnosis:: Postlaminectomy syndrome lumbar spine with lumbar radiculopathy symptoms Post-procedure Diagnosis:: Same Indications for Procedure:: This patient is a pleasant 70-year-old white male who we are treating for low back pain with lumbar radicular symptoms and postlaminectomy syndrome of lumbar spine. He does have a morphine equivalent of 143 with oxycodone and hydromorphone. He is weaned himself off of this medication. He has not had any oxycodone in 48 hours. He did take 1 hydrocodone this morning. He is also on Valium for muscle spasms. He has increasing pain in his back and down both legs. He has failed all previous conservative treatments including injections, oral medications and previous surgery. He presents for intrathecal pump trial today. Pain score is a 10 out of 10 today. Procedure Details:: Pain pump trial Informed consent was obtained and the risk and benefits of the procedure was explained to the patient. The patient was taken to the procedure room and placed prone on the procedure table. Patient was prepped and draped in sterile fashion. C-arm fluoroscopy was used to view the lumbar spine. The skin and subcutaneous tissues were anesthetized using lidocaine. I placed a 18-gauge spinal needle into the L4-5 interspace and advanced until clear CSF was obtained. After this intrathecal catheter was inserted and advanced very easily to the L1 vertebral body. The needle was withdrawn. We were able to freely withdraw clear CSF through the catheter. We then injected intrathecal fentanyl single shot bolus of 40 mcg followed by saline and followed by the previous CSF that was withdrawn. The needle and catheter were then removed and a Band-Aid was placed. Patient tolerated the procedure well with no complications. We reevaluated the patient after 30 minutes to 1 hour. He was also reassessed by physical therapy. He is 80 to 100% better. He was more functional. He wants to proceed with permanent placement of intrathecal pain pump. This will be with intrathecal morphine 5 mg/mL to start at 0.5 mg/day. Catheter tip will be at the L1 vertebral body. Plan and Disposition:: We will have been seen by Dr. Lizette russo for permanent pain pump evaluation. We will plan on permanent placement of intrathecal pain pump. This will be with intrathecal morphine 5 mg/mL to start at 0.5 mg/day. We will start decreasing his oral medications. He will continue with his oxycodone and we will decrease his Dilaudid to twice a day dosing.
--- NOTE | 2020-11-20 11:19 | PC.NURSE ---
0900-PT at bedside for evaluation 0930-pt returned to bay via w/c, accompanied by nursing staff. VSS, states pain is 9 on scale of 0-10. pt provided with coffee per request. no other needs or concerns verbalized. spouse at bedside 0945-pt sitting in w/c, tolerating PO intake. VSS, no c/o pain in low back and legs. does report pain in shoulder. spouse remains at bedside. no needs or concerns a this time 1000-pt sitting in w/c. spouse at bedside. VSS, no c/o pain. no needs or concerns at this time. 1015-pt sitting in w/c. VSS, no c/o pain. spouse at bedside, no needs or concerns at this time. 1030-pt sitting in w/c, requests to go home denies pain. VSS. pt assisted to standing position, tolerated well. pt assisted to bathroom with steady gait. 1040-PT at bedside for evaluation. 1051-MD at bedside.
== END 2020-11-20 11:00 | disposition home or self-care (01) ==
PROVIDERS: PCP Internal Medicine; Visit Provider Anesthesiology
DX: M51.16 Intervertebral disc disorders with radiculopathy, lumbar region (principal); K21.9 Gastro-esophageal reflux disease without esophagitis; F41.9 Anxiety disorder, unspecified; F32.9 Major depressive disorder, single episode, unspecified; Z88.6 Allergy status to analgesic agent; Z72.0 Tobacco use; Z87.39 Personal history of other diseases of the musculoskeletal system and connective tissue; Z79.899 Other long term (current) drug therapy
CPT/HCPCS: 62323; 96365

== ENCOUNTER → 2020-12-17 13:56 | Outpatient (POV) | payer MEDICARE, OTHER, SELFPAY ==
[2020-12-17 14:33] VITALS: BP 142/74; PULSE 74; RESP 18; O2SAT 98; BMI 25.8
--- NOTE | 2020-12-17 15:01 | HMH.PMPROC ---
- Procedure Date: 12/17/20 Time: 15:01 Anesthesiologist:: Selena Jung APRN Complications:: None Pre-procedure Diagnosis:: Degenerative disc disease lumbar spine lumbar radiculopathy, postlaminectomy syndrome Post-procedure Diagnosis:: Same Indications for Procedure:: Is a 70-year-old white male who presents today for intrathecal pain pump adjustment. Patient was implanted a week ago. Patient's wound VAC was removed stitches are intact. No sign symptoms of infection he is currently on 0.5 milligram of morphine. He rates his pain a 9 out of 10. Patient was given a 0.25 mg bolus in the office it decreased his pain to a 7 out of 10. We will set up his PTC today and increase his daily dose. Patient states that he has a history of urinary retention he is currently on Flomax I discussed increasing this dose if necessary. Procedure Details:: Informed consent was obtained and the risk and benefits of the procedure were explained to the patient. The patient was taken to the procedure room where noninvasive monitoring was placed including noninvasive blood pressure cuff and pulse oximeter. Patient's pump was interrogated and reprogrammed. The infusion rate was increased to 0.75 mg of morphine a day and his PTC was set up at 0.25 mg up to 4 times a day. The patient tolerated the procedure well. Plan and Disposition:: We will see the patient back in 2 weeks to have his stitches removed. He has been instructed not to remove the stitches himself. I will follow-up with him afterwards reassess his symptoms at that time he has been instructed to call the office if he has any issues prior to his next appointment. Dr. Santana has reviewed this note and agrees with this plan of care. This note was dictated using voice recognition software and may contain errors or omissions
== END ==
PROVIDERS: Visit Provider Clinical Nurse Specialist Family Health
DX: M51.16 Intervertebral disc disorders with radiculopathy, lumbar region (principal); M96.1 Postlaminectomy syndrome, not elsewhere classified; Z45.1 Encounter for adjustment and management of infusion pump
CPT/HCPCS: 62368

== ENCOUNTER → 2020-12-24 10:45 | Outpatient (POV) | payer MEDICARE, OTHER, SELFPAY ==
[2020-12-24 10:55] VITALS: BP 142/74; PULSE 65; RESP 18; O2SAT 98; BMI 25.5
--- NOTE | 2020-12-24 12:55 | P.PCN_ITS ---
- Procedure Date: 12/24/20 Time: 12:56 Anesthesiologist:: Selena Jung APRN Complications:: None Pre-procedure Diagnosis:: Degenerative disc disease lumbar spine lumbar radiculopathy postlaminectomy syndrome Post-procedure Diagnosis:: Same Indications for Procedure:: Patient is a pleasant 70-year-old white male who presents today for intrathecal pain pump adjustment. Patient rates his pain a 9 out of 10 he is not getting relief. He denies side effects. Patient currently on 1.75 mg/day of morphine including his PTCs we discussed a change to periodic flow today. Patient is w ondering about his fentanyl trial. He states he did very well on his fentanyl trial. I discussed with him that if periodic flow does not work we can discuss a medication change. Procedure Details:: Informed consent was obtained and the risk and benefits of the procedure were explained to the patient. The patient was taken to the procedure room where noninvasive monitoring was placed including noninvasive blood pressure cuff and pulse oximeter. Patient's pump was interrogated and reprogrammed. The infusion rate was changed to periodic flow of 0.25 mg every 2 hours. The patient tolerated the procedure well. Plan and Disposition:: Patient back on Monday. We will reassess his symptoms at that time. He has been instructed to call the office if he has any issues prior to his next appointment. If he does not get relief we will discuss potentially changing him to fentanyl. Dr. Santana has reviewed this note and agrees with this plan of care. This note was dictated using voice recognition software and may contain errors or omissions
== END ==
PROVIDERS: Visit Provider Clinical Nurse Specialist Family Health
DX: M51.16 Intervertebral disc disorders with radiculopathy, lumbar region (principal); M96.1 Postlaminectomy syndrome, not elsewhere classified; Z45.1 Encounter for adjustment and management of infusion pump
CPT/HCPCS: 62368

== ENCOUNTER → 2020-12-28 10:13 | Outpatient (POV) | payer MEDICARE, OTHER, SELFPAY ==
--- NOTE | 2020-12-28 10:51 | HMH.PAINSOAP ---
[facility] Pain Management SOAP Note Subjective:: Patient is a 70-year-old white male who presents today for intrathecal pain pump adjustment. Patient stitches were removed. No sign symptoms of infection. Patient does have notable swelling around the pump. Patient's pump was unable to be read. Patient's pump must of flipped at this time. I discussed abdominal binder use with him. Patient rates his pain a 9 out of 10 he is currently on morphine 3 mg/day. Patient was on high doses of oral narcotics prior to the pump. I do believe he is not getting any relief from his morphine. Patient and I discussed switching to fentanyl. Patient had a good trial with fentanyl. Patient has had Dilaudid in the past and states that it does not help him. Patient would very much like to have the same relief that he had during his fentanyl trial. ROS General: no recent weight change, no fever, no sleep disturbances Respiratory: no cough, no shortness of air, no recurring pulmonary infections Cardiovascular/Peripheral Vascular: No chest pain, No palpitations, no edema, no shortness of breath. Gastrointestinal: no new onset incontinence, normal bowel movements reported Genitourinary: no new onset incontinence Musculoskeletal: Back pain, leg pain Psychiatric: normal mood/ affect Neurological: [denies new onset weakness in extremities], [denies new onset balance issues] Objective:: Physical Exam General: Alert and oriented x3, no acute distress, pleasant and cooperative, Lungs: Resps E/U, Symmetrical chest expansion, Eyes: PERRL Musculoskeletal: Flexion and extension of lumbar spine somewhat guarded secondary to pain, deep tendon reflexes normal, strength in upper and lower extremities [5/5], [abnormal gait noted] Neurological: speech clear, safe and vault installer equal, no gross sensory deficits Assessment:: Degenerative disc disease lumbar spine lumbar radiculopathy and postlaminectomy syndrome Plan:: We will set the patient up for a pain pump refill with catheter aspiration we will start him on fentanyl. We will plan on having his pump rotated at that time. Patient is unable to have any changes made to his pump today due to his pump being flipped. Patient wants to discuss locations. Patient had been prescribed oxycodone previously. Patient states he has been tremendous pain and would like to avoid going to the emergency room. I discussed with him taking low doses of his previously prescribed medications. Patient is agreeable. I will follow-up with him after he has his medication replaced. Dr. Santana has reviewed this note and agrees with this plan of care. This note was dictated using voice recognition software and may contain errors or omissions [facility] History I have reviewed the patient's past medical history: Yes Medical History: Reports:: Diabetes Mellitus Type 2 Denies:: Cancer, Diabetes Mellitus Type 1, MRSA, Seizures *Have you ever received a pneumonia vaccine?: Yes *Have you received a flu vaccine this season?: No Other Medical History: Denies: Blood Transfusion Reaction Laterality Cases: Left: Arthroscopy Shoulder, Bilateral: Tonsillectomy Other Surgeries: Yes: Bariatric Surgery (with reversal), Cholecystectomy, Colon Resection (actually gastric bypass), Other (L shoulder replacement) Amputation: No Fractures: No - *Social History Smoking Status: Current every day smoker Tobacco Type: cigarettes # Packs/Day (cigarettes): 1 Alcohol Intake: never *Occupational Status:: retired Housing: house Household Members: spouse *Travel in the last 8 weeks: None Family Hx:: Non-contributory
[2020-12-28 11:02] VITALS: BP 165/63; PULSE 74; RESP 18; O2SAT 98; BMI 25.1
== END ==
PROVIDERS: Visit Provider Clinical Nurse Specialist Family Health
DX: M51.16 Intervertebral disc disorders with radiculopathy, lumbar region (principal); M96.1 Postlaminectomy syndrome, not elsewhere classified
CPT/HCPCS: 62368; 99212; G0463

== ENCOUNTER 2021-01-01 14:49 | Day surgery (SDC) | payer MEDICARE, OTHER, SELFPAY ==
[2021-01-01 15:24] VITALS: BP 155/64; PULSE 80; RESP 18; TEMP 36.6; O2SAT 98; BMI 25.5
[2021-01-01 15:37] VITALS: BP 152/75; PULSE 71; RESP 18; O2SAT 98
[2021-01-01 15:42] VITALS: BP 155/68; PULSE 76; RESP 18; O2SAT 98
--- NOTE | 2021-01-01 16:08 | P.PCN_ITS ---
- Procedure Date: 01/01/21 Time: 16:08 Anesthesiologist:: Reji Santana MD Complications:: None Pre-procedure Diagnosis:: Degenerative disc disease of the lumbar spine with lumbar radiculopathy symptoms and postlaminectomy syndrome lumbar spine Post-procedure Diagnosis:: Same Indications for Procedure:: This patient is a pleasant 70-year-old white male who we are treating for low back pain with lumbar radiculopathy symptoms and postlaminectomy syndrome lumbar spine. He is on intrathecal morphine dose. He is not doing very well with his intrathecal morphine infusion. He also has fluid around his pump and his pump is flipped. We will flip his pump back and refill him with intrathecal fentanyl. We will start him at 50 mcg/day with PTC boluses of 10 mcg up to six times a day. Procedure Details:: Informed consent was obtained and the risks and benefits of the procedure was explained to the patient. The patient was taken to the procedure room. The p ump was interrogated. The area over the pump was prepped using ChloraPrep. The pump was accessed with a 22-gauge needle. Approximately 12 mL's of the intrathecal solution was withdrawn and discarded. The pump was then refilled with 20 mL's of intrathecal fentanyl 500 mcg per ml. After double catheter aspiration at the side-port, the pump was interrogated and the infusion was started at 50 mcg/day with PTC boluses 10 mcg every 4 hours. The patient tolerated the procedure well with no complication. Plan and Disposition:: We will follow-up with him in 1 week. Will reevaluate his symptoms at that time. We will make adjustments to his intrathecal infusion if needed. He may need to be on periodic flow if he does not get relief with this constant flow.
[2021-01-01 16:15] VITALS: BP 144/69; PULSE 70; RESP 18; O2SAT 98
== END 2021-01-01 16:15 | disposition home or self-care (01) ==
LOC: SC.PAINP 14:51
PROVIDERS: Visit Provider Anesthesiology
DX: M51.16 Intervertebral disc disorders with radiculopathy, lumbar region (principal); M96.1 Postlaminectomy syndrome, not elsewhere classified; K21.9 Gastro-esophageal reflux disease without esophagitis; E11.9 Type 2 diabetes mellitus without complications; I10 Essential (primary) hypertension; F41.9 Anxiety disorder, unspecified; F32.9 Major depressive disorder, single episode, unspecified; G43.909 Migraine, unspecified, not intractable, without status migrainosus; Z82.49 Family history of ischemic heart disease and other diseases of the circulatory system; Z83.3 Family history of diabetes mellitus; Z72.0 Tobacco use; Z72.89 Other problems related to lifestyle; Z88.6 Allergy status to analgesic agent
CPT/HCPCS: 62370; C1772

== ENCOUNTER → 2021-01-08 11:33 | Outpatient (POV) | payer MEDICARE, OTHER, SELFPAY ==
--- NOTE | 2021-01-08 12:10 | HMH.PMPROC ---
- Procedure Date: 01/08/21 Time: 12:10 Anesthesiologist:: Reji Santana MD Complications:: None Pre-procedure Diagnosis:: Degenerative disc disease of lumbar spine with lumbar radiculopathy symptoms and postlaminectomy syndrome lumbar spine Post-procedure Diagnosis:: Same Indications for Procedure:: Patient is a pleasant 70-year-old white male who we are treating for low back pain with lumbar radiculopathy symptoms and postlaminectomy syndrome lumbar spine. He is doing better after switching to intrathecal fentanyl. Pain is better however he still has some increased pain. He is using all of his boluses and is also taking ibuprofen and Tylenol every 6-8 hours. We will increase his intrathecal infusion today. He does have an antalgic gait. Motor strength of the lower extremities is 5/5. There is no gross sensory deficit. Procedure Details:: Analysis and interrogation of intrathecal pain pump with adjustment Informed consent was obtained risk and benefits of the procedure was explained to the patient. Patient was taken the procedure room. The pump was interrogated. Intrathecal fentanyl infusion was increased to 100 mcg/day. PTC boluses remained at 10 mcg up to 6 times a day. Total daily dose is 158 mcg/day. Patient tolerated procedure well with no complications. Plan and Disposition:: He does have some nausea. This is getting better. We will follow-up with him in 1 to 2 weeks. Will reevaluate his symptoms and make changes if needed.
[2021-01-08 12:11] VITALS: BP 175/72; PULSE 71; RESP 18; TEMP 36.8; O2SAT 98; BMI 25.6
== END ==
PROVIDERS: PCP Internal Medicine; Visit Provider Anesthesiology
DX: M51.16 Intervertebral disc disorders with radiculopathy, lumbar region (principal); M96.1 Postlaminectomy syndrome, not elsewhere classified; Z45.1 Encounter for adjustment and management of infusion pump; Z88.6 Allergy status to analgesic agent
CPT/HCPCS: 62368

== ENCOUNTER → 2021-01-15 11:40 | Outpatient (POV) | payer MEDICARE, OTHER, SELFPAY ==
[2021-01-15 11:57] VITALS: BP 136/76; PULSE 91; RESP 20; O2SAT 98; BMI 25.5
--- NOTE | 2021-01-15 12:16 | HMH.PMPROC ---
- Procedure Date: 01/15/21 Time: 12:17 Anesthesiologist:: Reji Santana MD Complications:: None Pre-procedure Diagnosis:: Degenerative disc disease of lumbar spine with lumbar radiculopathy symptoms and postlaminectomy syndrome lumbar spine Post-procedure Diagnosis:: Same Indications for Procedure:: Patient is a pleasant 70-year-old white male who we are treating for low back pain with lumbar radiculopathy symptoms and postlaminectomy syndrome lumbar spine. He is having some increasing pain in his back and down his legs today. We will switch him to periodic flow with 50 mcg boluses every 4 hours for total daily dose of 300 mcg/day. His previous daily dose was 160 mcg/day. He has no nausea no side effects at this time. Procedure Details:: Analysis and reprogram of intrathecal fentanyl pain pump Informed consent was obtained the risk and benefits of the procedure were explained to the patient. Patient was taken the procedure room. The pump was interrogated. Intrathecal fentanyl infusion was increased to 300 mcg/day on periodic flow 50 mcg boluses every 4 hours. Patient tolerated procedure well with no complications. Plan and Disposition:: We will follow-up with him in one 1 week. Will reevaluate his symptoms at that time. We will make further changes to his intrathecal pain pump if needed. If he does not respond to this we will switch him back to a constant flow and increase his dose to 400 mcg/day.
== END ==
PROVIDERS: Visit Provider Anesthesiology
DX: M51.16 Intervertebral disc disorders with radiculopathy, lumbar region (principal); M96.1 Postlaminectomy syndrome, not elsewhere classified; Z45.1 Encounter for adjustment and management of infusion pump
CPT/HCPCS: 62368

== ENCOUNTER → 2021-01-22 11:42 | Outpatient (POV) | payer MEDICARE, OTHER, SELFPAY ==
[2021-01-22 12:58] VITALS: BP 162/73; PULSE 80; RESP 18; TEMP 36.7; O2SAT 97; BMI 26.6
--- NOTE | 2021-01-22 15:38 | P.PCN_ITS ---
- Procedure Date: 01/22/21 Time: 15:40 Anesthesiologist:: Brielle Lieberman MD Complications:: None Pre-procedure Diagnosis:: Narrative disc disease of the lumbar spine with right lumbar radiculopathy symptoms, and postlaminectomy syndrome of lumbar spine Post-procedure Diagnosis:: Same Indications for Procedure:: Patient is a 70-year-old white male who has low back pain with lumbar radic ulopathy and post laminectomy syndrome of the lumbar spine. He was last seen 1 week ago at which time we adjusted his pump dosing. However today he continues to experience significant pain in his back and down his legs. We will switch him back to constant flow and increase his dose to 400 mcg/day Procedure Details:: Analysis and reprogram of intrathecal fentanyl pain pump Informed consent was obtained, the risk and benefits of the procedure were explained to the patient. Patient was taken back to the procedure room. The pump was interrogated. Intrathecal fentanyl infusion was changed from periodic flow to continuous flow and the dose was increased to 400 mcg/day on continuous flow Plan and Disposition:: We will follow up in 1 week. We will reevaluate his symptoms at that time adjust pump dosing as needed
--- NOTE | 2021-02-02 13:08 | PC.NURSE ---
called in RX for valium 5mg, one PO BID PRN anxiety. Disp #30, no refills to pt's pharmacy per Dr. Santana's order.
== END ==
PROVIDERS: Visit Provider Anesthesiology Pain Medicine
DX: M51.16 Intervertebral disc disorders with radiculopathy, lumbar region (principal); M96.1 Postlaminectomy syndrome, not elsewhere classified; Z88.6 Allergy status to analgesic agent; Z79.899 Other long term (current) drug therapy
CPT/HCPCS: 62368

== ENCOUNTER 2021-01-29 12:33 | Emergency (ER) | payer OTHER, SELFPAY ==
[2021-01-29] VITALS (7 sets, daily range): BP systolic 123–151; BP diastolic 67–83; PULSE 78–93; RESP 16–18; TEMP 36.6–37; O2SAT 96–98; BMI 24.8
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
--- NOTE | 2021-01-29 14:37 | PC.NURSE ---
Lolis from pain management at bedside
== END 2021-01-29 16:16 | disposition home or self-care (01) ==
PROVIDERS: Emergency Provider Emergency Medicine; PCP Internal Medicine
DX: S16.1XXA Strain of muscle, fascia and tendon at neck level, initial encounter (principal); S46.912A Strain of unspecified muscle, fascia and tendon at shoulder and upper arm level, left arm, initial encounter; G44.319 Acute post-traumatic headache, not intractable; S80.11XA Contusion of right lower leg, initial encounter; V43.62XA Car passenger injured in collision with other type car in traffic accident, initial encounter; Y92.413 State road as the place of occurrence of the external cause
CPT/HCPCS: 70450; 71045; 72125; 72170; 73030; 73590; 96374; 96375; 99282

== ENCOUNTER → 2021-02-05 11:45 | Day surgery (SDC) | payer MEDICARE, OTHER, SELFPAY ==
[2021-02-05 12:13] VITALS: BP 132/76; PULSE 99; RESP 18; TEMP 36.7; O2SAT 99; BMI 25.2
[2021-02-05 12:24] VITALS: BP 132/48; PULSE 94; RESP 18; O2SAT 96
[2021-02-05 12:26] VITALS: BP 129/54; PULSE 88; RESP 18; O2SAT 96
[2021-02-05 13:30] VITALS: BP 105/63; PULSE 87; RESP 20; O2SAT 98
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
== END ==
PROVIDERS: PCP Internal Medicine; Visit Provider Anesthesiology Pain Medicine
DX: M51.16 Intervertebral disc disorders with radiculopathy, lumbar region (principal); M96.1 Postlaminectomy syndrome, not elsewhere classified; Z45.1 Encounter for adjustment and management of infusion pump
CPT/HCPCS: 61070; 62370; 95991; C1772; Q9966

== ENCOUNTER → 2021-02-12 11:52 | Outpatient (POV) | payer MEDICARE, OTHER, SELFPAY ==
[2021-02-12 13:00] VITALS: BP 150/71; PULSE 100; RESP 18; TEMP 36.4; O2SAT 97; BMI 24.8
--- NOTE | 2021-02-12 15:20 | HMH.PMPROC ---
- Procedure Date: 02/12/21 Time: 15:20 Anesthesiologist:: Brielle Lieberman MD Complications:: None Pre-procedure Diagnosis:: Disc disease of the lumbar spine, lumbar radiculopathy, postlaminectomy syndrome of lumbar spine Post-procedure Diagnosis:: Same Indications for Procedure:: This is a very pleasant 70-year-old male with low back pain radiating into both legs related diagnoses. He underwent an intrathecal catheter dye study last visit as well as a double cap To switch him to bupivacaine 5 mg/mL. At last visit only performed the catheter dye study we noticed that the pain pump catheter is functioning appropriately and is patent. He was started on bupivacaine 5 mg/mL at 2.5 mg/day on continuous dosing. Today he states that he continues to experience pain. The plan for today is to increase his daily dose by an additional 20% and to switch him from continuous flow to periodic flow better pain control. Procedure Details:: Informed consent was obtained and the risks and benefits of the procedure was explained to the patient. The pump was interrogated and the patient is currently on bupivacaine 5 mg/mL 2.5 mg/day. We increased the infusion by 20% and switched him from continuous dose to periodic flow; he is now receiving 0.75 mg boluses 4 times a day, is new daily dose is bupivacaine 5 mg/mL at 3 mg/day. The patient tolerated the procedure well with no complications. His reservoir volume is 16.1 mL. Next refill date is on [March 05, 2021]. Plan and Disposition:: We will follow up with the patient in 1 week. Will revaluate the patient at that time and make further adjustments if needed. We can plan on increasing him an additional 20% at the next visit if he continues to complain of pain
== END ==
PROVIDERS: Visit Provider Anesthesiology Pain Medicine
DX: M51.16 Intervertebral disc disorders with radiculopathy, lumbar region (principal); M96.1 Postlaminectomy syndrome, not elsewhere classified; Z45.1 Encounter for adjustment and management of infusion pump
CPT/HCPCS: 62368; 99212; G0463

== ENCOUNTER → 2021-02-18 11:43 | Outpatient (POV) | payer MEDICARE, OTHER, SELFPAY ==
[2021-02-18 12:09] VITALS: BP 142/64; PULSE 93; RESP 18; O2SAT 97; BMI 24.8
--- NOTE | 2021-02-18 13:04 | HMH.PMPROC ---
- Procedure Date: 02/18/21 Time: 11:45 Anesthesiologist:: Gale Parker APRN Complications:: None Pre-procedure Diagnosis:: Degenerative disc disease lumbar spine with lumbar radiculopathy symptoms Post-procedure Diagnosis:: Same Indications for Procedure:: Patient is a 70-year-old white male who presents today for follow-up and for intrathecal pain pump adjustment. He has been treated for degenerative disc disease lumbar spine with lumbar radiculopathy symptoms. Patient rates his pain a 10 out of 10 today. He says that his pain is worse to his low back and bilateral lower extremities. He does have an intrathecal pain pump with bupivacaine at 3 mg/day. He would like an adjustment today. We will adjust the patient's medication to see if he gets relief. We will give him a bolus while he is in the clinic. Patient does get diazepam per Dr. Loyola. [facility] #[id number] has been reviewed and is appropriate. Of note, the patient did have a discrepancy in his reservoir volume at his last visit with Dr. Lieberman. Physical exam General: Alert and oriented x3, no acute distress, pleasant and cooperative, [on room air] Lungs: Respirations even and unlabored, symmetrical chest expansion Eyes: PERRL Musculoskeletal: Flexion and extension of [] lumbar spine somewhat guarded secondary to pain, deep tendon reflexes normal, strength in upper and lower extremities [5/5], [abnormal gait noted] Neurological: Speech clear, medical illustrator equal, no gross sensory deficit Procedure Details:: Informed consent was obtained and the risk and benefits of the procedure were explained to the patient. Patient was taken to the procedure room where noninvasive monitoring was placed including noninvasive blood pressure cuff and pulse oximeter. Patient's pump was interrogated and was reprogrammed to bupivacaine at periodic flow at 0.25 mg every 2 hours. Daily dose bupivacaine 3 mg/day. The patient tolerated the procedure well with no complications. Plan and Disposition:: Patient's intrathecal pain pump was flipped today. It was repositioned and was reprogrammed to periodic flow at bupivacaine at 0.25 mg every 2 hours. He was given a 0.25 mg bolus while in the clinic and tolerated it well. His pain did go from a 10 out of 10 to a 7 out of 10. We will plan to follow-up with patient in 2 weeks for reevaluation of symptoms. Patient has been instructed to contact the clinic with any concerns before the next appointment. Dr. Santana has reviewed this note and agrees with this plan of care. This note was dictated using voice recognition software and make contain errors or omissions.
== END ==
PROVIDERS: Visit Provider Clinical Nurse Specialist Family Health
DX: M51.16 Intervertebral disc disorders with radiculopathy, lumbar region (principal); Z45.1 Encounter for adjustment and management of infusion pump
CPT/HCPCS: 62368

== ENCOUNTER → 2021-02-25 10:58 | Outpatient (POV) | payer MEDICARE, OTHER, SELFPAY ==
[2021-02-25 11:16] VITALS: BP 142/63; PULSE 71; RESP 18; O2SAT 95; BMI 24.7
--- NOTE | 2021-02-25 12:55 | HMH.PMPROC ---
- Procedure Date: 02/25/21 Time: 10:45 Anesthesiologist:: Gale Parker APRN Complications:: None Pre-procedure Diagnosis:: Degenerative disc disease lumbar spine with lumbar radicular symptoms, chronic back pain Post-procedure Diagnosis:: Same Indications for Procedure:: Patient is a 70-year-old white male who presents today for intrathecal pain pump adjustment. The patient was seen in the clinic on 02/18/2021 for an intrathecal pain pump refill. He rates his pain a 12 out of 10 today. He says his pain is progressively worsening. He has been managed with multiple medications in his intrathecal pump along with oral medications. He is now on bupivacaine at 3 mg/day. He continues to have worsening pain. Patient is refusing a neurosurgical evaluation. He has had 4 lumbar spine surgeries in the past. He says he does not want to undergo any further injections or surgeries to his lumbar spine. He is currently on bupivacaine at 0.25 mg every 2 hours. Patient says he wants to have numbness every 2 hours. I have explained to the patient that is not the goal of the intrathecal therapy. The goal is to give the patient relief. The patient seems to have an really listing expectations of the intrathecal pump. He is asking today if this is the end of the road . Patient I have had a long discussion at his previous intrathecal refill as well as today concerning the expectations and the limited options that we have left with treatment for the patient. We have managed him with oral medications as well as intrathecal therapy. He is not interested in neurosurgical evaluation or with injections. Our next option is to allow the patient to give himself boluses rather than periodic flow. He would like to try these. Again, I have expressed to the patient our limited options with him. If this does not work, there is very little that we can offer the patient at this point. Patient is very unhappy with this answer, however, we have exhausted all measures. Physical exam General: Alert and oriented x3, no acute distress, pleasant and cooperative, Lungs: Respirations even and unlabored, symmetrical chest expansion Eyes: PERRL Musculoskeletal: Flexion and extension of lumbar spine somewhat guarded secondary to pain, deep tendon reflexes normal, strength in upper and lower extremities [4/5], [abnormal gait noted] Neurological: Speech clear, senior information security analyst equal, no gross sensory deficit Procedure Details:: Informed consent was obtained and the risk and benefits of the procedure were explained to the patient. Patient was taken to the procedure room where noninvasive monitoring was placed including noninvasive blood pressure cuff and pulse oximeter. Patient's pump was interrogated and was reprogrammed to bupivacaine PTC device 0.30 mg every 2 hours to run over in 3 minutes. Continuous flow 0 mg/day .. The patient tolerated the procedure well with no complications. Plan and Disposition:: Patient will undergo a refill next week. We will plan to change his concentration to bupivacaine 15 mg per mill. His daily dose is now at 3.6 mg daily, PTC set at 0.30 mg every 2 hours. Patient has been instructed to contact the clinic with any concerns before the next appointment. Dr. Santana has reviewed this note and agrees with this plan of care. This note was dictated using voice recognition software and make contain errors or omissions.
== END ==
PROVIDERS: Visit Provider Clinical Nurse Specialist Family Health
DX: M51.16 Intervertebral disc disorders with radiculopathy, lumbar region (principal); G89.29 Other chronic pain; Z45.1 Encounter for adjustment and management of infusion pump
CPT/HCPCS: 62368; 99212; G0463

== ENCOUNTER 2021-02-26 10:28 | Day surgery (SDC) | payer MEDICARE, OTHER, SELFPAY ==
[2021-02-26 10:48] VITALS: BP 125/81; PULSE 73; RESP 18; TEMP 36.6; O2SAT 97; BMI 24.0
[2021-02-26 11:03] VITALS: BP 155/77; PULSE 84; RESP 18; O2SAT 98
[2021-02-26 11:06] VITALS: BP 147/83; PULSE 75; RESP 18; O2SAT 98
--- NOTE | 2021-02-26 11:17 | HMH.PMPROC ---
- Procedure Date: 02/26/21 Time: 11:17 Anesthesiologist:: Brielle Lieberman MD Complications:: None Pre-procedure Diagnosis:: degenerative disc disease of lumbar spine, lumbar radiculopathy Post-procedure Diagnosis:: Same Indications for Procedure:: This is a very pleasant 70-year-old white male who presents today with chronic back pain radiating into his legs related to the above diagnosis. He has an intrathecal pain pump with the flowonix pump system. Currently on bupivacaine 5 mg/mL on PTC bolusing without any continuous flow with 0.3 mg PTC boluses, 12 times a day, 2-hour lockout, with a daily dose of 3.6 mg/day. He states that he would prefer to have it back to automatic administration of medication without any bolus administration. He also reports that his pump had flipped but he was able to flip it back on his own few days ago. Today I will confirm orientation of the pump under fluoroscopy and I will perform an intrathecal pain pump refill and reprogram. Procedure Details:: Informed consent was obtained and the risks and benefits of the procedure was explained to the patient. The patient was taken to the procedure room. The pump was interrogated. The area over the pump was prepped using ChloraPrep. The pump was accessed with a 22-gauge needle. Approximately [9.5] mL's of the intrathecal solution was withdrawn and discarded. The pump was then refilled with 20 mL's of intrathecal [bupivacaine 5 mg/mL]. The pump was interrogated and the infusion was [switched from PTC boluses to perioidic flow with 0.3mg boluses, 12 boluses per day, with a 2 hour lockout, with a total max daily dose of 3.6mg/day]. The patient tolerated the procedure well with no complications. Next refill date is on [03/21/21]. Plan and Disposition:: The pump appeared to be in correct orientation after it was visualized under fluoroscopy. Patient tolerated the procedure well without any complications. We will follow up with the patient in 1 week and possibly increase his periodic dose boluses by 20% if pain persists. His next refill is March 21, 2021 and he will likely benefit from increasing concentrations of his bupivacaine to 7.5 mg per ml at the next visit.
[2021-02-26 11:30] VITALS: BP 125/82; PULSE 79; RESP 20; O2SAT 97
== END 2021-02-26 11:30 | disposition home or self-care (01) ==
LOC: SC.PAINP 10:29
PROVIDERS: Visit Provider Anesthesiology Pain Medicine
DX: M51.16 Intervertebral disc disorders with radiculopathy, lumbar region (principal); Z45.1 Encounter for adjustment and management of infusion pump; I10 Essential (primary) hypertension; Z72.0 Tobacco use; E78.5 Hyperlipidemia, unspecified; K21.9 Gastro-esophageal reflux disease without esophagitis; F41.9 Anxiety disorder, unspecified; F32.9 Major depressive disorder, single episode, unspecified; Z88.6 Allergy status to analgesic agent; Z79.899 Other long term (current) drug therapy
CPT/HCPCS: 62370

== ENCOUNTER → 2021-03-08 15:13 | Outpatient (POV) | payer MEDICARE, OTHER, SELFPAY ==
[2021-03-08 15:21] VITALS: BP 129/77; PULSE 89; RESP 18; TEMP 36.6; O2SAT 98; BMI 24.0
--- NOTE | 2021-03-08 16:15 | HMH.PMPROC ---
- Procedure Date: 03/08/21 Time: 16:15 Anesthesiologist:: Gale Parker APRN Complications:: None Pre-procedure Diagnosis:: Degenerative disc disease lumbar spine with lumbar radiculopathy symptoms, chronic back pain Post-procedure Diagnosis:: Same Indications for Procedure:: Patient is a 70-year-old white male who presents today for intrathecal pain pump adjustment. He has been treated for degenerative disc disease lumbar spine with lumbar radiculopathy symptoms. Patient is being seen in the clinic weekly due to worsening low back pain. Patient reports he has had more than 4 back surgeries and continues to have worsening pain. He says today that his only relief has been with OxyContin . In the clinic, he has managed with intrathecal therapy of bupivacaine at 3.6 mg/day, periodic flow at 0.3 mg every 2 hours. He is also managed with oxycodone 10 mg 1 tablet p.o. 4 times daily and diazepam 5 mg 1 tablet p.o. daily. Patient says that his pain is not improving. He is asking for additional medication. Patient I had a long talk at his last visit as well as today. He understands that we are limited with options at this point. We will not be increasing the patient's oral medication regimen. He is back to his maximum amount for what we will be able to prescribe in this clinic. I have advised the patient if he requires additional medication by mouth, he will need to contact an alternative pain management clinic for oral medication management. Patient is not happy that we are not able to prescribe him on higher doses of medications. He is not happy with the plan of care of increasing his intrathecal pain pump because he says it does not give him relief. Patient says that he wants to feel when the medication kicks in . Patient has been educated on numerous visits that bupivacaine will not give him a euphoric feeling. Patient has been on high doses of medications in the past with no long-term relief. He has also been managed with hydromorphone 8 mg twice daily in the past. He continues to have worsening low back pain. Patient also reports that he is out of his medication. He was due for a refill on 03/07/2021. Patient says he has been out of his medication since of last week. Patient was educated that he should not have been out of his medication that soon due to getting the medication 4 times daily. He says that his medication bottle says every 4-6 hours. He has been advised to bring the bottle to the office so that we can review the instructions on the bottle. If the patient does have every 4-6 hours noted to the bottle, this is a discrepancy per the pharmacy. At any rate, he does need a refill of the medication. Dr. Loyola has been advised. His pain is a 10 out of [address] Lieberman's last note, she did formulate a plan of care of increasing the patient by 20% if he does not get significant relief. Today, we will change his dosing to periodic flow of 4.32 mg. We will give the patient 0.18 mg of bupivacaine every hour. The patient will need an increase in his concentration of medication. We will plan to increase his concentration to 10 mg per male of bupivacaine at his next intrathecal refill. Physical exam General: Alert and oriented x3, no acute distress, pleasant and cooperative, [on room air] Lungs: Respirations even and unlabored, symmetrical chest expansion Eyes: PERRL Musculoskeletal: Flexion and extension of lumbar spine somewhat guarded secondary to pain, deep tendon reflexes normal, strength in upper and lower extremities [5/5], [abnormal gait noted] Neurological: Speech clear, electric wirer equal, no gross sensory deficit Procedure Details:: Informed consent was obtained and the risk and benefits of the procedure were explained to the patient. Patient was taken to the procedure room where noninvasive monitoring was placed including noninvasive blood pressure cuff and pulse oximeter. Patient's pump w
== END ==
PROVIDERS: PCP Internal Medicine; Visit Provider Clinical Nurse Specialist Family Health
DX: M51.16 Intervertebral disc disorders with radiculopathy, lumbar region (principal); G89.29 Other chronic pain; Z45.1 Encounter for adjustment and management of infusion pump
CPT/HCPCS: 62368; 99212; G0463

== ENCOUNTER 2021-03-15 15:39 | Day surgery (SDC) | payer MEDICARE, OTHER, SELFPAY ==
[2021-03-15 15:42] VITALS: BP 172/80; PULSE 92; RESP 18; TEMP 36.6; O2SAT 98; BMI 24.0
[2021-03-15 16:01] VITALS: BP 131/68; PULSE 90; RESP 18; O2SAT 98
[2021-03-15 16:03] VITALS: BP 131/68; PULSE 89; RESP 18; O2SAT 98
--- NOTE | 2021-03-15 16:12 | P.PCN_ITS ---
- Procedure Date: 03/15/21 Time: 16:00 Anesthesiologist:: Gale Parker APRN Complications:: None Pre-procedure Diagnosis:: Degenerative disc disease lumbar spine with lumbar radiculopathy symptoms, chronic back pain Post-procedure Diagnosis:: Same Indications for Procedure:: Patient is a 70-year-old white male who presents today for intrathecal pain pump refill and reprogram. He has been treated for degenerative disc disease lumbar spine with lumbar radiculopathy symptoms. He is currently on intrathecal therapy at bupivacaine at 4.8 mg/day, periodic flow. He would like an increase today. He will also undergo a concentration change today. He is also managed with oxycodone 5 mg 1 tablet p.o. twice daily. His pain is a 7 out of 10. Physical exam General: Alert and oriented x3, no acute distress, pleasant and cooperative, [on room air] Lungs: Respirations even and unlabored, symmetrical chest expansion Eyes: PERRL Musculoskeletal: Flexion and extension of lumbar spine somewhat guarded secondary to pain, deep tendon reflexes normal, strength in upper and lower extremities [5/5], [abnormal gait noted] Neurological: Speech clear, paint process engineer equal, no gross sensory deficit Procedure Details:: Informed consent was obtained and the risk and benefits of the procedure were explained to the patient. The patient was taken to the procedure room where noninvasive monitoring was placed including noninvasive blood pressure cuff and pulse oximeter. Patient's pump was interrogated. The area over the pump was cleansed with chlorhexidine as a cleansing solution. In sterile fashion the pump was accessed with a 22-gauge needle. Approximately 10 mls of the pump solution was removed and discarded appropriately. The pump was then refilled with 20 mL's of bupivacaine 10 mg per mill. The needle was withdrawn and a bandage was placed over the puncture site. The infusion rate was reprogrammed at bupivacaine 6 mg/day, periodic flow 0.25 mg every hour. The patient tolerated well with no complication. Plan and Disposition:: We will plan to increase his concentration once again at his next intrathecal refill to 15 mg/mL. Patient has been instructed to contact the clinic with any concerns before the next appointment. Dr. Santana has reviewed this note and agrees with this plan of care. This note was dictated using voice recognition software and make contain errors or omissions.
[2021-03-15 16:15] VITALS: BP 165/75; PULSE 88; RESP 20; O2SAT 98
== END 2021-03-15 16:15 | disposition home or self-care (01) ==
LOC: SC.PAINP 15:40
PROVIDERS: PCP Internal Medicine; Visit Provider Clinical Nurse Specialist Family Health
DX: M51.16 Intervertebral disc disorders with radiculopathy, lumbar region (principal); G89.29 Other chronic pain; Z45.1 Encounter for adjustment and management of infusion pump
CPT/HCPCS: 62370

== ENCOUNTER 2021-04-05 14:18 | Day surgery (SDC) | payer MEDICARE, OTHER, SELFPAY ==
[2021-04-05 14:29] VITALS: BP 136/70; PULSE 92; RESP 18; TEMP 36.6; O2SAT 98; BMI 24.7
[2021-04-05 14:43] VITALS: BP 143/73; PULSE 87; RESP 18; O2SAT 95
[2021-04-05 14:47] VITALS: BP 139/76; PULSE 92; RESP 18; O2SAT 98
--- NOTE | 2021-04-05 14:52 | HMH.PMPROC ---
- Procedure Date: 04/05/21 Time: 14:52 Anesthesiologist:: Gale Parker APRN Complications:: None Pre-procedure Diagnosis:: Degenerative disc disease lumbar spine with lumbar radiculopathy symptoms Post-procedure Diagnosis:: Same Indications for Procedure:: Patient is a 70-year-old white male who presents today for intrathecal pain pump refill and reprogram. He has been treated for degenerative disc disease lumbar spine with lumbar radiculopathy symptoms. He has an intrathecal pain pump of bupivacaine at 6 mg/day, periodic flow at 0.25 mg every hour. He denies any side effects and would like an increase. His pain is an 8 out of 10 today. He is also managed with oxycodone 10 mg 1 tablet p.o. 4 times daily and diazepam 5 mg 1 tablet p.o. daily. His Sharif #[id number] has been reviewed and is appropriate. Drug screen is appropriate. Physical exam General: Alert and oriented x3, no acute distress, pleasant and cooperative, [on room air] Lungs: Respirations even and unlabored, symmetrical chest expansion Eyes: PERRL Musculoskeletal: Flexion and extension of lumbar [spine] somewhat guarded secondary to pain, strength in upper and lower extremities [5/5], [antalgic gait noted] Neurological: Speech clear, [paper products machine operator equal], no gross sensory deficit Procedure Details:: Informed consent was obtained and the risk and benefits of the procedure were explained to the patient. The patient was taken to the procedure room where noninvasive monitoring was placed including noninvasive blood pressure cuff and pulse oximeter. Patient's pump was interrogated. The area over the pump was cleansed with chlorhexidine as a cleansing solution. In sterile fashion the pump was accessed with a 22-gauge needle. Approximately 8 mls of the pump solution was removed and discarded appropriately. The pump was then refilled with 20 mL's of bupivacaine 15 mg per male. The needle was withdrawn and a bandage was placed over the puncture site. The infusion rate was reprogrammed at bupivacaine at 7.2 mg/day, periodic flow at 0.3 mg every hour. The patient tolerated well with no complication. Plan and Disposition:: Patient will get a refill on his diazepam 5 mg 1 tablet p.o. daily and oxycodone 10 mg 1 tablet p.o. 4 times daily. We will see the patient back at the next refill. If the patient has any questions, contact the clinic.
[2021-04-05 14:58] VITALS: BP 123/62; PULSE 79; RESP 20; O2SAT 98
== END 2021-04-05 14:58 | disposition home or self-care (01) ==
LOC: SC.PAINP 14:20
PROVIDERS: PCP Internal Medicine; Visit Provider Clinical Nurse Specialist Family Health
DX: M51.16 Intervertebral disc disorders with radiculopathy, lumbar region (principal); Z45.1 Encounter for adjustment and management of infusion pump; E78.5 Hyperlipidemia, unspecified; I10 Essential (primary) hypertension; E11.9 Type 2 diabetes mellitus without complications
CPT/HCPCS: 62370

== ENCOUNTER → 2021-04-30 11:55 | Outpatient (POV) | payer MEDICARE, OTHER, SELFPAY ==
[2021-04-30 12:29] VITALS: BP 140/97; PULSE 75; RESP 20; TEMP 36.9; O2SAT 98; BMI 24.8
--- NOTE | 2021-04-30 13:07 | HMH.PMPROC ---
- Procedure Date: 04/30/21 Time: 13:07 Anesthesiologist:: Reji Santana MD Complications:: None Pre-procedure Diagnosis:: Degenerative disc disease of lumbar spine with lumbar radiculopathy symptoms Post-procedure Diagnosis:: Same Indications for Procedure:: Patient is a pleasant 70-year-old white male who we are treating for low back pain with lumbar radiculopathy symptoms. He currently has an intrathecal bupivacaine pain pump in place. He is still having some increasing pain. We did assess his catheter placement it seems to be in proper position it is also dorsal in the intrathecal space. We did give him a single shot bolus of 0.5 mg while here in the clinic from which he did get some relief. We will adjust him to 0.5 mg boluses every hour increasing his total daily dose to 12 mg/day. Procedure Details:: Analysis and reprogram of intrathecal bupivacaine pain pump. Informed consent was obtained risk and benefits of the procedure were explained to the patient. Patient was taken the procedure room. The catheter was assessed under fluoroscopy and found to be in proper position. The patient was given a 0.5 mg bolus while here in the clinic. He did get some relief so we did make adjustments to his periodic boluses to 0.5 mg every hour. Total daily dose was increased to 12 mg/day. Patient tolerated procedure well with no complications. Plan and Disposition:: We will follow-up with this patient in 1 week. We will also make adjustments to his intrathecal oxycodone. We will increase his oxycodone to 10 mg 1 tablet 6 times a day. Sharif and drug screen are all appropriate Sharif [id number].
== END ==
PROVIDERS: PCP Internal Medicine; Visit Provider Anesthesiology
DX: M51.16 Intervertebral disc disorders with radiculopathy, lumbar region (principal); Z45.1 Encounter for adjustment and management of infusion pump
CPT/HCPCS: 62368; 99212; G0463

== ENCOUNTER 2021-05-07 10:21 | Day surgery (SDC) | payer MEDICARE, OTHER, SELFPAY ==
[2021-05-07 10:24] VITALS: BP 144/61; PULSE 79; RESP 18; TEMP 36.9; O2SAT 94; BMI 23.3
[2021-05-07 10:44] VITALS: BP 148/75; PULSE 75; RESP 18; O2SAT 96
[2021-05-07 10:47] VITALS: BP 148/75; PULSE 74; RESP 18; O2SAT 96
--- NOTE | 2021-05-07 11:00 | HMH.PMPROC ---
- Procedure Date: 05/07/21 Time: 11:00 Anesthesiologist:: Reji Santana MD Complications:: None Pre-procedure Diagnosis:: Degenerative disc disease of lumbar spine with lumbar radiculopathy symptoms Post-procedure Diagnosis:: Same Indications for Procedure:: This patient is a pleasant 70-year-old white male who we have been treating for low back pain with lumbar radiculopathy symptoms. He does have increasing pain in his low back however with the changes we did last visit switching him to periodic flow with 0.5 mg boluses every hour this has helped. We will refill him today we will increase his bolus amount he still having some increasing pain but overall he is doing somewhat better. Sharif and drug screen are all appropriate. He does have an antalgic gait. Motor strength of the lower extremities is 5/5. There is no gross sensory deficit. Procedure Details:: Informed consent was obtained and the risks and benefits of the procedure was explained to the patient. The patient was taken to the procedure room. The pump was interrogated. The area over the pump was prepped using ChloraPrep. The pump was accessed with a 22-gauge needle. Approximately 3 mL's of the intrathecal solution was withdrawn and discarded. The pump was then refilled with 20 mL's of intrathecal bupivacaine 15 mg per ml. The pump was interrogated and the infusion was continued on periodic flow with bolus amounts increased to 0.7 milligrams every hour increasing total daily dose to 16.8 mg/day. The patient tolerated the procedure well with no complication. Plan and Disposition:: We will follow-up with him in 2 weeks. Will reevaluate symptoms at that time.
[2021-05-07 11:02] VITALS: BP 128/68; PULSE 69; RESP 20; O2SAT 94
== END 2021-05-07 11:03 | disposition home or self-care (01) ==
LOC: SC.PAINP 10:22
PROVIDERS: PCP Internal Medicine; Visit Provider Anesthesiology
DX: M51.16 Intervertebral disc disorders with radiculopathy, lumbar region (principal); E78.5 Hyperlipidemia, unspecified; I10 Essential (primary) hypertension; N40.0 Benign prostatic hyperplasia without lower urinary tract symptoms; F41.9 Anxiety disorder, unspecified; F32.9 Major depressive disorder, single episode, unspecified; G43.909 Migraine, unspecified, not intractable, without status migrainosus; Z88.6 Allergy status to analgesic agent; Z79.899 Other long term (current) drug therapy
CPT/HCPCS: 62370

== ENCOUNTER 2021-05-28 09:16 | Day surgery (SDC) | payer MEDICARE, OTHER, SELFPAY ==
[2021-05-28 09:22] VITALS: BP 136/86; PULSE 79; RESP 20; TEMP 37; O2SAT 98; BMI 24.3
[2021-05-28 10:04] VITALS: BP 150/81; PULSE 74; RESP 18; O2SAT 97
[2021-05-28 10:05] VITALS: BP 150/78; PULSE 75; RESP 18; O2SAT 98
[2021-05-28 10:16] VITALS: BP 139/62; PULSE 74; RESP 20; O2SAT 97
--- NOTE | 2021-05-28 10:27 | HMH.PMPROC ---
- Procedure Date: 05/28/21 Time: 10:27 Anesthesiologist:: Reji Santana MD Complications:: None Pre-procedure Diagnosis:: Degenerative disc disease of lumbar spine with lumbar radiculopathy symptoms and postlaminectomy syndrome lumbar spine Post-procedure Diagnosis:: Same Indications for Procedure:: Patient is a pleasant 70-year-old white male who we are treating for low back pain with lumbar radiculopathy symptoms. He has an intrathecal bupivacaine pain pump in place. At his last home refill there was a discrepancy in his actual reservoir volume versus estimated reservoir volume. He had 10 mL in his reservoir went only for mL were supposed to be present. We will do an intrathecal catheter dye study and pump study today to assess patency of his intrathecal catheter and proper functioning of his pump. Patient does have intermittent times of pain overall though he is better. Procedure Details:: Intrathecal catheter dye study and pump study Form consent was obtained risk and benefits of the procedure were explained to the patient. Patient was taken the procedure room. The area over the pump was prepped using ChloraPrep. The reservoir of the pump was accessed estimated reservoir volume was 13.6 mL. Actual reservoir volume was 14 mL which was accurate. We then accessed the catheter access port with a 22-gauge needle. We were able to withdraw medication and CSF through the catheter access port. We did inject dye catheter is found to be patent and in proper position. There was good spread of the dye. The pump and catheter were functioning properly and patent and in proper position. We then reprogrammed the pump and increased his periodic boluses to 0.8 mg every hour. Also we adjusted this to going over 2 minutes. We will communicate this to his home refill nurse. We will follow-up with him in the pain clinic here in the next 2 to 3 weeks. Patient tolerated procedure well with no complications. Plan and Disposition:: Patient's pump appears to be functioning properly with catheter patent and in proper position. We have made changes to the intrathecal infusion. We will communicate this to the [facility] home refill nurse.
== END 2021-05-28 10:17 | disposition home or self-care (01) ==
LOC: SC.PAINP 09:17
PROVIDERS: PCP Internal Medicine; Visit Provider Anesthesiology
DX: M51.16 Intervertebral disc disorders with radiculopathy, lumbar region (principal); M96.1 Postlaminectomy syndrome, not elsewhere classified; Z45.1 Encounter for adjustment and management of infusion pump; E78.5 Hyperlipidemia, unspecified; I10 Essential (primary) hypertension; Z72.0 Tobacco use; N40.0 Benign prostatic hyperplasia without lower urinary tract symptoms; F41.9 Anxiety disorder, unspecified; F32.9 Major depressive disorder, single episode, unspecified; M19.90 Unspecified osteoarthritis, unspecified site; Z98.0 Intestinal bypass and anastomosis status; Z87.19 Personal history of other diseases of the digestive system
CPT/HCPCS: 61070; 75809; C1772; Q9966

== ENCOUNTER → 2021-06-11 10:12 | Outpatient (POV) | payer MEDICARE, OTHER, SELFPAY ==
[2021-06-11 11:06] VITALS: BP 141/87; PULSE 75; RESP 20; TEMP 36.5; O2SAT 99; BMI 24.4
--- NOTE | 2021-06-11 11:14 | HMH.PMPROC ---
- Procedure Date: 06/11/21 Time: 11:14 Anesthesiologist:: Reji Santana MD Complications:: None Pre-procedure Diagnosis:: Postlaminectomy syndrome with degenerative disc disease of lumbar spine with lumbar radiculopathy symptoms Post-procedure Diagnosis:: Same Indications for Procedure:: This patient is a pleasant 70-year-old white male who we are treating for low back pain with lumbar radiculopathy symptoms. He has increasing pain in his back rating down his legs. We have done to catheter dye studies and found that his catheter is patent. However, he has had volume discrepancies with the last 2 pump refills. The actual residual volume is a lot more than the expected volume. He apparently is not getting all of his medication. This is either a problem with the pump or intermittent kinking of the intrathecal catheter. He does have increasing pain. We have had him turn back to constant flow he is currently going at 15 mg/day of intrathecal bupivacaine. We will increase his intrathecal infusion today. We will also renew his oxycodone and his diazepam. Sharif and drug screen are appropriate Sharif [id number]. Procedure Details:: Adjustment of intrathecal bupivacaine infusion Informed consent was obtained risk and benefits of the procedure were explained to the patient. Patient was taken the procedure room. The intrathecal pump was interrogated. Intrathecal bupivacaine infusion was increased to 18 mg/day from 15 mg/day. He remains on a constant infusion. Patient tolerated procedure well with no complications. Plan and Disposition:: We will follow-up with him in 1 month. We will schedule him for replacement of his intrathecal pain pump and catheter. We will also refill his oxycodone 10 mg 1 tablet 6 times a day. His pharmacy ran out of 10 mg tablets so they switched him to 5 mg tablets, 2 tablets 6 times a day. We will also refill his diazepam 5 mg twice a day. We will give a 1 month supply.
== END ==
PROVIDERS: PCP Internal Medicine; Visit Provider Anesthesiology
DX: M96.1 Postlaminectomy syndrome, not elsewhere classified (principal); M51.16 Intervertebral disc disorders with radiculopathy, lumbar region; Z45.1 Encounter for adjustment and management of infusion pump
CPT/HCPCS: 62368

== ENCOUNTER 2021-06-25 15:10 | Day surgery (SDC) | payer MEDICARE, OTHER, SELFPAY ==
[2021-06-25 15:14] VITALS: BP 138/87; PULSE 73; RESP 18; TEMP 36.7; O2SAT 97; BMI 24.3
--- NOTE | 2021-06-25 15:19 | HMH.PMPROC ---
- Procedure Date: 06/25/21 Time: 15:19 Anesthesiologist:: Reji Santana MD Complications:: None Pre-procedure Diagnosis:: Degenerative disc disease of lumbar spine with lumbar radiculopathy symptoms Post-procedure Diagnosis:: Same Indications for Procedure:: Patient is a pleasant 70-year-old white male who we have been treating for low back pain with lumbar radiculopathy symptoms. He has had some discrepancies in his pump refills previously. He currently is going at 18 mg/day of intrathecal bupivacaine. He is also on oxycodone 10 mg 6 times a day. He presents for intrathecal pump refill today. He is scheduled in the next couple weeks for replacement of his pump and catheter. Sharif and drug screen are all appropriate. He is currently on oral medications as we are reducing his pain pump infusion. Procedure Details:: Informed consent was obtained and the risks and benefits of the procedure was explained to the patient. The patient was taken to the procedure room. The pump was interrogated. The area over the pump was prepped using ChloraPrep. The pump was accessed with a 22-gauge needle. Approximately 9 mL's of the intrathecal solution was withdrawn and discarded. Affected amount was 3.6 mL. The pump was then refilled with 20 mL's of intrathecal bupivacaine 20 mg per ml. The pump was interrogated and the infusion was continued at 18 mg/day. Patient tolerated procedure well with no complications. Plan and Disposition:: We will follow-up with him on replacement of his intrathecal pain pump pain catheter. We will try to get this done in [place] on this .
[2021-06-25 15:28] VITALS: BP 186/93; PULSE 80; RESP 18; O2SAT 96
[2021-06-25 15:30] VITALS: PULSE 81; RESP 18; O2SAT 98
[2021-06-25 15:41] VITALS: BP 165/87; PULSE 78; RESP 18; TEMP 36.7; O2SAT 99
== END 2021-06-25 15:43 | disposition home or self-care (01) ==
LOC: SC.PAINP 15:11
PROVIDERS: PCP Internal Medicine; Visit Provider Anesthesiology
DX: M51.16 Intervertebral disc disorders with radiculopathy, lumbar region (principal); E78.5 Hyperlipidemia, unspecified; I10 Essential (primary) hypertension; M19.90 Unspecified osteoarthritis, unspecified site; E11.9 Type 2 diabetes mellitus without complications; K58.9 Irritable bowel syndrome, unspecified; K21.9 Gastro-esophageal reflux disease without esophagitis; F41.9 Anxiety disorder, unspecified; F32.9 Major depressive disorder, single episode, unspecified; Z72.0 Tobacco use; Z98.84 Bariatric surgery status; Z88.6 Allergy status to analgesic agent
CPT/HCPCS: 62323

== ENCOUNTER → 2021-07-09 08:32 | Outpatient (POV) | payer MEDICARE, OTHER, SELFPAY ==
[2021-07-09 09:14] VITALS: BP 152/72; PULSE 87; RESP 20; O2SAT 97; BMI 24.3
--- NOTE | 2021-07-09 09:47 | HMH.PMPROC ---
- Procedure Date: 07/09/21 Time: 09:47 Anesthesiologist:: Reji Santana MD Complications:: None Pre-procedure Diagnosis:: Degenerative disc disease of lumbar spine with lumbar radiculopathy symptoms and postlaminectomy syndrome lumbar spine Post-procedure Diagnosis:: Same Indications for Procedure:: Patient is a pleasant 71-year-old white male who we have been treating for low back pain with lumbar radiculopathy symptoms and postlaminectomy syndrome lumbar spine. He was having significant discrepancies with his intrathecal pain pump infusion. We did do catheter dye studies and found that the catheter was patent and in proper position he continued to have issues with his pain pump so we replace his intrathecal pain pump and catheter last week. We did decrease his dose to 10 mg/day of intrathecal bupivacaine. Patient does present back today in a better mood with better relief of his pain symptoms. Pain score is a 7 out of 10. He is much more functional. Incisions are healing very nicely. There is no swelling no signs of redness no signs of infection. We will increase his dose as he is having some increased pain with increased activity. We will increase him to 12 mg/day of intrathecal bupivacaine. Also we will renew his oxycodone he is currently on 10 mg 6 times a day. Sharif and drug screen are all appropriate Sharif [id number]. Procedure Details:: Analysis and reprogramming of intrathecal pain pump Informed consent was obtained and the risk and benefits of the procedure were explained to the patient. The pump was interrogated. Intrathecal bupivacaine infusion was increased from 10 mg/day to 12 mg/day. Patient tolerated the procedure well with no complications. Incision was checked its healing very nicely no signs of infection no signs of seroma around the pump no swelling no redness. Plan and Disposition:: We will follow-up with him in 1 week. Will reevaluate his symptoms at that time. We will make further adjustments to the pump if needed.
== END ==
PROVIDERS: Visit Provider Anesthesiology
DX: M51.16 Intervertebral disc disorders with radiculopathy, lumbar region (principal); M96.1 Postlaminectomy syndrome, not elsewhere classified; Z45.1 Encounter for adjustment and management of infusion pump
CPT/HCPCS: 62368

== ENCOUNTER → 2021-07-19 13:59 | Day surgery (SDC) | payer MEDICARE, OTHER, SELFPAY ==
--- NOTE | 2021-07-19 14:03 | HMH.PMPROC ---
- Procedure Date: 07/19/21 Time: 14:03 Anesthesiologist:: Gale Parker APRN Complications:: None Pre-procedure Diagnosis:: Degenerative disc disease lumbar spine with lumbar radiculopathy symptoms Post-procedure Diagnosis:: Same Indications for Procedure:: Patient is a pleasant 71-year-old white male who presents today for intrathecal pain pump [refill] [and reprogram]. The patient is being treated for low back pain with continued low back pain. He recently underwent at pain pump change out. He have sutures in place. He has been wearing his abdominal binder. Patient rates pain a 6 out of 10. Drug screen is appropriate. Sharif [ ] has been reviewed and is appropriate. He was recently refilled on his oxycodone 10 mg 1 tablet p.o. 6 times daily. He has intrathecal therapy of bupivacaine at 12 mg/day without any side effects. We will remove the sutures today. The patient's incision is well approximated, no redness, no drainage, no edema to site sutures are intact at this time. No seroma noted around the pump. Physical exam General: Alert and oriented x3, no acute distress, pleasant and cooperative, [on room air] Lungs: Respirations even and unlabored, symmetrical chest expansion Eyes: PERRL Musculoskeletal: Flexion and extension of lumbar [spine] somewhat guarded secondary to pain, [antalgic gait noted] Neurological: Speech clear, no gross sensory deficit Procedure Details:: Informed consent was obtained and the risk and benefits of the procedure were explained to the patient. The patient was taken to the procedure room where noninvasive monitoring was placed including noninvasive blood pressure cuff and pulse oximeter. Patient's pump was interrogated. The area over the pump was cleansed with chlorhexidine as a cleansing solution. In sterile fashion the pump was accessed with a 22-gauge needle. Approximately 6986 mls of the pump solution was removed and discarded appropriately. The pump was then refilled with 20 mL's of bupivacaine 20 mg per male. The needle was withdrawn and a bandage was placed over the puncture site. The infusion rate was reprogrammed at bupivacaine 12 mg per. The patient tolerated well with no complication. Plan and Disposition:: Sutures were removed from the patient's pump today. He has been encouraged to continue wearing his abdominal binder. Patient has been instructed to contact the clinic with any concerns before the next appointment. Dr. Santana has reviewed this note and agrees with this plan of care. This note was dictated using voice recognition software and make contain errors or omissions.
[2021-07-19 14:12] VITALS: BP 147/92; PULSE 84; RESP 18; TEMP 36.3; O2SAT 99; BMI 23.6
[2021-07-19 14:35] VITALS: BP 148/89; PULSE 86; RESP 18; O2SAT 99
[2021-07-19 15:00] VITALS: BP 136/79; PULSE 84; RESP 20; O2SAT 98
[2021-07-19 19:18] LABS: Amphetamine/Metha Screen,Urine Negative ng/ml (<1000); Barbiturates Screen,Urine Negative ng/ml (<200)
[2021-07-19 19:19] LABS: Benzodiazepines Screen,Urine Positive ng/ml (<200)
[2021-07-19 19:20] LABS: Cannabinoid Screen,Urine Negative ng/ml (<50)
[2021-07-19 19:21] LABS: Cocaine Screen,Urine Negative ng/ml (<300)
[2021-07-19 19:22] LABS: Methadone Screen,Urine Negative ng/ml (<300)
[2021-07-19 19:23] LABS: Opiate Screen,Urine Negative ng/ml (<300); Phencyclidine Screen,Urine Negative ng/ml (<25)
== END ==
PROVIDERS: Visit Provider Clinical Nurse Specialist Family Health
DX: M51.16 Intervertebral disc disorders with radiculopathy, lumbar region (principal); Z79.891 Long term (current) use of opiate analgesic; Z45.1 Encounter for adjustment and management of infusion pump
CPT/HCPCS: 62370; 80305

== ENCOUNTER 2021-08-09 13:42 | Day surgery (SDC) | payer MEDICARE, OTHER, SELFPAY ==
[2021-08-09 13:43] VITALS: BP 157/73; PULSE 78; RESP 18; TEMP 36.3; O2SAT 98; BMI 24.0
[2021-08-09 13:58] VITALS: BP 143/80; PULSE 75; RESP 18; O2SAT 97
[2021-08-09 14:00] VITALS: BP 143/80; PULSE 79; RESP 18; O2SAT 97
--- NOTE | 2021-08-09 14:05 | P.PCN_ITS ---
- Procedure Date: 08/09/21 Time: 14:05 Anesthesiologist:: Gale Parker APRN Complications:: None Pre-procedure Diagnosis:: Degenerative disc disease of the lumbar spine with lumbar radiculopathy symptoms Post-procedure Diagnosis:: Same Indications for Procedure:: Patient is a pleasant 71-year-old male who presents today for intrathecal pain pump [refill] [and reprogram]. The patient is being treated for degenerative disc disease of the lumbar spine with lumbar radiculopathy symptoms. He is currently being managed with bupivacaine 15 mg/mL at a rate of 12 mg/day. Patient is also being managed with diazepam 5 mg twice a day and oxycodone 5 mg 12 times a day. Patient denies any side effects from these medication. Patient denies any changes to the location and type of pain. Patient rates pain a 6 out of 10. Drug screen is appropriate. [facility] [id number] has been reviewed with a morphine equivalent of 90. Drug screens have been evaluated and appropriate. Physical exam General: Alert and oriented x3, no acute distress, pleasant and cooperative, [on room air] Lungs: Respirations even and unlabored, symmetrical chest expansion Eyes: PERRL Musculoskeletal: Flexion and extension of lumbar [spine] somewhat guarded secondary to pain, [antalgic gait noted] Neurological: Speech clear, no gross sensory deficit Procedure Details:: Informed consent was obtained and the risk and benefits of the procedure were explained to the patient. The patient was taken to the procedure room where noninvasive monitoring was placed including noninvasive blood pressure cuff and pulse oximeter. Patient's pump was interrogated. The area over the pump was cleansed with chlorhexidine as a cleansing solution. In sterile fashion the pump was accessed with a 22-gauge needle. Approximately 3 mls of the pump solution was removed and discarded appropriately. The pump was then refilled with 20 mL's of bupivacaine 20 mg/mL. The needle was withdrawn and a bandage was placed over the puncture site. The infusion rate was reprogrammed at bupivacaine 12 mg/day. The patient tolerated well with no complication. Plan and Disposition:: We will see the patient back in the clinic at the next intrathecal refill. Patient has been instructed to contact the clinic with any concerns before the next appointment. Dr. Santana has reviewed this note and agrees with this plan of care. This note was dictated using voice recognition software and make contain errors or omissions.
[2021-08-09 14:14] VITALS: BP 159/75; PULSE 77; RESP 20; O2SAT 97
== END 2021-08-09 14:15 | disposition home or self-care (01) ==
LOC: SC.PAINP 13:42
PROVIDERS: Visit Provider Clinical Nurse Specialist Family Health
DX: M51.16 Intervertebral disc disorders with radiculopathy, lumbar region (principal); Z45.1 Encounter for adjustment and management of infusion pump; I10 Essential (primary) hypertension; K21.9 Gastro-esophageal reflux disease without esophagitis; F41.9 Anxiety disorder, unspecified; F32.A Depression, unspecified
CPT/HCPCS: 95991

== ENCOUNTER 2021-08-30 13:58 | Day surgery (SDC) | payer MEDICARE, OTHER, SELFPAY ==
[2021-08-30 14:01] VITALS: BP 164/74; PULSE 78; PULSE 79; RESP 18; O2SAT 98; O2SAT 99
[2021-08-30 14:15] VITALS: BP 182/80; PULSE 77; RESP 20; TEMP 36.2; O2SAT 98; BMI 25.5
--- NOTE | 2021-08-30 14:29 | HMH.PMPROC ---
- Procedure Date: 08/30/21 Time: 14:30 Anesthesiologist:: Gale Parker APRN Complications:: None Pre-procedure Diagnosis:: Degenerative disc disease lumbar spine with lumbar radiculopathy symptoms Post-procedure Diagnosis:: Same Indications for Procedure:: Patient is a pleasant 71-year-old male who presents today for intrathecal pain pump [refill] [and reprogram]. The patient is being treated for degenerative disc disease of the lumbar spine with lumbar radiculopathy symptoms. Patient is currently being treated with bupivacaine 20 mg/mL at a rate of 12 mg/day. Patient denies any side effects from this medication. Patient denies any change to location type of pain. Patient rates pain a [8] out of 10. Drug screen is appropriate. Sharif [id number] with a morphine equivalent of 90. Patient's last drug screen was negative for any opiates even though he is taking oxycodone 10mg. When the nurse did a pill count, the patient is short on his medication. Physical exam General: Alert and oriented x3, no acute distress, pleasant and cooperative, [on room air] Lungs: Respirations even and unlabored, symmetrical chest expansion Eyes: PERRL Musculoskeletal: Flexion and extension of lumbar [spine] somewhat guarded secondary to pain, [antalgic gait noted] Neurological: Speech clear, no gross sensory deficit Procedure Details:: Informed consent was obtained and the risk and benefits of the procedure were explained to the patient. The patient was taken to the procedure room where noninvasive monitoring was placed including noninvasive blood pressure cuff and pulse oximeter. Patient's pump was interrogated. The area over the pump was cleansed with chlorhexidine as a cleansing solution. In sterile fashion the pump was accessed with a 22-gauge needle. Approximately 7 mls of the pump solution was removed and discarded appropriately. The pump was then refilled with 20 mL's of bupivacaine 20 mg/mL. The needle was withdrawn and a bandage was placed over the puncture site. The infusion rate was reprogrammed and increased to bupivacaine 12.25 mg/day. The patient tolerated well with no complication. Plan and Disposition:: Due to the patient's last drug screen and his pill count being short, patient will follow up with Dr. Santana. Patient has been instructed to contact the clinic with any concerns before the next appointment. Dr. Santana has reviewed this note and agrees with this plan of care. This note was dictated using voice recognition software and make contain errors or omissions.
[2021-08-30 14:42] VITALS: BP 160/85; PULSE 78; RESP 18; O2SAT 98
== END 2021-08-30 14:34 | disposition home or self-care (01) ==
LOC: SC.PAINP 14:00
PROVIDERS: Visit Provider Clinical Nurse Specialist Family Health
DX: M51.16 Intervertebral disc disorders with radiculopathy, lumbar region (principal); Z45.1 Encounter for adjustment and management of infusion pump; E78.5 Hyperlipidemia, unspecified; I10 Essential (primary) hypertension; M19.90 Unspecified osteoarthritis, unspecified site; Z72.0 Tobacco use
CPT/HCPCS: 62370

== ENCOUNTER 2021-09-17 10:26 | Day surgery (SDC) | payer MEDICARE, OTHER, SELFPAY ==
[2021-09-17 10:49] VITALS: BP 177/88; PULSE 89; RESP 20; TEMP 36.2; O2SAT 99; BMI 24.3
[2021-09-17 11:19] VITALS: BP 140/98; PULSE 87; RESP 20; O2SAT 98
[2021-09-17 11:21] VITALS: BP 142/98; PULSE 88; RESP 18; O2SAT 98
--- NOTE | 2021-09-17 11:28 | HMH.PMPROC ---
- Procedure Date: 09/17/21 Time: 11:28 Anesthesiologist:: Reji Santana MD Complications:: None Pre-procedure Diagnosis:: Degenerative disc disease of lumbar spine with lumbar radiculopathy symptoms Post-procedure Diagnosis:: Same Indications for Procedure:: This patient is a pleasant 71-year-old white male who we are treating for low back pain with lumbar radiculopathy symptoms and postlaminectomy syndrome lumbar spine. He has an intrathecal bupivacaine pain pump in place. He is doing well with his pump. He has had some issues with hypertension recently. He is on antihypertensives. I told him to follow-up with his primary care doctor. He is currently going at 12.25 mg/day of intrathecal bupivacaine. We will continue him at this dose. He is also on oxycodone 10 mg 6 times a day and diazepam 5 mg twice a day. He is doing well with his medication. We will continue to follow his urine drug screens and compliance. Sharif and drug screen are all appropriate Sharif [id number]. Procedure Details:: Informed consent was obtained and the risks and benefits of the procedure was explained to the patient. The patient was taken to the procedure room. The pump was interrogated. The area over the pump was prepped using ChloraPrep. The pump was accessed with a 22-gauge needle. Approximately 9 mL's of the intrathecal solution was withdrawn and discarded. The pump was then refilled with 20 mL's of intrathecal bupivacaine 20 mg/mL. The pump was interrogated and the infusion was continued at 12.25 mg/day. The patient tolerated the procedure well with no complication. Plan and Disposition:: We will follow-up with him at his next prescription refill and pump refill. His next pump refill will be on or before October 12, 2021. We will try to schedule this in our [place] office.
[2021-09-17 11:34] VITALS: BP 144/71; PULSE 80; RESP 20; O2SAT 99
== END 2021-09-17 11:35 | disposition home or self-care (01) ==
LOC: SC.PAINP 10:29
PROVIDERS: Visit Provider Anesthesiology
DX: M51.16 Intervertebral disc disorders with radiculopathy, lumbar region (principal); M96.1 Postlaminectomy syndrome, not elsewhere classified; Z45.1 Encounter for adjustment and management of infusion pump; E78.5 Hyperlipidemia, unspecified; I10 Essential (primary) hypertension; Z72.0 Tobacco use; K21.9 Gastro-esophageal reflux disease without esophagitis; M19.90 Unspecified osteoarthritis, unspecified site; Z88.6 Allergy status to analgesic agent; Z88.8 Allergy status to other drugs, medicaments and biological substances
CPT/HCPCS: 95991

== ENCOUNTER 2021-10-04 14:54 | Day surgery (SDC) | payer MEDICARE, OTHER, SELFPAY ==
[2021-10-04 15:08] VITALS: BP 149/69; PULSE 68; RESP 20; TEMP 36.3; O2SAT 99; BMI 25.1
--- NOTE | 2021-10-04 15:19 | P.PCN_ITS ---
- Procedure Date: 10/04/21 Time: 15:19 Anesthesiologist:: Gale Parker APRN Complications:: None Pre-procedure Diagnosis:: Degenerative disc disease lumbar spine with lumbar radiculopathy symptoms Post-procedure Diagnosis:: Same Indications for Procedure:: Patient is a pleasant 71-year-old white who presents today for intrathecal pain pump [refill] [and reprogram]. The patient is being treated for low back pain with lumbar radiculopathy symptoms. He is doing well at this time with his intrathecal therapy. He is currently on bupivacaine at 12.25 mg/day. He denies any side effects. Patient rates pain a 4 or 5 out of 10. Drug screen is appropriate. Sharif [ ] has been reviewed and is appropriate. Physical exam General: Alert and oriented x3, no acute distress, pleasant and cooperative, [on room air] Lungs: Respirations even and unlabored, symmetrical chest expansion Eyes: PERRL Musculoskeletal: Flexion and extension of lumbar [spine] somewhat guarded secon radha to pain, [antalgic gait noted] Neurological: Speech clear, no gross sensory deficit Procedure Details:: Informed consent was obtained and the risk and benefits of the procedure were explained to the patient. The patient was taken to the procedure room where noninvasive monitoring was placed including noninvasive blood pressure cuff and pulse oximeter. Patient's pump was interrogated. The area over the pump was cleansed with chlorhexidine as a cleansing solution. In sterile fashion the pump was accessed with a 22-gauge needle. Approximately 9 mls of the pump solution was removed and discarded appropriately. The pump was then refilled with 20 mL's of bupivacaine 20 mg/mL. The needle was withdrawn and a bandage was placed over the puncture site. The infusion rate was reprogrammed at bupivacaine at 12.25 mg daily. The patient tolerated well with no complication. Plan and Disposition:: Patient is having to come to the clinic every 2 weeks. We will increase his concentration to bupivacaine 25 mg/mL. We will see the patient back in the clinic at the next intrathecal refill. Patient has been instructed to contact the clinic with any concerns before the next appointment. Dr. Santana has reviewed this note and agrees with this plan of care. This note was dictated using voice recognition software and make contain errors or omissions. Risks and benefits of the medication have been explained in detail to the patient. The patient does understand the risk of dependence on the medication when given over a prolonged period. Patient has been advised of risks of oversedation with the prescribed medication. Narcan has been offered to the paitent in the event of oversedation. Patient has been advised that a family member should also be educated regarding administration of Narcan. The patient has been advised to consult with his/her primary care provider and pharmacist regarding drug-drug interaction of medications currently prescribed. SHARIF report has been obtained and reviewed prior to prescription and found to be appropriate. Opioid contract was reviewed and signed by the patient, and that they have agreed to all of the terms set forth by our compliance program. Patient has been instructed to contact the clinic with any concerns before the next appointment. Dr. Santana has reviewed this note and agrees with this plan of care. This note was dictated using voice recognition software and make contain errors or omissions.
[2021-10-04 15:24] VITALS: BP 136/80; PULSE 65; RESP 20; O2SAT 96
[2021-10-04 15:28] VITALS: BP 148/70; PULSE 70; RESP 20; O2SAT 97
[2021-10-04 15:35] VITALS: BP 151/68; PULSE 77; RESP 20; O2SAT 98
[2021-10-04 18:47] LABS: Amphetamine/Metha Screen,Urine Negative ng/ml (<1000); Barbiturates Screen,Urine Negative ng/ml (<200)
[2021-10-04 18:48] LABS: Benzodiazepines Screen,Urine Positive ng/ml (<200); Cannabinoid Screen,Urine Negative ng/ml (<50)
[2021-10-04 18:49] LABS: Cocaine Screen,Urine Negative ng/ml (<300)
[2021-10-04 18:50] LABS: Methadone Screen,Urine Negative ng/ml (<300); Opiate Screen,Urine Negative ng/ml (<300)
[2021-10-04 18:51] LABS: Phencyclidine Screen,Urine Negative ng/ml (<25)
[2021-10-13 16:23] LABS: Opiates Negative (Cutoff=100); Oxycodone (GC/MS) 348 ng/mL (Cutoff=100); Oxymorphone (GC/MS) 541 ng/mL (Cutoff=100)
== END 2021-10-04 15:35 | disposition home or self-care (01) ==
LOC: SC.PAINP 14:55
PROVIDERS: Visit Provider Clinical Nurse Specialist Family Health
DX: M51.16 Intervertebral disc disorders with radiculopathy, lumbar region (principal); Z45.1 Encounter for adjustment and management of infusion pump
CPT/HCPCS: 36415; 80305; 80361; 80365; 95991; G0480

== ENCOUNTER 2021-10-29 13:19 | Day surgery (SDC) | payer MEDICARE, OTHER, SELFPAY ==
[2021-10-29 13:25] VITALS: BP 140/62; BP 141/65; BP 143/84; PULSE 68; PULSE 69; PULSE 77; RESP 17; RESP 18; TEMP 36.3; O2SAT 98; O2SAT 99; BMI 24.3
[2021-10-29 13:49] VITALS: BP 154/58; PULSE 67; O2SAT 99
--- NOTE | 2021-10-29 14:14 | HMH.PMPROC ---
- Procedure Date: 10/29/21 Time: 14:14 Anesthesiologist:: Reji Santana MD Complications:: None Pre-procedure Diagnosis:: Degenerative disc disease of lumbar spine with lumbar radiculopathy symptoms Post-procedure Diagnosis:: Same Indications for Procedure:: Patient is a pleasant 71-year-old white male who we are treating for low back pain with lumbar radiculopathy symptoms. He does have an intrathecal bupivacaine pain pump in place going at 12.25 mg/day. He is doing well with his pain pump. Sharif and drug screen are all appropriate. He is also on oxycodone orally. We will refill his pump and continue him at 12.25 mg/day. He does have an antalgic gait. Motor strength of the lower extremities is 5/5. There is no gross sensory deficit. Procedure Details:: Informed consent was obtained and the risks and benefits of the procedure was explained to the patient. The patient was taken to the procedure room. The pump was interrogated. The area over the pump was prepped using ChloraPrep. The pump was accessed with a 22-gauge needle. Approximately 5 mL's of the intrathecal solution was withdrawn and discarded. The pump was then refilled with 20 mL's of intrathecal bupivacaine 20 mg/mL. The pump was interrogated and the infusion was continued at 12.25 mg/day. PTC continue to 0.25 mg up to 6 times a day. The patient tolerated the procedure well with no complication. Plan and Disposition:: We will follow-up with him at his next pump refill. If he has any problems or questions he is to call us back in the pain clinic. We will continue to meet bupivacaine 20 mg/mL as he is currently doing well at this dose.
== END 2021-10-29 13:49 | disposition home or self-care (01) ==
LOC: SC.PAINP 13:20
PROVIDERS: Visit Provider Anesthesiology
DX: M51.16 Intervertebral disc disorders with radiculopathy, lumbar region (principal); Z45.1 Encounter for adjustment and management of infusion pump; E78.5 Hyperlipidemia, unspecified; I10 Essential (primary) hypertension; E11.9 Type 2 diabetes mellitus without complications; Z72.0 Tobacco use
CPT/HCPCS: 95991

== ENCOUNTER 2021-11-22 14:59 | Day surgery (SDC) | payer MEDICARE, OTHER, SELFPAY ==
--- NOTE | 2021-11-22 15:21 | HMH.PMPROC ---
- Procedure Date: 11/22/21 Time: 15:21 Anesthesiologist:: DENNIS Salazar Complications:: None Pre-procedure Diagnosis:: Degenerative disc disease of the lumbar spine with lumbar radiculopathy symptoms Post-procedure Diagnosis:: Same Indications for Procedure:: Patient is a pleasant 71-year-old male who presents today for intrathecal pain pump [refill] [and reprogram]. The patient is being treated for degenerative disc disease of the lumbar spine with lumbar radiculopathy symptoms. Patient is being managed with bupivacaine 20 mg/mL at a rate of 12.25 mg/day. Patient is also being managed with diazepam 5 mg twice a day and oxycodone 10 mg 6 times a day. Patient denies any side effects from his medications. Patient is complaining of worsening bilateral feet pain. Patient is wanting adjustment today. Patient rates pain a 7 out of 10. Drug screen is appropriate. Sharif [id number] with an active morphine equivalent of 90 has been reviewed and is appropriate. Physical exam General: Alert and oriented x3, no acute distress, pleasant and cooperative, [on room air] Lungs: Respirations even and unlabored, symmetrical chest expansion Eyes: PERRL Musculoskeletal: Flexion and extension of lumbar [spine] somewhat guarded secondary to pain, [antalgic gait noted] Neurological: Speech clear, no gross sensory deficit Procedure Details:: Informed consent was obtained and the risk and benefits of the procedure were explained to the patient. The patient was taken to the procedure room where noninvasive monitoring was placed including noninvasive blood pressure cuff and pulse oximeter. Patient's pump was interrogated. The area over the pump was cleansed with chlorhexidine as a cleansing solution. In sterile fashion the pump was accessed with a 22-gauge needle. Approximately 5 mls of the pump solution was removed and discarded appropriately. The pump was then refilled with 20 mL's of bupivacaine 20 mg/mL. The needle was withdrawn and a bandage was placed over the puncture site. The infusion rate was reprogrammed and was increased to bupivacaine 12.50 mg/day. The patient tolerated well with no complication. Plan and Disposition:: Patient has been advised of risks of oversedation with the prescribed medication. Narcan has been offered to the patient in the event of oversedation. Patient has been advised that a family member should also be educated regarding administration of Narcan. We will see the patient back in the clinic at the next intrathecal refill. Patient has been instructed to contact the clinic with any concerns before the next appointment. Dr. Santana has reviewed this note and agrees with this plan of care. This note was dictated using voice recognition software and make contain errors or omissions.
[2021-11-22 15:25] VITALS: BP 170/80; PULSE 71; RESP 20; TEMP 36.6; O2SAT 100; BMI 22.4
[2021-11-22 15:30] VITALS: BP 190/88; PULSE 76; RESP 20; O2SAT 97
[2021-11-22 15:35] VITALS: BP 190/88; PULSE 76; RESP 20; O2SAT 97
[2021-11-22 15:45] VITALS: BP 176/99; PULSE 78; RESP 20; O2SAT 99
== END 2021-11-22 15:45 | disposition home or self-care (01) ==
LOC: SC.PAINP 15:00
PROVIDERS: PCP Internal Medicine; Visit Provider Student in an Organized Health Care Education/Training Program
DX: M51.16 Intervertebral disc disorders with radiculopathy, lumbar region (principal); Z45.1 Encounter for adjustment and management of infusion pump; I25.10 Atherosclerotic heart disease of native coronary artery without angina pectoris; E78.5 Hyperlipidemia, unspecified; I10 Essential (primary) hypertension; N40.0 Benign prostatic hyperplasia without lower urinary tract symptoms; K21.9 Gastro-esophageal reflux disease without esophagitis; F41.9 Anxiety disorder, unspecified; F32.A Depression, unspecified; G43.909 Migraine, unspecified, not intractable, without status migrainosus; Z98.84 Bariatric surgery status; Z88.6 Allergy status to analgesic agent
CPT/HCPCS: 62370

== ENCOUNTER 2021-12-13 14:51 | Day surgery (SDC) | payer MEDICARE, OTHER, SELFPAY ==
[2021-12-13 15:15] VITALS: BP 164/77; PULSE 73; RESP 20; TEMP 36.3; O2SAT 97; BMI 22.9
[2021-12-13 15:25] VITALS: BP 164/77; PULSE 74; RESP 20; O2SAT 97
[2021-12-13 15:30] VITALS: BP 190/73; PULSE 75; RESP 20; O2SAT 96
[2021-12-13 15:39] VITALS: BP 190/73; PULSE 74; RESP 20; O2SAT 94
--- NOTE | 2021-12-13 15:46 | HMH.PMPROC ---
- Procedure Date: 12/13/21 Time: 15:46 Anesthesiologist:: DENNIS Salazar Complications:: None Pre-procedure Diagnosis:: Degenerative disc disease of lumbar spine with lumbar radiculopathy symptoms Post-procedure Diagnosis:: Same Indications for Procedure:: Patient is a pleasant 71-year-old male who presents today for intrathecal pain pump [refill] [and reprogram]. The patient is being treated for degenerative disc disease lumbar spine with lumbar radiculopathy symptoms. Patient is currently being treated with bupivacaine 20 mg/mL at a rate of 12.5 mg/day. Denies any side effects from this medication. Denies any change to location type of pain. Patient rates pain a 6 out of 10. Drug screen is appropriate. Sharif [id number] with an active morphine equivalent of 0 has been reviewed and is appropriate. Patient is also being managed with oxycodone 10 mg 6 times a day and diazepam 5 mg twice a day. Patient needs refills on his medications. Physical exam General: Alert and oriented x3, no acute distress, pleasant and cooperative, [on room air] Lungs: Respirations even and unlabored, symmetrical chest expansion Eyes: PERRL Musculoskeletal: Flexion and extension of lumbar [spine] somewhat guarded secondary to pain, [antalgic gait noted] Neurological: Speech clear, no gross sensory deficit Procedure Details:: Informed consent was obtained and the risk and benefits of the procedure were explained to the patient. The patient was taken to the procedure room where noninvasive monitoring was placed including noninvasive blood pressure cuff and pulse oximeter. Patient's pump was interrogated. The area over the pump was cleansed with chlorhexidine as a cleansing solution. In sterile fashion the pump was accessed with a 22-gauge needle. Approximately 7 mls of the pump solution was removed and discarded appropriately. The pump was then refilled with 20 mL's of bupivacaine 20 mg/mL. The needle was withdrawn and a bandage was placed over the puncture site. The infusion rate was reprogrammed and continued with bupivacaine 12.5 mg/day. The patient tolerated well with no complication. Plan and Disposition:: We will continue the patient's oxycodone 10 mg 6 times a day and diazepam 5 mg twice a day. We will provide the patient with 1 month worth of refill. We will see the patient back in the clinic at the next intrathecal refill. Patient has been instructed to contact the clinic with any concerns before the next appointment. Dr. Santana has reviewed this note and agrees with this plan of care. This note was dictated using voice recognition software and make contain errors or omissions.
== END 2021-12-13 15:40 | disposition home or self-care (01) ==
LOC: SC.PAINP 14:52
PROVIDERS: PCP Internal Medicine; Visit Provider Student in an Organized Health Care Education/Training Program
DX: M51.16 Intervertebral disc disorders with radiculopathy, lumbar region (principal); Z45.1 Encounter for adjustment and management of infusion pump
CPT/HCPCS: 95991

== ENCOUNTER 2022-01-03 14:55 | Day surgery (SDC) | payer MEDICARE, OTHER, SELFPAY ==
[2022-01-03 15:01] VITALS: BP 138/67; BP 144/77; PULSE 71; PULSE 75; RESP 18; RESP 20; TEMP 36.3; O2SAT 98; BMI 24.3
[2022-01-03 15:15] VITALS: BP 154/73; PULSE 79; RESP 20; O2SAT 96
--- NOTE | 2022-01-03 15:15 | HMH.PMPROC ---
- Procedure Date: 01/03/22 Time: 15:15 Anesthesiologist:: DENNIS Salazar Complications:: None Pre-procedure Diagnosis:: Degenerative disc disease of lumbar spine with lumbar radiculopathy symptoms, postlaminectomy syndrome Post-procedure Diagnosis:: Same Indications for Procedure:: Patient is a pleasant 71-year-old male who presents today for intrathecal pain pump [refill] [and reprogram]. The patient is being treated for degenerative disc disease of lumbar spine with lumbar radiculopathy symptoms, postlaminectomy syndrome. Patient is currently being treated with bupivacaine 20 mg/mL at a rate of 12.5 mg/day. Denies any side effects from this medication. Denies any change to location type of pain. Patient is also being managed with oxycodone 10 mg 6 times a day and diazepam 5 mg twice a day. Patient rates pain a 8 out of 10. Drug screen is appropriate. Sharif [id number] with an active morphine equivalent of 90 has been reviewed and is appropriate. Patient is unable to lay down on his stomach. We were not able to use fluoroscopy to refill his pump. Physical exam General: Alert and oriented x3, no acute distress, pleasant and cooperative, [on room air] Lungs: Respirations even and unlabored, symmetrical chest expansion Eyes: PERRL Musculoskeletal: Flexion and extension of lumbar [spine] somewhat guarded secondary to pain, [antalgic gait noted] Neurological: Speech clear, no gross sensory deficit Procedure Details:: Informed consent was obtained and the risk and benefits of the procedure were explained to the patient. The patient was taken to the procedure room where noninvasive monitoring was placed including noninvasive blood pressure cuff and pulse oximeter. Patient's pump was interrogated. The area over the pump was cleansed with chlorhexidine as a cleansing solution. In sterile fashion the pump was accessed with a 22-gauge needle. Approximately 6 mls of the pump solution was removed and discarded appropriately. The pump was then refilled with 20 mL's of bupivacaine 20 mg/mL. The needle was withdrawn and a bandage was placed over the puncture site. The infusion rate was reprogrammed and continued at bupivacaine 12.5 mg/day. The patient tolerated well with no complication. Plan and Disposition:: We will see the patient back in the clinic at the next intrathecal refill. Patient has been instructed to contact the clinic with any concerns before the next appointment. Dr. Santana has reviewed this note and agrees with this plan of care. This note was dictated using voice recognition software and make contain errors or omissions.
== END 2022-01-03 15:16 | disposition home or self-care (01) ==
LOC: SC.PAINP 14:55
PROVIDERS: PCP Internal Medicine; Visit Provider Student in an Organized Health Care Education/Training Program
DX: M51.16 Intervertebral disc disorders with radiculopathy, lumbar region (principal); M96.1 Postlaminectomy syndrome, not elsewhere classified; Z45.1 Encounter for adjustment and management of infusion pump; I10 Essential (primary) hypertension; M19.90 Unspecified osteoarthritis, unspecified site; Z98.84 Bariatric surgery status; Z88.6 Allergy status to analgesic agent; Z88.8 Allergy status to other drugs, medicaments and biological substances
CPT/HCPCS: 95991

== ENCOUNTER → 2022-01-21 14:01 | Day surgery (SDC) | payer MEDICARE, OTHER, SELFPAY ==
[2022-01-21 14:26] VITALS: BP 170/70; PULSE 79; RESP 20; TEMP 36.3; O2SAT 96; BMI 24.5
[2022-01-21 14:38] VITALS: BP 161/75; PULSE 69; RESP 18; O2SAT 96
[2022-01-21 14:41] VITALS: BP 161/75; PULSE 70; RESP 18; O2SAT 96
--- NOTE | 2022-01-21 14:44 | HMH.PMPROC ---
- Procedure Date: 01/21/22 Time: 14:44 Anesthesiologist:: Reji Santana MD Complications:: None Pre-procedure Diagnosis:: Degenerative disc disease of lumbar spine with lumbar radiculopathy symptoms and postlaminectomy syndrome lumbar spine Post-procedure Diagnosis:: Same Indications for Procedure:: This patient is a pleasant 71-year-old white male who we are treating for low back pain with lumbar radiculopathy symptoms and degenerative disc disease of lumbar spine with postlaminectomy syndrome lumbar spine. Currently he is on intrathecal bupivacaine pain pump in place going at 12.5 mg/day. He is doing well at this dose. He is also on oxycodone 10 mg 6 times a day as well as diazepam 5 mg twice a day. He is doing well on this medication regimen. We will refill his pain pump and continue him at 12.5 mg/day of intrathecal bupivacaine 20 mg/mL. Procedure Details:: Informed consent was obtained and the risks and benefits of the procedure was explained to the patient. The patient was taken to the procedure room. The pump was interrogated. The area over the pump was prepped using ChloraPrep. The pump was accessed with a 22-gauge needle. Approximately 8 mL's of the intrathecal solution was withdrawn and discarded. The pump was then refilled with 20 mL's of intrathecal bupivacaine 20 mg/mL. The pump was interrogated and the infusion was continued at 12.5 mg/day. The patient tolerated the procedure well with no complication. Plan and Disposition:: We will see him back in the pain clinic at his next refill. If he has any problems questions she is to call us back in the pain clinic.
[2022-01-21 14:49] VITALS: BP 151/70; PULSE 80; RESP 18; O2SAT 98
== END ==
PROVIDERS: PCP Internal Medicine; Visit Provider Anesthesiology
DX: M51.16 Intervertebral disc disorders with radiculopathy, lumbar region (principal); M96.1 Postlaminectomy syndrome, not elsewhere classified; Z45.1 Encounter for adjustment and management of infusion pump; Z88.6 Allergy status to analgesic agent; Z88.8 Allergy status to other drugs, medicaments and biological substances
CPT/HCPCS: 95991

== ENCOUNTER 2022-02-11 12:57 | Day surgery (SDC) | payer MEDICARE, OTHER, SELFPAY ==
[2022-02-11 13:10] VITALS: BP 148/77; PULSE 67; RESP 18; TEMP 36.3; O2SAT 98; BMI 24.3
[2022-02-11 13:17] VITALS: BP 150/91; PULSE 72; RESP 20
--- NOTE | 2022-02-11 13:24 | HMH.PMPROC ---
- Procedure Date: 02/11/22 Time: 13:24 Anesthesiologist:: Remigio Cintron CRNA Complications:: None Pre-procedure Diagnosis:: Degenerative disc disease lumbar spine multilevels. Lumbar radiculopathy symptoms. Lumbar postlaminectomy syndrome. Post-procedure Diagnosis:: Same Indications for Procedure:: Very pleasant 71-year-old white male that comes our clinic today for intrathecal pain pump refill. Patient currently has bupivacaine 20 mg/mL running at 12-1/2 mg/day. He is asking for increase due to low back pain that he describes as dull and achy. He rates the pain 7/10. We will increase him to 50 mg/day. Procedure Details:: Details of the procedure were explained to the patient. The patient was taken the procedure room placed in the sitting position. There area over the pump was cleansed using chlorhexidine as a cleansing solution. The pump was then accessed using a 22-gauge needle. 6.5 cc of solution was removed. At this time the pump was then filled 20 cc of bupivacaine 20 mg/mL. Patient tolerated procedure without difficulty. There are no complications. As stated above the pump was then interrogated and increased to 15 mg/day. Plan and Disposition:: Patient was discharged without incident.
[2022-02-11 13:30] VITALS: BP 146/80; PULSE 63; RESP 18; O2SAT 99
== END 2022-02-11 13:31 | disposition home or self-care (01) ==
LOC: SC.PAINP 12:58
PROVIDERS: PCP Internal Medicine; Visit Provider Nurse Anesthetist, Certified Registered
DX: M51.16 Intervertebral disc disorders with radiculopathy, lumbar region (principal); M96.1 Postlaminectomy syndrome, not elsewhere classified
CPT/HCPCS: 62370

== ENCOUNTER 2022-02-25 08:57 | Day surgery (SDC) | payer MEDICARE, OTHER, SELFPAY ==
[2022-02-25 09:02] VITALS: BP 153/75; PULSE 86; RESP 18; TEMP 36.4; O2SAT 98; BMI 23.3
[2022-02-25 09:36] VITALS: BP 137/58; PULSE 90; RESP 18
[2022-02-25 09:39] VITALS: BP 140/59; PULSE 90; RESP 18
--- NOTE | 2022-02-25 09:51 | HMH.PMPROC ---
- Procedure Date: 02/25/22 Time: 09:51 Anesthesiologist:: Reji Santana MD Complications:: None Pre-procedure Diagnosis:: Degenerative disc disease of lumbar spine multilevel with lumbar radiculopathy symptoms and postlaminectomy syndrome lumbar spine Post-procedure Diagnosis:: Same Indications for Procedure:: This patient is a pleasant 71-year-old white male who we are treating for low back pain with lumbar radiculopathy symptoms with postlaminectomy syndrome lumbar spine. He is doing well with his intrathecal bupivacaine pain pump however he does note some numbness occasionally when he sits for long periods of time or lays down for long periods of time. We will decrease his intrathecal bupivacaine dose. We will refill him with an increased concentration of bupivacaine 25 mg per mall to extend his refill interval. His Sharif and drug screen are all appropriate. He does have an antalgic gait. Motor strength of the lower extremities is 5/5. There is no gross sensory deficit. Procedure Details:: Informed consent was obtained and the risks and benefits of the procedure was explained to the patient. The patient was taken to the procedure room. The pump was interrogated. The area over the pump was prepped using ChloraPrep. The pump was accessed with a 22-gauge needle. Approximately 9 mL's of the intrathecal solution was withdrawn and discarded. The pump was then refilled with 20 mL's of intrathecal bupivacaine 25 mg/mL. The pump was interrogated and the infusion was decreased to 12 mg/day. PTC remained at 0.25 mg up to 6 times a day. The patient tolerated the procedure well with no complication. Plan and Disposition:: We will follow-up with this patient at his next pump refill. This will be on or before March 28, 2022. Overall he is doing well with his pump. Hopefully this decrease will help with numbness after sitting and lying for long periods of time.
[2022-02-25 09:52] VITALS: BP 137/66; PULSE 84; RESP 18; O2SAT 99
== END 2022-02-25 09:53 | disposition home or self-care (01) ==
LOC: SC.PAINP 08:58
PROVIDERS: PCP Internal Medicine; Visit Provider Anesthesiology
DX: M51.16 Intervertebral disc disorders with radiculopathy, lumbar region (principal); M96.1 Postlaminectomy syndrome, not elsewhere classified
CPT/HCPCS: 62370

== ENCOUNTER 2022-04-01 10:55 | Day surgery (SDC) | payer MEDICARE, OTHER, SELFPAY ==
[2022-04-01 11:35] VITALS: BP 109/58; PULSE 81; RESP 20; TEMP 36.4; O2SAT 96; BMI 23.8
[2022-04-01 11:46] VITALS: BP 114/65; PULSE 77; RESP 20
[2022-04-01 12:05] VITALS: BP 134/58; PULSE 71; RESP 20; O2SAT 97
--- NOTE | 2022-04-01 13:08 | HMH.PMPROC ---
- Procedure Date: 04/01/22 Time: 13:08 Anesthesiologist:: Reji Santana MD Complications:: None Pre-procedure Diagnosis:: Degenerative disc disease of lumbar spine multilevel with lumbar radiculopathy symptoms and postlaminectomy syndrome lumbar spine with intrathecal bupivacaine pain pump in place Post-procedure Diagnosis:: Same Indications for Procedure:: This patient is a pleasant 71-year-old white male who we are treating for low back pain with lumbar radiculopathy symptoms and postlaminectomy syndrome lumbar spine. He does have an intrathecal bupivacaine pain pump in place. He is doing well with his pump. Sharif and drug screen are all appropriate. He does have an antalgic gait. Motor strength of the lower extremities is 5/5. There is no gross sensory deficit. We will refill his pump today and continue him at 12 mg/day. Procedure Details:: Informed consent was obtained and the risks and benefits of the procedure was explained to the patient. The patient was taken to the procedure room. The pump was interrogated. The area over the pump was prepped using ChloraPrep. The pump was accessed with a 22-gauge needle. Approximately 3 mL's of the intrathecal solution was withdrawn and discarded. The pump was then refilled with 20 mL's of intrathecal bupivacaine 25 mg/mL. The pump was interrogated and the infusion was continued at 12 mg/day. The patient tolerated the procedure well with no complication. Plan and Disposition:: We will follow-up with him at his next pump refill. This will be on or before May 01, 2022.
== END 2022-04-01 12:05 | disposition home or self-care (01) ==
LOC: SC.PAINP 10:57
PROVIDERS: PCP Internal Medicine; Visit Provider Anesthesiology
DX: M51.16 Intervertebral disc disorders with radiculopathy, lumbar region (principal); M96.1 Postlaminectomy syndrome, not elsewhere classified
CPT/HCPCS: 95991

== ENCOUNTER 2022-04-26 11:02 | Day surgery (SDC) | payer MEDICARE, OTHER, SELFPAY ==
[2022-04-26 11:16] VITALS: BP 139/83; PULSE 75; RESP 20; TEMP 36.3; O2SAT 97; BMI 24.0
[2022-04-26 11:50] VITALS: BP 133/68; PULSE 79; RESP 17; O2SAT 95
[2022-04-26 11:51] VITALS: BP 133/68; PULSE 75; RESP 17; O2SAT 96
--- NOTE | 2022-04-26 12:00 | EXP.PAIN.PRO ---
Procedure Date: 04/26/22 Time: 11:55 Anesthesiologist:: Remigio Cintron CRNA Complications:: None Pre-procedure Diagnosis:: Degenerative disc disease of lumbar spine multilevel with lumbar radiculopathy symptoms, postlaminectomy syndrome lumbar spine Post-procedure Diagnosis:: Same Indications for Procedure:: Patient is a pleasant 71-year-old male who presents today for intrathecal pain pump refill and reprogram. We are currently treating the patient for degenerative disc disease of lumbar spine multilevels with lumbar radiculopathy symptoms, postlaminectomy syndrome of lumbar spine. Patient is being managed with bupivacaine 25 mg/mL with a daily dose of 12 mg/day. Today he rates his pain a 8 out of 10. His Sharif is [id number]. Its been reviewed and appropriate. Physical exam General: Alert and oriented x3, no acute distress, pleasant and cooperative on room air lungs: Respirations even and unlabored, symmetrical chest expansion Eyes: PERRL Musculoskeletal: Flexion and extension of lumbar spine somewhat guarded secondary to pain, antalgic gait noted neurologic: Speech clear, no gross sensory deficit Procedure Details:: Informed consent was obtained and the risk and benefits of the procedure were explained to the patient. The patient was taken to the procedure room where noninvasive monitoring was placed including noninvasive blood pressure cuff and pulse oximeter. Patient's pump was interrogated. The area over the pump was cleansed with a chlorhexidine as a cleansing solution. In a sterile fashion the pump was accessed using a 22-gauge needle. From the interrogation and the system 7.30mL was expected. Approximately 7.2mL of the pump solution was removed and discarded appropriately. The pump was then refilled with 20 mL of bupivacaine 25 mg/mL. The needle was withdrawn and a bandage was placed over the puncture site. The infusion rate was continued at bupivacaine 25 mg/mL with a daily dose of 12 mg/day. The patient tolerated the procedure well with no complications Plan and Disposition:: We will see the patient back in clinic at the next intrathecal refill. The patient has been instructed to contact the clinic with any concerns before the next appointment. Dr. Santana is reviewed this note and agrees with this plan of care. This note was dictated with voice recognition hardware software and may contain errors or omissions.
[2022-04-26 12:01] VITALS: BP 127/75; PULSE 70; O2SAT 96
== END 2022-04-26 12:00 | disposition home or self-care (01) ==
LOC: SC.PAINP 11:03
PROVIDERS: PCP Internal Medicine; Visit Provider Nurse Anesthetist, Certified Registered
DX: M51.16 Intervertebral disc disorders with radiculopathy, lumbar region (principal); M96.1 Postlaminectomy syndrome, not elsewhere classified
CPT/HCPCS: 95991

== ENCOUNTER 2022-05-24 14:03 | Day surgery (SDC) | payer MEDICARE, OTHER, SELFPAY ==
[2022-05-24 14:13] VITALS: BP 150/73; PULSE 81; RESP 16; O2SAT 96; BMI 24.0
[2022-05-24 14:38] VITALS: BP 151/87; PULSE 84; RESP 18; O2SAT 99
[2022-05-24 14:39] VITALS: BP 151/87; PULSE 84; RESP 18; O2SAT 98
--- NOTE | 2022-05-24 14:54 | P.PCN_ITS ---
Procedure Date: 05/24/22 Time: 14:50 Anesthesiologist:: Remigio Cintron CRNA Complications:: None Pre-procedure Diagnosis:: Degenerative disc disease of lumbar spine multilevel with lumbar radiculopathy symptoms, postlaminectomy syndrome lumbar spine Post-procedure Diagnosis:: Same Indications for Procedure:: Patient is a pleasant 71-year-old male who presents today for intrathecal pain pump refill and reprogram. We are currently treating the patient for degenerative disc disease of lumbar spine multilevel with lumbar radiculopathy symptoms, postlaminectomy syndrome of the lumbar spine. Patient is currently managed with bupivacaine 25 mg/mL with a daily dose of 12 mg/day. Patient d enies any side effects to this medication. He states this medication does help manage his pain. Today he rates his pain a 8 out of 10. Patient states he has increased problems walking unrelated to the pump. He states he has right hip problems including some edema and a knot along that right side. He states this started about 6 months ago and has just worsened over time. It has been a few years since he has been seen by an orthopedic surgeon. He was previously seen for bilateral knee replacements at orthopedics. Patient also states he has trouble walking due to an issue with his big toe on his left foot. He states that he is able to lower/move his toe downward however he is unable to lift it up which causes multiple issues including tripping over things. Patient does use a cane for ambulation. Patient is requesting a increase of his pump medications at today's visit. Physical exam General: Alert and oriented x3, no acute distress, pleasant and cooperative on room air Lungs: Respirations even and unlabored, symmetrical chest expansion Eyes: PERRL Musculoskeletal: Flexion and extension of lumbar spine somewhat guarded secondary to pain, antalgic gait noted Neurologic: Speech clear, no gross sensory deficit Procedure Details:: Informed consent was obtained and risk and benefits of the procedure were explained to the patient. The patient was taken to the procedure room where noninvasive monitoring was placed on the patient including a noninvasive blood pressure cuff and a pulse oximeter. Patient's pump was interrogated. The area over the pump was cleansed with a chlorhexidine as a cleansing solution. In a sterile fashion the pump was accessed using a 22-gauge needle. Approximately 6 mL of fluid was removed and discarded appropriately from his pump. The pump was then refilled with 20 mL of bupivacaine 25 mg/mL. The needle was withdrawn and a bandage was placed over the puncture site. The infusion rate was continued at bupivacaine 13.2 mg/day. The patient tolerated the procedure well with no complications. Plan and Disposition:: Patient was monitored in clinic for short period of time following this procedure and was discharged neurologically intact. I have discussed with the patient regarding his right hip pain and edema and we will submit a referral for an orthopedic physician at [facility] since he for this issue. I will also do a referral to Dr. Dewitt for his left toe. Patient will return to clinic for his next intrathecal pain pump refill date. Patient has been instructed to contact the clinic with any questions or concerns before the next appointment date. Dr. Santana is read this note and agrees with this plan of care. This note was dictated using voice recognition software and may contain errors or omissions.
[2022-05-24 14:57] VITALS: BP 132/64; PULSE 80; RESP 20
== END 2022-05-24 14:59 | disposition home or self-care (01) ==
LOC: SC.PAINP 14:05
PROVIDERS: PCP Internal Medicine; Visit Provider Nurse Anesthetist, Certified Registered
DX: M51.16 Intervertebral disc disorders with radiculopathy, lumbar region (principal); M96.1 Postlaminectomy syndrome, not elsewhere classified
CPT/HCPCS: 62370

== ENCOUNTER 2022-06-10 14:14 | Day surgery (SDC) | payer MEDICARE, OTHER, SELFPAY ==
[2022-06-10 14:25] VITALS: BP 168/77; PULSE 73; RESP 18; O2SAT 98; BMI 24.0
[2022-06-10 15:10] VITALS: BP 146/80; PULSE 74; RESP 18; O2SAT 98
[2022-06-10 15:11] VITALS: BP 146/80; PULSE 74; RESP 18; O2SAT 98
[2022-06-10 15:20] VITALS: BP 168/77; PULSE 79; RESP 20; O2SAT 97
--- NOTE | 2022-06-10 15:40 | P.PCN_ITS ---
Procedure Date: 06/10/22 Time: 15:40 Anesthesiologist:: Reji Santana MD Complications:: None Pre-procedure Diagnosis:: Degenerative disc disease of lumbar spine with lumbar radiculopathy symptoms and postlaminectomy syndrome lumbar spine Post-procedure Diagnosis:: Same Indications for Procedure:: This patient is a pleasant 71-year-old white male who we are treating for low back pain with lumbar radiculopathy symptoms and postlaminectomy syndrome lumbar spine. He currently has an intrathecal bupivacaine pain pump in place. He is having increasing pain in both feet. We will refill his pump today we will increase his infusion 15 mg/day of intrathecal bupivacaine. Sharif and drug screen are all appropriate. He does have an antalgic gait. Motor strength of the lower extremities is 5/5. There is no gross sensory deficit. Procedure Details:: Informed consent was obtained and the risks and benefits of the procedure was explained to the patient. The patient was taken to the procedure room. The pump was interrogated. The area over the pump was prepped using ChloraPrep. The pump was accessed with a 22-gauge needle. Approximately 10 mL's of the intrathecal solution was withdrawn and discarded. The pump was then refilled with 20 mL's of intrathecal bupivacaine 25 mg/mL. The pump was interrogated and the infusion was increased to 15 mg/day. The patient tolerated the procedure well with no complication. Plan and Disposition:: We will follow-up with him in 2 weeks. Will reevaluate symptoms at that time. He is also scheduled to see the labor relations specialist to help with pain in both feet.
== END 2022-06-10 15:20 | disposition home or self-care (01) ==
LOC: SC.PAINP 14:17
PROVIDERS: PCP Internal Medicine; Visit Provider Anesthesiology
DX: M51.16 Intervertebral disc disorders with radiculopathy, lumbar region (principal); M96.1 Postlaminectomy syndrome, not elsewhere classified
CPT/HCPCS: 62370

== ENCOUNTER → 2022-06-13 09:47 | Outpatient (CLI) | payer MEDICARE, OTHER, SELFPAY ==
--- NOTE | 2022-06-13 09:57 | XR_ITS ---
FINAL REPORT CLINICAL HISTORY: pain FINDINGS: RIGHT FOOT Three views of the right ankle were obtained. There is no acute fracture or dislocation. There are mild degenerative changes. There are small calcaneal spurs. There is no soft tissue abnormality. IMPRESSION: Mild degenerative changes. Reviewed, Interpreted and Dictated by Daryl Dunaway III, MD Transcribed by Alexis Cerda Authenticated and [facility]
--- NOTE | 2022-06-13 09:57 | XR_ITS ---
FINAL REPORT CLINICAL HISTORY: pain FINDINGS: LEFT ANKLE Three views of the left ankle were obtained. There is no acute fracture or dislocation. There are mild degenerative changes. There are small calcaneal spurs. There is no soft tissue abnormality. IMPRESSION: Mild degenerative changes. Reviewed, Interpreted and Dictated by Daryl Dunaway III, MD Transcribed by Alexis Cerda Authenticated and . [facility]
--- NOTE | 2022-06-13 09:57 | XR_ITS ---
FINAL REPORT CLINICAL HISTORY: pain FINDINGS: RIGHT ANKLE: Three views of the right ankle were obtained. There is no acute fracture or dislocation. There are mild degenerative changes. There are small calcaneal spurs. There is no soft tissue abnormality. IMPRESSION: Mild degenerative changes. Reviewed, Interpreted and Dictated by Daryl Dunaway III, MD Transcribed by Alexis Cerda Authenticated and [facility]
--- NOTE | 2022-06-13 09:57 | XR_ITS ---
FINAL REPORT CLINICAL HISTORY: pain FINDINGS: LEFT FOOT Three views of the right ankle were obtained. There is no acute fracture or dislocation. There are mild degenerative changes. There are small calcaneal spurs. There is no soft tissue abnormality. IMPRESSION: Mild degenerative changes. Reviewed, Interpreted and Dictated by Daryl Dunaway III, MD Transcribed by Alexis Cerda Authenticated and [facility]
== END ==
PROVIDERS: PCP Internal Medicine; Visit Provider Podiatrist
DX: M79.671 Pain in right foot (principal); M79.672 Pain in left foot
CPT/HCPCS: 73610; 73630

== ENCOUNTER → 2022-06-16 10:14 | Outpatient (CLI) | payer MEDICARE, OTHER, SELFPAY ==
--- NOTE | 2022-06-16 | US_ITS ---
FINAL REPORT CLINICAL HISTORY: Cold extremities with skin changes, Smoker, claudication at rest. FINDINGS: COMPLETE ANKLE/BRACHIAL INDICES BILATERAL Complete ankle brachial indices were obtained. The right ALEJANDRA is 1.2. The left ALEJANDRA is 1.3. IMPRESSION: ABIs are within normal limits bilaterally. Reviewed, Interpreted and Dictated by Daryl Dunaway III, MD Transcribed by aGbi Yi Authenticated and [facility]
== END ==
PROVIDERS: PCP Internal Medicine; Visit Provider Podiatrist
DX: R09.89 Other specified symptoms and signs involving the circulatory and respiratory systems (principal)
CPT/HCPCS: 93923

== ENCOUNTER 2022-06-28 14:45 | Day surgery (SDC) | payer MEDICARE, OTHER, SELFPAY ==
[2022-06-28 14:58] VITALS: BP 133/67; PULSE 78; RESP 18; TEMP 36.4; O2SAT 99; BMI 24.6
[2022-06-28 15:04] VITALS: BP 149/78; PULSE 79; RESP 18; O2SAT 96
[2022-06-28 15:06] VITALS: BP 149/78; PULSE 79; RESP 18; O2SAT 96
--- NOTE | 2022-06-28 15:11 | EXP.PAIN.PRO ---
Procedure Date: 06/28/22 Time: 15:11 Anesthesiologist:: Remigio Cintron CRNA Complications:: None Pre-procedure Diagnosis:: Degenerative disc disease of lumbar spine with lumbar radiculopathy symptoms, postlaminectomy syndrome lumbar spine Post-procedure Diagnosis:: Same Indications for Procedure:: Patient is a pleasant 71-year-old male who presents today for refill and reprogram. We are currently treating the patient for degenerative disc disease of lumbar spine with lumbar radiculopathy symptoms and postlaminectomy syndrome of his lumbar spine. Today the patient rates his pain a 6 out of 10. Patient denies any new trauma or injury. Patient denies any change of location or type of pain he experiences. Patient states since his last appointment where they did increase his intrathecal medication he has had improvement of his symptoms in his feet. Patient is currently managed with bupivacaine 25 mg/mL with a daily dose of 15 mg/day. Patient denies any side effects from this medication. Patient states this medication does help manage his pain symptoms. Physical exam General: Alert and oriented x3, no acute distress, pleasant and cooperative Lungs: Respiration even unlabored, symmetrical chest expansion Eyes: PERRL Musculoskeletal: Flexion and extension of [lumbar] spine somewhat guarded secondary to pain, antalgic gait noted Neurological: Speech clear, no gross sensory deficit Procedure Details:: Informed consent was obtained and the risk and benefits of the procedure were explained to the patient. The patient was taken to the procedure room and placed in a sitting position. Noninvasive monitoring was placed on the patient including a noninvasive blood pressure cuff and a pulse oximeter. The patient's pump was interrogated. The area over the pump was cleansed with ChloraPrep as a cleansing solution. The pump was accessed using a 22-gauge needle. Approximately 9 mL of solution was withdrawn from the pump and discarded appropriately. The pump was then refilled with 20 mL of intrathecal bupivacaine 25 mg/mL with a daily dose of 15 mg/day. The needle was withdrawn and a bandage placed over the site. Patient tolerated the procedure well with no complication. Patient was watched in the clinic area for short period of time following this procedure and discharged neurologically intact. Plan and Disposition:: We will see the patient back at his next intrathecal refill date. I will also order the patient a compounding cream at today's visit. Patient has been counseled to contact the clinic with any questions or concerns before the next appointment date. Dr. Santana has read this note and agrees with this plan of care. This note was dictated using voice recognition software and may contain errors or omissions
[2022-06-28 15:17] VITALS: BP 132/86; PULSE 55; RESP 18; O2SAT 100
== END 2022-06-28 15:17 | disposition home or self-care (01) ==
PROVIDERS: PCP Internal Medicine; Visit Provider Nurse Anesthetist, Certified Registered
DX: M51.16 Intervertebral disc disorders with radiculopathy, lumbar region (principal); M96.1 Postlaminectomy syndrome, not elsewhere classified
CPT/HCPCS: 95991

== ENCOUNTER 2022-07-15 10:20 | Day surgery (SDC) | payer MEDICARE, OTHER, SELFPAY ==
[2022-07-15 10:50] VITALS: BP 157/81; PULSE 90; RESP 18; TEMP 36.4; O2SAT 98; BMI 24.0
[2022-07-15 10:58] VITALS: BP 130/68; PULSE 92; RESP 18; O2SAT 97
[2022-07-15 10:59] VITALS: BP 130/68; PULSE 92; RESP 18; O2SAT 97
--- NOTE | 2022-07-15 11:05 | EXP.PAIN.PRO ---
Procedure Date: 07/15/22 Time: 11:00 Anesthesiologist:: Remigio Cintron CRNA Complications:: None Pre-procedure Diagnosis:: Degenerative disc disease of lumbar spine with lumbar radiculopathy symptoms, postlaminectomy syndrome lumbar spine Post-procedure Diagnosis:: Same Indications for Procedure:: Patient is a pleasant 72-year-old male who presents today for intrathecal pain pump refill and reprogram. We are currently treating the patient for degenerative disc disease of lumbar spine with lumbar radiculopathy symptoms, postlaminectomy syndrome of the lumbar spine. Today he rates his pain a 8 out of 10. Patient denies any new trauma or injury. Patient states he has recently been hunting and may have aggravated his symptoms. Patient denies any new change to location or type of pain he experiences. Patient is currently managed with bupivacaine 25 mg/mL with a daily dose of 15 mg/day. Patient denies any side effects from this medication however patient does state he has chronic constipation issues. Patient states he takes MiraLAX on a daily basis along with stool softeners and Movantik. Patient states these do help however occasionally he will still only have a bowel movement once a week. Patient does state his pump medication does help with his pain symptoms. Patient is also prescribed compounding cream that he states does provide minimal improvement of his symptoms. General: Alert and oriented x3, no acute distress, pleasant and cooperative Lungs: Respiration even unlabored, symmetrical chest expansion Eyes: PERRL Musculoskeletal: Flexion and extension of lumbar spine somewhat guarded secondary to pain, antalgic gait noted Neurological: Speech clear, no gross sensory deficit Procedure Details:: Informed consent was obtained and the risk and the benefits of the procedure were explained to the patient. The patient was taken to the procedure room where noninvasive monitoring such as a noninvasive blood pressure cuff and pulse oximeter was placed on the patient. The patient's pump was interrogated with 9.1 mL expected. The area over the patient's pump was cleansed with ChloraPrep as a cleansing solution. Using a 22-gauge needle and aseptic technique the pump was accessed with 9 mL of solution withdrawn and discarded appropriately. In the pump was filled with 20 mL of solution of bupivacaine 25 mg/mL. The needle was withdrawn and a sterile bandage was placed over the site. The pump was then reinterrogated and continued at bupivacaine 15 mg per day. Patient tolerated the procedure well with no complications. Plan and Disposition:: Patient was monitored in the clinic setting for short period of time following this procedure and discharged neurologically intact. Patient is prescribed tizanidine however he states he does not notice significant improvement. I have discussed with the patient regarding ordering him a different muscle relaxer. I will order cyclobenzaprine 10 mg 3 times daily as needed and provide a 1 month supply of this medication. We will see the patient back at his next intrathecal pain pump refill date. Patient has been counseled to contact the office for any questions or concerns before his next appointment date. Dr. Santana is read this note and agrees with this plan of care. This note was dictated using voice recognition software and may contain errors or omissions.
[2022-07-15 11:25] VITALS: BP 132/64; PULSE 76; RESP 20
== END 2022-07-15 11:26 | disposition home or self-care (01) ==
PROVIDERS: PCP Internal Medicine; Visit Provider Nurse Anesthetist, Certified Registered
DX: M51.16 Intervertebral disc disorders with radiculopathy, lumbar region (principal); M96.1 Postlaminectomy syndrome, not elsewhere classified
CPT/HCPCS: 95991

== ENCOUNTER 2022-08-09 14:06 | Day surgery (SDC) | payer MEDICARE, OTHER, SELFPAY ==
[2022-08-09 14:15] VITALS: BP 179/94; PULSE 77; RESP 18; TEMP 36.5; O2SAT 97; BMI 24.0
--- NOTE | 2022-08-09 14:34 | EXP.PAIN.PRO ---
Procedure Date: 08/09/22 Time: 14:15 Anesthesiologist:: Remigio Cintron CRNA Complications:: None Pre-procedure Diagnosis:: Degenerative disc disease lumbar spine multilevels. Lumbar radiculopathy symptoms lumbar postlaminectomy syndrome Post-procedure Diagnosis:: Same. Indications for Procedure:: This patient 72-year-old male that comes our clinic today for intrathecal pain pump refill. Patient reports his pain is 8/10. Patient reports minimal relief with intrathecal pain pump management. He complains of low back pain with bilateral hip and leg radicular symptoms. We are currently managing the patient with bupivacaine 25 mg/mL at a rate of 15 mg/day. I discussed in detail with the patient regarding making a change in his current medication to the point of adding a narcotic with the bupivacaine. Initial implant was early 2020. He began with morphine sulfate 5 mg/mL. After 3 to 4 months he was continued to have pain and was changed to fentanyl in the intrathecal pain pump. This did help however, patient reports to me today he asked for the fentanyl to be removed. He said he did not want to be on fentanyl. However, patient was having significant relief in his symptoms. I suggest to the patient today that we add a narcotic back into the intrathecal pain pump along with the existing bupivacaine. I will have a discussion with Dr. Santana regarding this change. We will make that change at his next refill date. Patient assures me he is willing to make the change. This is what he wants to do to try to get some relief. He is feeling quite miserable. Procedure Details:: Details of the procedure were explained to the patient. The patient taken the procedure room placed in the sitting position. The area over the pain pump was cleansed using chlorhexidine as a cleansing solution. The pump was accessed with ease using a 22-gauge inch and a half needle. 4.5 mL of solution was removed and discarded appropriately. The pump was then filled with bupivacaine 25 mg/mL. The rate will continue at 15 mg/day. Patient is requesting no increase in his rate due to fear of legs becoming numb. Plan and Disposition:: Patient was discharged without incident.
[2022-08-09 14:36] VITALS: BP 183/83; PULSE 76; RESP 18; TEMP 36.8; O2SAT 100
== END 2022-08-09 14:38 | disposition home or self-care (01) ==
LOC: SC.PAINP 14:07
PROVIDERS: PCP Internal Medicine; Visit Provider Nurse Anesthetist, Certified Registered
DX: M51.16 Intervertebral disc disorders with radiculopathy, lumbar region (principal); M96.1 Postlaminectomy syndrome, not elsewhere classified
CPT/HCPCS: 95991

== ENCOUNTER 2022-09-02 11:27 | Day surgery (SDC) | payer MEDICARE, OTHER, SELFPAY ==
[2022-09-02 12:05] VITALS: BP 146/66; PULSE 73; RESP 18; TEMP 36.5; O2SAT 98; BMI 24.0
[2022-09-02 13:16] VITALS: BP 127/100; PULSE 73; RESP 18; O2SAT 97
[2022-09-02 13:30] VITALS: BP 161/71; PULSE 70; RESP 18; O2SAT 98
--- NOTE | 2022-09-02 13:36 | EXP.PAIN.PRO ---
Procedure Date: 09/02/22 Time: 13:36 Anesthesiologist:: Reji Santana MD Complications:: None Pre-procedure Diagnosis:: Degenerative disc disease of lumbar spine multilevel with lumbar radiculopathy symptoms and lumbar postlaminectomy syndrome Post-procedure Diagnosis:: Same Indications for Procedure:: This patient is a pleasant 72-year-old white male who we are treating for low back pain with lumbar radiculopathy symptoms and postlaminectomy syndrome lumbar spine. He initially was filled by Vivian Cintron. He had talked to him about changing medications. However since patient is currently on oral oxycodone it was decided to continue with intrathecal bupivacaine. We will continue him at the same dose of 15 mg/day. He is to continue with his oxycodone 10 mg 6 times a day. Sharif and drug screen are all appropriate. He does have an antalgic gait. Motor strength of lower extremities is 5/5. There is no gross sensory deficit. Procedure Details:: Informed consent was obtained and the risks and benefits of the procedure was explained to the patient. The patient was taken to the procedure room. The pump was interrogated. The area over the pump was prepped using ChloraPrep. The pump was accessed with a 22-gauge needle. Approximately 5 mL's of the intrathecal solution was withdrawn and discarded. The pump was then refilled with 20 mL's of intrathecal bupivacaine 25 mg/mL. The pump was interrogated and the infusion was continued to intrathecal bupivacaine 15 mg/day. The patient tolerated the procedure well with no complication. Plan and Disposition:: We will follow-up with him at his next pump refill. This to be on or before September 27, 2022.
== END 2022-09-02 13:30 | disposition home or self-care (01) ==
PROVIDERS: PCP Internal Medicine; Visit Provider Anesthesiology
DX: M51.16 Intervertebral disc disorders with radiculopathy, lumbar region (principal); M96.1 Postlaminectomy syndrome, not elsewhere classified
CPT/HCPCS: 95991

== ENCOUNTER 2022-09-20 13:00 | Day surgery (SDC) | payer MEDICARE, OTHER, SELFPAY ==
[2022-09-20 13:25] VITALS: BP 159/97; PULSE 77; RESP 18; TEMP 36.6; O2SAT 98; BMI 24.0
[2022-09-20 13:32] VITALS: BP 166/90; PULSE 73; RESP 18; O2SAT 97
[2022-09-20 13:34] VITALS: BP 166/90; PULSE 73; RESP 18; O2SAT 98
--- NOTE | 2022-09-20 13:42 | EXP.PAIN.PRO ---
Procedure Date: 09/20/22 Time: 13:43 Anesthesiologist:: Remigio Cintron CRNA Complications:: None Pre-procedure Diagnosis:: Degenerative disc disease of lumbar spine multilevel with lumbar radiculopathy symptoms, lumbar postlaminectomy syndrome Post-procedure Diagnosis:: Same Indications for Procedure:: Patient is a pleasant 72-year-old male who presents today for intrathecal refill and reprogram. We are currently treating the patient for degenerative disc disease of lumbar spine multilevels with lumbar radiculopathy symptoms, lumbar postlaminectomy syndrome. Today he rates his pain a 8 out of 10. Patient states that he recently has had a toenail that had a hangnail and he cut it out with a pocket knife and it is now infected. Patient denies any other trauma or injury. Patient is currently managed with bupivacaine 25 mg/mL with 15 mg/day. Patient denies any side effects from this medication. He states this medication does help manage his pain symptoms. He is not requesting a increase at today's visit. His Sharif has been reviewed and appropriate. General: Alert and oriented x3, no acute distress, pleasant and cooperative Lungs: Respiration even unlabored, symmetrical chest expansion Eyes: PERRL Musculoskeletal: Flexion and extension of lumbar spine somewhat guarded secondary to pain, antalgic gait noted Neurological: Speech clear, no gross sensory deficit Skin: Left great toe has moderate edema with seropurulent drainage noted Procedure Details:: Informed consent was obtained and the risk and benefits of the procedure were explained to the patient. The patient was taken to the procedure room where noninvasive monitoring was placed on the patient including a noninvasive blood pressure cuff and pulse oximeter. The area over the pump was interrogated with approximately 8.5 mL of solution expected. The area around the pump was then cleansed with ChloraPrep as a cleansing solution. Using a 22-gauge sterile needle the pump was accessed and approximately 8.6 mL of pump solution was removed and discarded appropriately. The pump was then refilled with 20 mL of bupivacaine 25 mg/mL. The needle was removed and a sterile bandage placed. The pump was then reinterrogated and continued at bupivacaine 15 mg/day. The patient tolerated the procedure well with no complication. Plan and Disposition:: Patient will return to clinic for his next intrathecal pump refill date. I will send in an antibiotic for his current left great toe infection of amoxicillin 500 mg twice daily for 10 days. Patient has been counseled to contact the office with any questions or concerns before the next appointment date. Dr. Santana has read this note and agrees with this plan of care. This note was dictated using voice recognition software and may contain errors or omissions.
[2022-09-20 13:44] VITALS: BP 164/91; PULSE 74; RESP 18; O2SAT 99
== END 2022-09-20 13:44 | disposition home or self-care (01) ==
PROVIDERS: PCP Internal Medicine; Visit Provider Nurse Anesthetist, Certified Registered
DX: Z45.1 Encounter for adjustment and management of infusion pump (principal); M51.16 Intervertebral disc disorders with radiculopathy, lumbar region; M96.1 Postlaminectomy syndrome, not elsewhere classified
CPT/HCPCS: 95991

== ENCOUNTER 2022-10-04 13:03 | Day surgery (SDC) | payer MEDICARE, OTHER, SELFPAY ==
[2022-10-04 13:17] VITALS: BP 152/78; PULSE 81; RESP 18; TEMP 36.4; O2SAT 99; BMI 24.0
[2022-10-04 13:26] VITALS: BP 158/100; PULSE 79; RESP 18; O2SAT 97
[2022-10-04 13:27] VITALS: BP 158/100; PULSE 79; RESP 18; O2SAT 98
--- NOTE | 2022-10-04 13:36 | EXP.PAIN.PRO ---
Procedure Date: 10/04/22 Time: 13:30 Anesthesiologist:: Remigio Cintron CRNA Complications:: None Pre-procedure Diagnosis:: Degenerative disease of her spine multilevels. Lumbar radiculopathy. Lumbar postlaminectomy syndrome. Post-procedure Diagnosis:: Same. Indications for Procedure:: Patient is a 72-year-old male that comes our clinic today for intrathecal pain pump interrogation refill. We currently manage the patient for chronic low back pain as well as bilateral hip and leg radicular symptoms that he describes as constant, dull, aching. Patient has multilevel degenerative disc lumbar spine. Lumbar radiculopathy. Lumbar postlaminectomy syndrome. Today he rates his pain 8/10. He complains of low back pain is well tolerated leg radicular symptoms. He is requesting an increase in his rate. He is currently managed with bupivacaine 25 mg/mL at 15 mg/day. Procedure Details:: Details of the procedure explained to the patient. The patient was taken to procedure room placed in the sitting position. The area over the pump was cleansed using chlorhexidine as a cleansing solution. The pump was accessed with lesions and a 22-gauge inch and half needle. 7 mL of solution was withdrawn and discarded appropriately. The pump was then filled with 20 mL of bupivacaine 25 mg/mL. The pump rate will be increased by 20%. The new pump rate will be 18mg/day. Plan and Disposition:: Patient was discharged without incident.
[2022-10-04 13:39] VITALS: BP 170/72; PULSE 67; RESP 18; O2SAT 99
== END 2022-10-04 13:39 | disposition home or self-care (01) ==
PROVIDERS: PCP Internal Medicine; Visit Provider Nurse Anesthetist, Certified Registered
DX: Z45.1 Encounter for adjustment and management of infusion pump (principal); M51.16 Intervertebral disc disorders with radiculopathy, lumbar region; M96.1 Postlaminectomy syndrome, not elsewhere classified
CPT/HCPCS: 62370

== ENCOUNTER 2022-10-21 10:23 | Day surgery (SDC) | payer MEDICARE, OTHER, SELFPAY ==
[2022-10-21 10:37] VITALS: BP 145/88; PULSE 80; RESP 18; O2SAT 99; BMI 23.2
--- NOTE | 2022-10-21 11:29 | EXP.PAIN.PRO ---
Procedure Date: 10/21/22 Time: 11:29 Anesthesiologist:: Reji Santana MD Complications:: None Pre-procedure Diagnosis:: Degenerative disc disease of lumbar spine with lumbar radiculopathy symptoms, lumbar postlaminectomy syndrome Post-procedure Diagnosis:: Same Indications for Procedure:: Patient is a pleasant 72-year-old male who presents today for intrathecal refill and reprogram. We are currently treating the patient for degenerative disc disease of lumbar spine with lumbar radiculopathy symptoms, lumbar postlaminectomy syndrome. Today he rates his pain an 8 out of 10. Patient denies any new trauma or injury. Patient denies any change to location or type of pain he is experiencing. Patient is currently managed with bupivacaine 25 mg/mL with a daily rate of 18 mg/day. Patient states that he has been experiencing some additional numbness in his legs when he sits down and is requesting a decrease at today's visit. Patient denies any other side effects. His Sharif has been reviewed and appropriate. Physical exam General: Alert and oriented x3, no acute distress, pleasant and cooperative Lungs: Respirations even and unlabored, symmetrical chest expansion Eyes: PERRL Musculoskeletal: Flexion and extension of lumbar [spine] somewhat guarded secondary to pain, [antalgic gait noted] Neurological: Speech clear, no gross sensory deficit Procedure Details:: Informed consent was obtained and the risk and benefits of the procedure were explained to the patient. Patient was taken to the procedure room and placed in a sitting position on the exam room table. Noninvasive monitoring was placed on the patient including a noninvasive blood pressure cuff and pulse oximeter. The pump was interrogated with approximately 7.2 mL of solution expected. The area over the pump was cleansed with ChloraPrep as a cleansing solution. The pump was then accessed with a 22-gauge sterile needle and approximately 7.6 mL of solution was removed and discarded appropriately. The pump was then refilled with 20 mL of bupivacaine 20 mg/mL and his pump decreased to 16.2 mg/day. The patient tolerated this procedure well and was discharged neurologically intact. Plan and Disposition:: We will see the patient back in the clinic at the next intrathecal refill. Patient has been instructed to contact the clinic with any concerns before the next appointment. This note was dictated using voice recognition software and may contain errors or omissions.
[2022-10-21 11:36] VITALS: BP 140/83; PULSE 81; RESP 18; O2SAT 98
[2022-10-21 11:37] VITALS: BP 159/80; PULSE 75; RESP 18; O2SAT 98
== END 2022-10-21 11:40 | disposition home or self-care (01) ==
PROVIDERS: PCP Internal Medicine; Visit Provider Anesthesiology
DX: M51.16 Intervertebral disc disorders with radiculopathy, lumbar region (principal); M96.1 Postlaminectomy syndrome, not elsewhere classified; Z45.1 Encounter for adjustment and management of infusion pump; F17.210 Nicotine dependence, cigarettes, uncomplicated
CPT/HCPCS: 62370

== ENCOUNTER 2022-11-08 12:55 | Day surgery (SDC) | payer MEDICARE, OTHER, SELFPAY ==
[2022-11-08 13:00] VITALS: BP 174/95; PULSE 79; RESP 18; TEMP 36.3; O2SAT 99; BMI 24.5
[2022-11-08 13:20] VITALS: BP 125/80; PULSE 79; RESP 18; O2SAT 98
--- NOTE | 2022-11-08 13:26 | EXP.PAIN.PRO ---
Procedure Date: 11/08/22 Time: 13:15 Anesthesiologist:: Remigio Cintron CRNA Complications:: None Pre-procedure Diagnosis:: Degenerative disease lumbar spine multilevels. Lumbar radiculopathy. Lumbar postlaminectomy syndrome. Post-procedure Diagnosis:: Same. Indications for Procedure:: Patient is a 72-year-old male who presents today for intrathecal pump interrogation and refill. We currently manage the patient with bupivacaine 25 mg/mL with a daily rate of 16.2 mg/day. Procedure Details:: Details of the procedure were explained to the patient. The patient taken the procedure room placed in the seated position. The area over the pump was cleansed using chlorhexidine as a cleansing solution. The pump was interrogated. The pump was accessed with ease using an inch and a half 22-gauge needle. 7 mL of solution was withdrawn and discarded appropriately. The pump was then filled incrementally with bupivacaine 25 mg/mL. Rate will continue at 16.2 mg/day. Patient tolerated procedure without difficulty. There are no complications Plan and Disposition:: Patient was discharged without incident.
[2022-11-08 13:30] VITALS: BP 159/74; PULSE 78; RESP 18; O2SAT 99
== END 2022-11-08 13:30 | disposition home or self-care (01) ==
PROVIDERS: PCP Internal Medicine; Visit Provider Nurse Anesthetist, Certified Registered
DX: Z45.1 Encounter for adjustment and management of infusion pump (principal); M51.16 Intervertebral disc disorders with radiculopathy, lumbar region; M96.1 Postlaminectomy syndrome, not elsewhere classified
CPT/HCPCS: 95991

== ENCOUNTER 2022-11-29 12:54 | Day surgery (SDC) | payer MEDICARE, OTHER, SELFPAY ==
[2022-11-29 13:16] VITALS: BP 159/75; PULSE 85; RESP 18; TEMP 36.9; O2SAT 98; BMI 24.5
[2022-11-29 13:33] VITALS: BP 130/97; PULSE 76; RESP 18; O2SAT 98
[2022-11-29 13:40] VITALS: BP 155/74; PULSE 70; RESP 18; O2SAT 94
--- NOTE | 2022-11-29 13:40 | P.PCN_ITS ---
Procedure Date: 11/29/22 Time: 13:30 Anesthesiologist:: Remigio Cintron CRNA Complications:: None Pre-procedure Diagnosis:: Degenerative disc disease lumbar spine multilevels. Lumbar radiculopathy. Lumbar postlaminectomy syndrome Post-procedure Diagnosis:: Same. Indications for Procedure:: Patient is a 72-year-old male that comes our clinic today for intrathecal pain pump interrogation refill. He is currently being managed with bupivacaine 25 mg/mL with a daily rate of 16.2 mg/day. Patient does not complain of any side effects or complications from the intrathecal medication. Procedure Details:: Details of the procedure explained to the patient. The patient taken procedure room placed in the sitting position. The area over the pump was cleansed using chlorhexidine cleansing solution. The pump was interrogated. The pump was a ccessed with ease using a 22-gauge inch and half needle. 4.6 mL of solution was withdrawn and discarded appropriately. The pump was then filled with 20 cc of bupivacaine 25 mg/mL. The rate will continue at 16.2 mg/day. Plan and Disposition:: Patient was discharged without incident
== END 2022-11-29 13:40 | disposition home or self-care (01) ==
PROVIDERS: PCP Internal Medicine; Visit Provider Nurse Anesthetist, Certified Registered
DX: Z45.1 Encounter for adjustment and management of infusion pump (principal); M51.16 Intervertebral disc disorders with radiculopathy, lumbar region; M96.1 Postlaminectomy syndrome, not elsewhere classified
CPT/HCPCS: 95991

== ENCOUNTER 2022-12-20 13:19 | Day surgery (SDC) | payer MEDICARE, OTHER, SELFPAY ==
[2022-12-20 13:35] VITALS: BP 152/84; PULSE 83; RESP 18; TEMP 36.9; O2SAT 97; BMI 26.6
[2022-12-20 14:07] VITALS: BP 143/65; PULSE 80; RESP 18; O2SAT 97
--- NOTE | 2022-12-20 14:33 | EXP.PAIN.PRO ---
Procedure Date: 12/20/22 Time: 14:20 Anesthesiologist:: Remigio Cintron CRNA Complications:: None Pre-procedure Diagnosis:: Degenerative disc disease lumbar spine multilevels. Lumbar radiculopathy lumbar postlaminectomy syndrome. Post-procedure Diagnosis:: Same. Indications for Procedure:: Patient is a very pleasant 72-year-old male comes our clinic today for intrathecal pain pump interrogation and refill. Patient currently being managed with bupivacaine 25 mg/mL at 16.2 mg/day. Procedure Details:: Details of the procedure explained to the patient. The patient taken procedure room placed in sitting position. The area of the pump was cleansed using chlorhexidine cleansing solution. The pump was interrogated. The pump was accessed with ease using a 22-gauge inch and half needle. 5.7 mL of solution was withdrawn and discarded appropriately. The pump was then filled incrementally with 20 cc of bupivacaine 25 mg/mL. The rate will continue at 16.2 mg today. Patient does not report any side effects or complications from the current intrathecal pain pump management. Plan and Disposition:: Patient was discharged without incident.
== END 2022-12-20 14:07 | disposition home or self-care (01) ==
LOC: SC.PAINP 13:19
PROVIDERS: PCP Internal Medicine; Visit Provider Nurse Anesthetist, Certified Registered
DX: M51.16 Intervertebral disc disorders with radiculopathy, lumbar region (principal); M96.1 Postlaminectomy syndrome, not elsewhere classified; Z45.1 Encounter for adjustment and management of infusion pump
CPT/HCPCS: 95991

== ENCOUNTER 2023-01-10 13:35 | Day surgery (SDC) | payer MEDICARE, OTHER, SELFPAY ==
[2023-01-10 13:51] VITALS: BP 151/90; PULSE 83; RESP 18; TEMP 36.5; O2SAT 98; BMI 24.6
[2023-01-10 14:07] VITALS: BP 167/67; PULSE 75; RESP 18; O2SAT 98
--- NOTE | 2023-01-10 14:07 | EXP.PAIN.PRO ---
Procedure Date: 01/10/23 Time: 14:00 Anesthesiologist:: Remigio Cintron CRNA Complications:: None Pre-procedure Diagnosis:: Degenerative disc disease lumbar spine multilevels. Lumbar radiculopathy. Lumbar postlaminectomy syndrome. Post-procedure Diagnosis:: Same. Indications for Procedure:: Patient is a very pleasant 72-year-old male that comes our clinic today for intrathecal pain pump interrogation refill. Patient complaining of numbness from his waist down at times. Also, numbness in his left shoulder and arm at times. Patient states this typically happens when attempting to get out of bed in the morning. Also, if he sits for any length of time he gets numb in his legs and has difficulty standing. Patient currently being managed with intrathecal pain pump bupivacaine 25 mg/mL at 16.2 mg today. I informed the patient we would turn him down to 14.5 mg/day. He will follow-up with us in a few weeks. Patient will see Dr. Santana at his next visit. Procedure Details:: Details of the procedure explained the patient. The patient taken procedure room placed in the sitting position. The area of the pump was cleansed using chlorhexidine cleansing solution. The pump was interrogated. The pump was then accessed with ease using a 22-gauge inch and half needle. 6 mL of solution was withdrawn and discarded appropriately. The pump was then filled with 20 cc of bupivacaine 25 mg/mL. The pump rate was decreased by 10%. His new rate is 14.5 mg/day. Plan and Disposition:: Patient was discharged without incident.
== END 2023-01-10 14:07 | disposition home or self-care (01) ==
PROVIDERS: PCP Internal Medicine; Visit Provider Nurse Anesthetist, Certified Registered
DX: Z45.1 Encounter for adjustment and management of infusion pump (principal); M51.16 Intervertebral disc disorders with radiculopathy, lumbar region; M96.1 Postlaminectomy syndrome, not elsewhere classified
CPT/HCPCS: 62370

== ENCOUNTER 2023-02-03 13:11 | Day surgery (SDC) | payer MEDICARE, OTHER, SELFPAY ==
[2023-02-03 14:50] VITALS: BP 138/98; PULSE 71; RESP 18; TEMP 36.6; BMI 24.5
[2023-02-03 15:17] VITALS: BP 131/71; PULSE 70; RESP 18; O2SAT 97
[2023-02-03 15:20] VITALS: BP 131/71; PULSE 70; RESP 18; O2SAT 97
[2023-02-03 15:35] VITALS: BP 132/66; PULSE 69; RESP 20
--- NOTE | 2023-02-03 16:25 | P.PCN_ITS ---
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 He has an intrathecal bupivacaine pain pump in place. He continues to have significant pain at times. He is also on oral oxycodone. I believe he is also having some increased numbness when sitting for long periods of time or lying down. We will decrease his intr athecal bupivacaine infusion. We will refill him today. He does have an antalgic gait. Motor strength of lower extremities is 5/5. There is no gross sensory deficit. Sharif and drug screen are all appropriate. Procedure Details:: Informed consent was obtained and the risks and benefits of the procedure was explained to the patient. The patient was taken to the procedure room. The pump was interrogated. The area over the pump was prepped using ChloraPrep. The pump was accessed with a 22-gauge needle. Approximately 5 mL's of the intrathecal solution was withdrawn and discarded. The pump was then refilled with 20 mL's of intrathecal intrathecal bupivacaine 25 mg per ml. The pump was interrogated and the infusion was decreased to 12 mg per. The patient tolerated the procedure well with no complication. Plan and Disposition:: We decrease his intrathecal bupivacaine infusion today. I have talked to him about CBD products to help with his pain symptoms. We will trial some CBD products to see if this helps with his pain symptoms and allows us to decrease his infusion and oral medication.
== END 2023-02-03 15:36 | disposition home or self-care (01) ==
LOC: SC.PAINP 13:12
PROVIDERS: PCP Internal Medicine; Visit Provider Anesthesiology
DX: Z45.1 Encounter for adjustment and management of infusion pump (principal); M51.16 Intervertebral disc disorders with radiculopathy, lumbar region; M96.1 Postlaminectomy syndrome, not elsewhere classified
CPT/HCPCS: 62370

== ENCOUNTER 2023-03-07 13:23 | Day surgery (SDC) | payer MEDICARE, OTHER, SELFPAY ==
[2023-03-07 13:43] VITALS: BP 139/69; PULSE 78; RESP 18; TEMP 36.9; O2SAT 98; BMI 21.9
[2023-03-07 13:53] VITALS: BP 167/83; PULSE 79; RESP 18; O2SAT 97
[2023-03-07 13:54] VITALS: BP 167/83; PULSE 79; RESP 18; O2SAT 97
--- NOTE | 2023-03-07 13:58 | EXP.PAIN.PRO ---
Procedure Date: 03/07/23 Time: 13:40 Anesthesiologist:: Remigio Cintron CRNA Complications:: None Pre-procedure Diagnosis:: Degenerative disc lumbar spine multilevels. Lumbar radiculopathy. Lumbar postlaminectomy syndrome. Post-procedure Diagnosis:: Same Indications for Procedure:: Patient is a 72-year-old male that comes our clinic today for intrathecal pain pump interrogation refill. Patient currently being managed with bupivacaine 25 mg/mL at 12 mg/day. Patient is reporting today on CBD Gummies that were prescribed by Dr. Santana 1 month ago. He reports Gummies have taken the edge off his pain. We will refill his CBD gummy prescription from Dr. Santana. Patient also reporting he is low on his Valium prescription. We will refill that as well. Procedure Details:: Details of the procedure explained to the patient. The patient taken to procedure room placed in sitting position. The area over the pump was cleansed using chlorhexidine cleansing solution. The pump was interrogated. The pump was accessed with ease using a 22-gauge inch and a half needle. 4 mL of solution was withdrawn and discarded appropriately. The pump was then filled incrementally with 20 cc of bupivacaine 25 mg/mL. Plan and Disposition:: Patient was discharged without incident.
[2023-03-07 14:05] VITALS: BP 152/64; PULSE 73; RESP 18; O2SAT 98
[2023-03-07 18:04] LABS: Amphetamine/Metha Screen,Urine Negative ng/ml (<1000)
[2023-03-07 18:05] LABS: Barbiturates Screen,Urine Negative ng/ml (<200); Benzodiazepines Screen,Urine Positive ng/ml (<200)
[2023-03-07 18:06] LABS: Cannabinoid Screen,Urine Negative ng/ml (<50)
[2023-03-07 18:07] LABS: Cocaine Screen,Urine Negative ng/ml (<300); Methadone Screen,Urine Negative ng/ml (<300)
[2023-03-07 18:08] LABS: Opiate Screen,Urine Negative ng/ml (<300)
[2023-03-07 18:09] LABS: Phencyclidine Screen,Urine Negative ng/ml (<25)
[2023-03-14 16:05] LABS: Opiates Negative (Cutoff=100); Oxycodone (GC/MS) 1360 ng/mL (Cutoff=100); Oxymorphone (GC/MS) 948 ng/mL (Cutoff=100)
== END 2023-03-07 14:05 | disposition home or self-care (01) ==
PROVIDERS: PCP Internal Medicine; Visit Provider Nurse Anesthetist, Certified Registered
DX: M51.16 Intervertebral disc disorders with radiculopathy, lumbar region (principal); M96.1 Postlaminectomy syndrome, not elsewhere classified
CPT/HCPCS: 80305; 80361; 80365; 95991; G0480

== ENCOUNTER 2023-03-24 13:42 | Day surgery (SDC) | payer MEDICARE, OTHER, SELFPAY ==
[2023-03-24 13:59] VITALS: BP 151/69; PULSE 76; RESP 16; TEMP 36.6; O2SAT 99; BMI 21.9
[2023-03-24 14:50] VITALS: PULSE 67; RESP 20; O2SAT 94
[2023-03-24 14:57] VITALS: BP 142/65; PULSE 81; RESP 16; O2SAT 98
--- NOTE | 2023-03-24 15:22 | EXP.PAIN.PRO ---
Procedure Date: 03/24/23 Time: 15:22 Anesthesiologist:: Reji Santana MD Complications:: None Pre-procedure Diagnosis:: Postlaminectomy syndrome lumbar spine with lumbar radiculopathy symptoms Post-procedure Diagnosis:: Same Indications for Procedure:: The patient is a pleasant 72-year-old white male who we are treating for low back pain with lumbar radiculopathy symptoms. He has an intrathecal bupivacaine pain pump in place. He is doing well with his pump he is having some increasing back pain so we will increase his pump today to 14 mg/day. Sharif and drug screen are all appropriate. He does have an antalgic gait. Motor strength of lower extremities is 5/5. There is no gross sensory deficit. Procedure Details:: Informed consent was obtained and the risks and benefits of the procedure was explained to the patient. The patient was taken to the procedure room. The pump was interrogated. The area over the pump was prepped using ChloraPrep. The pump was accessed with a 22-gauge needle. Approximately 12 mL's of the intrathecal solution was withdrawn and discarded. The pump was then refilled with 20 mL's of intrathecal bupivacaine 25 mg/mL. The pump was interrogated and the infusion was increased to 14 mg/day. The patient tolerated the procedure well with no complication. Plan and Disposition:: We will follow-up with this patient at his next refill date this will be on April 19, 2023. He also continues with CBD Gummies which does help him sleep.
== END 2023-03-24 14:59 | disposition home or self-care (01) ==
LOC: SC.PAINP 13:43
PROVIDERS: PCP Internal Medicine; Visit Provider Anesthesiology
DX: M96.1 Postlaminectomy syndrome, not elsewhere classified (principal); M54.16 Radiculopathy, lumbar region
CPT/HCPCS: 95991

== ENCOUNTER 2023-04-21 12:39 | Day surgery (SDC) | payer MEDICARE, OTHER, SELFPAY ==
[2023-04-21 12:55] VITALS: BP 138/82; PULSE 79; RESP 20; TEMP 36.1; O2SAT 97; BMI 21.9
[2023-04-21 13:05] VITALS: BP 139/80; PULSE 82; RESP 18; O2SAT 96
--- NOTE | 2023-04-21 13:10 | P.PCN_ITS ---
Procedure Date: 04/21/23 Time: 13:10 Anesthesiologist:: Reji Santana MD Complications:: None Pre-procedure Diagnosis:: Degenerative disc disease of lumbar spine with lumbar radiculopathy symptoms, lumbar postlaminectomy syndrome Post-procedure Diagnosis:: Same Indications for Procedure:: Patient is a pleasant 72-year-old male who presents today for intrathecal refill and reprogram. We are currently treating the patient for degenerative disc disease of lumbar spine with lumbar radiculopathy symptoms, lumbar postlaminectomy syndrome. Today he rates his pain a 5 out of 10. Patient denies any new trauma or injury. He denies any change to location or type of pain he experiences. Patient is currently managed with bupivacaine 25 mg/mL with a daily dose of 14 mg/day. Patient denies any side effects from this medication. Patient is also using CBD Gummies to help in addition to his c urrent intrathecal medication. Patient does state these do help however he does have concerns with the sugar codeine to the outside due to his diabetes. His Sharif has been reviewed and is appropriate. Physical exam General: Alert and oriented x3, no acute distress, pleasant and cooperative Lungs: Respirations even and unlabored, symmetrical chest expansion Eyes: PERRL Musculoskeletal: Flexion and extension of lumbar [spine] somewhat guarded secondary to pain, [antalgic gait noted] Neurological: Speech clear, no gross sensory deficit Procedure Details:: Patient was taken to the procedure room and placed in a seated position. The area over the his back was cleansed with chlorhexidine as a cleansing solution using a 25-gauge sterile needle the pump was accessed with for mL of solution being withdrawn and discarded appropriately. Approximately 3.75 mL of solution was expected. The pump was then refilled with 20 mL of bupivacaine 25 mg/mL. Needle was removed and a sterile bandage applied. The pump was then reinterrogated. Patient tolerated the procedure well with no complications. Plan and Disposition:: Patient will return to clinic on or before his next intrathecal refill date. We have counseled the patient that we do have a CBD oil that can be taken orally instead of the Gummies to minimize added sugar content. We will contact the patient once we have this available and will review this medication efficacy at upcoming visits. We will see the patient back in the clinic at the next intrathecal refill. Patient has been instructed to contact the clinic with any concerns before the next appointment. This note was dictated using voice recognition software and may contain errors or omissions.
[2023-04-21 13:23] VITALS: BP 136/78; PULSE 85; RESP 20; O2SAT 97
== END 2023-04-21 13:26 | disposition home or self-care (01) ==
PROVIDERS: PCP Internal Medicine; Visit Provider Anesthesiology
DX: M51.16 Intervertebral disc disorders with radiculopathy, lumbar region (principal); M96.1 Postlaminectomy syndrome, not elsewhere classified; Z97.8 Presence of other specified devices
CPT/HCPCS: 95991

== ENCOUNTER 2023-05-09 13:58 | Day surgery (SDC) | payer MEDICARE, OTHER, SELFPAY ==
[2023-05-09 14:10] VITALS: BP 127/96; PULSE 44; RESP 18; TEMP 36.5; O2SAT 99; BMI 21.9
--- NOTE | 2023-05-09 14:33 | P.PCN_ITS ---
Procedure Date: 05/09/23 Time: 14:25 Anesthesiologist:: Remigio Cintron CRNA Complications:: None Pre-procedure Diagnosis:: Degenerative disc disease lumbar spine multilevels. Lumbar radiculopathy. Lumbar postlaminectomy syndrome. Post-procedure Diagnosis:: Same. Indications for Procedure:: Patient is a pleasant 72-year-old male that comes our clinic today for intrathecal pain pump interrogation refill. He is doing very well with his current setting of bupivacaine 25 mg/mL 14 mg/day. Patient not complaining of any side effects or complications regarding intrathecal pain pump management. Procedure Details:: Details of the procedure explained to the patient. The patient taken to procedure room placed in the sitting position. The area of the pump was cleansed using chlorhexidine as a cleansing solution. The pump was interrogated . The pump was accessed with ease using 22-gauge inch and a half needle. 10 mL of solution was withdrawn discarded appropriately. The pump was then filled incrementally with 20 mL of a solution containing bupivacaine 25 mg/mL. The pump will continue at 14 mg/day. Patient tolerated procedure without difficulty. No complications Plan and Disposition:: Patient was discharged without incident.
[2023-05-09 14:40] VITALS: BP 136/70; PULSE 44; RESP 20; O2SAT 98
== END 2023-05-09 15:08 | disposition home or self-care (01) ==
PROVIDERS: PCP Internal Medicine; Visit Provider Nurse Anesthetist, Certified Registered
DX: M51.16 Intervertebral disc disorders with radiculopathy, lumbar region (principal); M96.1 Postlaminectomy syndrome, not elsewhere classified; Z97.8 Presence of other specified devices
CPT/HCPCS: 95991

== ENCOUNTER 2023-05-30 11:42 | Day surgery (SDC) | payer MEDICARE, OTHER, SELFPAY ==
[2023-05-30 11:55] VITALS: BP 170/81; PULSE 89; RESP 18; TEMP 36.3; O2SAT 98; BMI 22.1
[2023-05-30 11:58] VITALS: BP 120/90; PULSE 88; RESP 18; O2SAT 96
[2023-05-30 11:59] VITALS: BP 120/90; PULSE 88; RESP 18; O2SAT 96
[2023-05-30 12:10] VITALS: BP 190/92; PULSE 83; RESP 18; O2SAT 98
--- NOTE | 2023-05-30 12:12 | EXP.PAIN.PRO ---
Procedure Date: 05/30/23 Time: 11:50 Anesthesiologist:: Remigio Cintron CRNA Complications:: None Pre-procedure Diagnosis:: Degenerative disc lumbar spine multilevels. Lumbar radiculopathy. Lumbar postlaminectomy syndrome Post-procedure Diagnosis:: Same. Indications for Procedure:: Patient is a very pleasant 72-year-old male comes our clinic today for intrathecal pain pump interrogation refill. Patient currently being managed with bupivacaine 25 mg/mL at 14.0 mg/day. Patient doing very well with his current settings. He is not reporting side effects or complications. Procedure Details:: Details of the procedure explained to the patient. The patient taken to procedure room placed in sitting position. The area of the pump was cleansed using chlorhexidine as a cleansing solution. The pump was interrogated. The pump was accessed with ease using a 22-gauge inch and half needle. 9 mL of solution was withdrawn discarded appropriate. The pump was then filled with 20 cc of solution containing 25 mg per mill bupivacaine. No change in pump rate. Patient tolerated procedure without difficulty. Plan and Disposition:: Patient was discharged without incident
== END 2023-05-30 12:10 | disposition home or self-care (01) ==
PROVIDERS: PCP Internal Medicine; Visit Provider Nurse Anesthetist, Certified Registered
DX: M51.16 Intervertebral disc disorders with radiculopathy, lumbar region (principal); M96.1 Postlaminectomy syndrome, not elsewhere classified; Z97.8 Presence of other specified devices
CPT/HCPCS: 95991

== ENCOUNTER 2023-06-27 11:44 | Day surgery (SDC) | payer MEDICARE, OTHER, SELFPAY ==
[2023-06-27 12:10] VITALS: BP 152/82; PULSE 79; RESP 16; TEMP 36.3; O2SAT 99; BMI 22.6
[2023-06-27 12:39] VITALS: BP 166/81; PULSE 71; RESP 16; O2SAT 97
--- NOTE | 2023-06-27 12:43 | P.PCN_ITS ---
Procedure Date: 06/27/23 Time: 12:30 Anesthesiologist:: Remigio Cintron CRNA Complications:: None Pre-procedure Diagnosis:: Degenerative disc lumbar spine multilevels. Lumbar radiculopathy. Lumbar postlaminectomy syndrome. Post-procedure Diagnosis:: Same. Indications for Procedure:: Patient is a very pleasant 72-year-old male with comes our clinic today for intrathecal pain pump interrogation and refill. He is currently being managed with bupivacaine 25 mg/mL at a rate of 14 mg/day. He reports doing very well in terms of his overall pain. No change since last refill. Patient reports falling twice since last fill. However, he does not associate it with numbness or weakness in his legs. Procedure Details:: Details of the procedure explained to the patient. The patient taken to procedure room placed in the sitting position. The area over the pump is cleansed using chlorhexidine as a cleansing solution. The pump was interrogated. The pump was accessed with ease using a 22-gauge inch and half needle. 4 mL of solution was withdrawn and discarded appropriately. The pump was then filled with bupivacaine 25 mg/mL. Pump rate will continue at 14.0 mg/day. Patient tolerated procedure without difficulty. There were no com plications. Plan and Disposition:: Patient was discharged without incident.
[2023-06-27 14:57] LABS: Amphetamine/Metha Screen,Urine Negative ng/ml (<1000); Barbiturates Screen,Urine Negative ng/ml (<200)
[2023-06-27 14:58] LABS: Benzodiazepines Screen,Urine Positive ng/ml (<200); Cannabinoid Screen,Urine Negative ng/ml (<50)
[2023-06-27 14:59] LABS: Cocaine Screen,Urine Negative ng/ml (<300)
[2023-06-27 15:00] LABS: Methadone Screen,Urine Negative ng/ml (<300); Opiate Screen,Urine Negative ng/ml (<300)
[2023-06-27 15:01] LABS: Phencyclidine Screen,Urine Negative ng/ml (<25)
[2023-07-03 13:09] LABS: Opiates Negative (Cutoff=100); Oxycodone (GC/MS) 848 ng/mL (Cutoff=100); Oxymorphone (GC/MS) 567 ng/mL (Cutoff=100)
== END 2023-06-27 12:39 | disposition home or self-care (01) ==
LOC: SC.PAINP 11:44
PROVIDERS: Anesthesiology; PCP Internal Medicine; Visit Provider Nurse Anesthetist, Certified Registered
DX: M51.16 Intervertebral disc disorders with radiculopathy, lumbar region (principal); M96.1 Postlaminectomy syndrome, not elsewhere classified; Z97.8 Presence of other specified devices
CPT/HCPCS: 80305; 80307; 80361; 80365; 95991; G0480

== ENCOUNTER 2023-07-18 12:55 | Day surgery (SDC) | payer MEDICARE, OTHER, SELFPAY ==
[2023-07-18 13:08] VITALS: BP 138/111; PULSE 76; RESP 18; TEMP 36.3; O2SAT 98; BMI 21.5
[2023-07-18 13:16] VITALS: PULSE 71; O2SAT 94
[2023-07-18 13:22] VITALS: PULSE 64; O2SAT 97
--- NOTE | 2023-07-18 13:22 | EXP.PAIN.PRO ---
Procedure Date: 07/18/23 Time: 13:15 Anesthesiologist:: Remigio Cintron CRNA Complications:: None Pre-procedure Diagnosis:: Degenerative disc lumbar spine multilevels. Lumbar radiculopathy. Lumbar postlaminectomy syndrome. Lumbar spondylosis. Post-procedure Diagnosis:: Same Indications for Procedure:: Patient is a pleasant 73-year-old comes our clinic today for intrathecal pain pump interrogation refill. Patient currently being managed with bupivacaine 25 mg/mL at a rate of 14 mg/day. He is doing very well his current status. He is not requesting any changes today. Procedure Details:: Details of the procedure explained to the patient. The patient taken to procedure room placed in the sitting position. The area over the pump was cleaned using chlorhexidine's cleansing solution. Pump was interrogated. The pump was accessed with ease using 22-gauge inch and half needle. 8 mL of solution was withdrawn discarded appropriately. The pump was then filled with 20 cc of solution containing bupivacaine 25 mg/mL. Patient tolerated procedure without difficulty. There were no complications. Plan and Disposition:: Patient was discharged out incident.
[2023-07-18 13:27] VITALS: BP 171/80; PULSE 100; RESP 16; O2SAT 98
== END 2023-07-18 13:27 | disposition home or self-care (01) ==
PROVIDERS: PCP Internal Medicine; Visit Provider Nurse Anesthetist, Certified Registered
DX: M51.16 Intervertebral disc disorders with radiculopathy, lumbar region (principal); M96.1 Postlaminectomy syndrome, not elsewhere classified; M47.26 Other spondylosis with radiculopathy, lumbar region; Z97.8 Presence of other specified devices
CPT/HCPCS: 95991

== ENCOUNTER 2023-08-08 13:24 | Day surgery (SDC) | payer MEDICARE, OTHER, SELFPAY ==
[2023-08-08 13:41] VITALS: BP 161/53; PULSE 76; RESP 16; O2SAT 99; BMI 23.6
[2023-08-08 13:55] VITALS: BP 112/92; PULSE 77; O2SAT 97
[2023-08-08 13:58] VITALS: BP 112/92; PULSE 77; O2SAT 97
--- NOTE | 2023-08-08 14:05 | EXP.PAIN.PRO ---
Procedure Date: 08/08/23 Time: 13:50 Anesthesiologist:: Remigio Cintron CRNA Complications:: None Pre-procedure Diagnosis:: Degenerative disc disease lumbar spine multilevels. lumbar radiculopathy lumbar postlaminectomy syndrome. Post-procedure Diagnosis:: Same Indications for Procedure:: Patient is a very pleasant 73-year-old male that comes our clinic today for intrathecal pain pump interrogation refill. Patient currently being managed with bupivacaine 25 mg/mL at a rate of 14 mg/day. He is doing very well with his current settings. He is not reporting any side effects or complications. Procedure Details:: Details of the procedure explained the patient. The patient taken procedure room placed in the sitting position. The area over the pump was cleansed using chlorhexidine's cleansing solution. The pump was interrogated. The pump was accessed with ease using a 22-gauge inch and a half needle. 4.2 mL of solution was withdrawn and discarded appropriately. The pump was then filled with 20 cc of solution containing bupivacaine 25 mg/mL. Patient tolerated procedure without difficulty. There are no complications. Plan and Disposition:: Patient was discharged without incident.
[2023-08-08 14:12] VITALS: BP 126/81; PULSE 76; RESP 16; O2SAT 99
== END 2023-08-08 14:12 | disposition home or self-care (01) ==
PROVIDERS: PCP Internal Medicine; Visit Provider Nurse Anesthetist, Certified Registered
DX: M51.16 Intervertebral disc disorders with radiculopathy, lumbar region (principal); M96.1 Postlaminectomy syndrome, not elsewhere classified; Z97.8 Presence of other specified devices
CPT/HCPCS: 95991

== ENCOUNTER 2023-09-05 13:03 | Day surgery (SDC) | payer MEDICARE, OTHER, SELFPAY ==
[2023-09-05 13:10] VITALS: BP 165/84; PULSE 88; RESP 18; O2SAT 98; BMI 22.1
[2023-09-05 13:19] VITALS: BP 176/79; PULSE 78; RESP 18; O2SAT 96
[2023-09-05 13:20] VITALS: BP 176/79; PULSE 78; RESP 18; O2SAT 96
[2023-09-05 13:30] VITALS: BP 161/73; PULSE 74; RESP 16; O2SAT 98
--- NOTE | 2023-09-05 13:33 | EXP.PAIN.PRO ---
Procedure Date: 09/05/23 Time: 13:10 Anesthesiologist:: Remigio Cintron CRNA Complications:: None Pre-procedure Diagnosis:: Degenerative disc lumbar spine multilevels. Lumbar radiculopathy. Lumbar postlaminectomy syndrome. Lumbar spondylosis. Multilevel lumbar facet arthropathy. Post-procedure Diagnosis:: Same. Indications for Procedure:: Patient is a pleasant 73-year-old male that comes our clinic today for intrathecal pain pump interrogation refill. He is currently being managed with 5 mg/mL rate of 14 mg/day. He is doing very well with his current settings. He is not requesting any changes. He does not report any side effects or complications regarding the intrathecal pain pump management. Procedure Details:: Details of the procedure explained to the patient. The patient taken the procedure room placed in the sitting position. They over the pumps cleansed using chlorhexidine as a cleansing solution. The pump was interrogated. The pump was accessed with ease using a 22-gauge inch and half needle. 3.5 mL of solution was withdrawn discarded appropriate. The pump was then filled with 20 cc of a solution containing bupivacaine 25 mg/mL. Patient tolerated procedure well difficulty. There are no complications. Plan and Disposition:: Patient was discharged without incident.
== END 2023-09-05 13:30 | disposition home or self-care (01) ==
PROVIDERS: PCP Internal Medicine; Visit Provider Nurse Anesthetist, Certified Registered
DX: M51.16 Intervertebral disc disorders with radiculopathy, lumbar region (principal); M96.1 Postlaminectomy syndrome, not elsewhere classified; M47.26 Other spondylosis with radiculopathy, lumbar region; Z97.8 Presence of other specified devices; Z45.1 Encounter for adjustment and management of infusion pump
CPT/HCPCS: 95991

== ENCOUNTER 2023-10-03 13:34 | Day surgery (SDC) | payer MEDICARE, OTHER, SELFPAY ==
[2023-10-03 13:55] VITALS: BP 141/104; PULSE 96; RESP 18; TEMP 36.4; O2SAT 96; BMI 22.1
[2023-10-03 14:13] VITALS: BP 132/59; PULSE 53; RESP 18; O2SAT 96
[2023-10-03 14:15] VITALS: BP 132/59; PULSE 43; RESP 18; O2SAT 97
--- NOTE | 2023-10-03 14:23 | EXP.PAIN.PRO ---
Procedure Date: 10/03/23 Time: 14:00 Anesthesiologist:: Remigio Cintron CRNA Complications:: None Pre-procedure Diagnosis:: Degenerative disc lumbar spine multilevels. Lumbar radiculopathy. Lumbar postlaminectomy syndrome. Lumbar spondylosis. Post-procedure Diagnosis:: Same. Indications for Procedure:: Patient is a pleasant 73-year-old male comes our clinic today for intrathecal pain pump interrogation refill. Patient currently being managed with bupivacaine 25 mg/ml at a rate of 14 mg/day. Patient requesting a slight decrease in the rate due to some recent falling secondary to leg weakness. Will decrease in by 10%. His new rate will be 12.6 mg/day. Procedure Details:: Details of the procedure explained to the patient. The patient taken to procedure room and placed in the sitting position. The air over the pump was cleansed using chlorhexidine's cleansing solution. The pump was interrogated. The pump was accessed using a 22-gauge inch and half needle. 3.5 mL of solution was withdrawn discarded appropriate. The pump was then filled with 20 cc of solution containing bupivacaine 25 mg/mL. The pump was decreased by 10%. The new pain pump will be 12.6 mg today patient tolerated procedure without difficulty. No complications. Plan and Disposition:: Patient was discharged without incident.
[2023-10-03 14:25] VITALS: BP 179/64; PULSE 42; RESP 18; O2SAT 96
== END 2023-10-03 14:25 | disposition home or self-care (01) ==
PROVIDERS: PCP Internal Medicine; Visit Provider Nurse Anesthetist, Certified Registered
DX: M51.16 Intervertebral disc disorders with radiculopathy, lumbar region (principal); M96.1 Postlaminectomy syndrome, not elsewhere classified; M47.26 Other spondylosis with radiculopathy, lumbar region; Z97.8 Presence of other specified devices; Z45.1 Encounter for adjustment and management of infusion pump
CPT/HCPCS: 95991

== ENCOUNTER 2023-10-31 10:51 | Day surgery (SDC) | payer MEDICARE, OTHER, SELFPAY ==
[2023-10-31 11:19] VITALS: BP 126/81; PULSE 83; RESP 18; O2SAT 99; BMI 22.1
[2023-10-31 12:07] VITALS: BP 127/67; PULSE 73; RESP 16; O2SAT 99
--- NOTE | 2023-10-31 12:24 | EXP.PAIN.PRO ---
Procedure Date: 10/31/23 Time: 12:10 Anesthesiologist:: Remigio Cintron CRNA Complications:: None Pre-procedure Diagnosis:: Degenerative disc lumbar spine multilevels. Lumbar radiculopathy. Lumbar postlaminectomy syndrome. Lumbar spondylosis. Multilevel lumbar facet arthropathy. Post-procedure Diagnosis:: Same. Indications for Procedure:: Patient is a very pleasant 73-year-old male that comes our clinic today for intrathecal pain pump interrogation refill. Patient currently being managed with bupivacaine 25 mg/mL at a rate of 12.6 mg/day. Patient does not report any side effects or complications. He is not requesting any changes. Procedure Details:: Details of the procedure explained to the patient. The patient taken procedure room placed in sitting position. The over the pump was cleansed using chlorhexidine's cleansing solution. The pump was interrogated. The pump was accessed with ease using a 25-gauge inch and half needle. 5 mL of solution was withdrawn discarded appropriate. The pump was then filled with 20 cc of a solution containing bupivacaine 25 mg/mL. Patient tolerated procedure without difficulty. There are no complications. Plan and Disposition:: Patient was discharged without incident.
== END 2023-10-31 12:07 | disposition home or self-care (01) ==
PROVIDERS: Visit Provider Nurse Anesthetist, Certified Registered
DX: M51.16 Intervertebral disc disorders with radiculopathy, lumbar region (principal); M96.1 Postlaminectomy syndrome, not elsewhere classified; M47.26 Other spondylosis with radiculopathy, lumbar region; Z97.8 Presence of other specified devices; Z45.1 Encounter for adjustment and management of infusion pump
CPT/HCPCS: 95991

== ENCOUNTER 2023-11-21 12:52 | Day surgery (SDC) | payer MEDICARE, OTHER, SELFPAY ==
[2023-11-21 13:09] VITALS: BP 156/98; PULSE 50; RESP 16; TEMP 36.4; O2SAT 92; BMI 23.6
[2023-11-21 13:35] VITALS: BP 152/75; PULSE 71; RESP 18; O2SAT 99
--- NOTE | 2023-11-21 13:38 | EXP.PAIN.PRO ---
Procedure Date: 11/21/23 Time: 13:30 Anesthesiologist:: Remigio Cintron CRNA Complications:: None Pre-procedure Diagnosis:: Degenerative disc lumbar spine multilevels. Lumbar radiculopathy. Lumbar postlaminectomy syndrome. Lumbar spondylosis. Multilevel lumbar facet arthropathy. Post-procedure Diagnosis:: Same Indications for Procedure:: Patient is a very pleasant 73-year-old male comes our clinic today for intrathecal pain pump interrogation refill. He is currently being managed with bupivacaine 25 mg/mL at a rate of 12.6 mg today. He is doing very well with his current settings. He does not request any changes. He does not report any side effects or complications. Procedure Details:: Details of the procedure explained to the patient. The patient taken procedure and placed in the sitting position. The area over the pump is cleansed using chlorhexidine as a cleansing solution. The pump was interrogated. The pump was accessed with ease using a 25-gauge inch and half needle. 9 mL of solution was withdrawn discarded appropriate. The pump was then filled with 20 cc of a solution containing bupivacaine 25 mg/mL. Patient tolerated procedure without difficulty. There are no complications Plan and Disposition:: Patient was discharged without incident.
== END 2023-11-21 13:35 | disposition home or self-care (01) ==
PROVIDERS: Visit Provider Nurse Anesthetist, Certified Registered
DX: M51.16 Intervertebral disc disorders with radiculopathy, lumbar region (principal); M96.1 Postlaminectomy syndrome, not elsewhere classified; M47.26 Other spondylosis with radiculopathy, lumbar region; Z97.8 Presence of other specified devices; Z45.1 Encounter for adjustment and management of infusion pump
CPT/HCPCS: 95991

== ENCOUNTER 2023-12-12 12:52 | Day surgery (SDC) | payer MEDICARE, OTHER, SELFPAY ==
[2023-12-12 13:12] VITALS: BP 127/87; PULSE 77; RESP 18; O2SAT 98; BMI 23.6
--- NOTE | 2023-12-12 13:21 | EXP.PAIN.PRO ---
Procedure Date: 12/12/23 Time: 13:15 Anesthesiologist:: Remigio Cintron CRNA Complications:: None Pre-procedure Diagnosis:: Degenerative disc lumbar spine multilevels. Lumbar radiculopathy. Lumbar postlaminectomy syndrome. Lumbar spondylosis. Multilevel lumbar facet arthropathy. Post-procedure Diagnosis:: Same. Indications for Procedure:: Patient is a very pleasant 73-year-old male who comes our clinic today for intrathecal pain pump interrogation and refill. He is currently being managed with bupivacaine 25 mg/mL at a rate of 12.6 mg/day. He is doing very well with his current settings. He is not reporting side effects or complications. He does not request any changes. Procedure Details:: Details of the procedure explained to the patient. The patient taken the procedure room placed in the sitting position. The area over the pump was cleaned using chlorhexidine's cleansing solution. The pump was interrogated. The pump was accessed with ease using a 22-gauge inch and half needle. 8.5 mL of solution was withdrawn and discarded appropriate. The pump was then filled with 20 cc of solution containing bupivacaine 25 mg/mL. The rate will remain the same at 12.6 mg/day. Patient tolerated procedure without difficulty. There are no complications. Plan and Disposition:: Patient was discharged without incident.
[2023-12-12 13:24] VITALS: BP 138/79; PULSE 68; RESP 18; O2SAT 98
== END 2023-12-12 13:24 | disposition home or self-care (01) ==
PROVIDERS: Visit Provider Nurse Anesthetist, Certified Registered
DX: M51.16 Intervertebral disc disorders with radiculopathy, lumbar region (principal); M96.1 Postlaminectomy syndrome, not elsewhere classified; M47.26 Other spondylosis with radiculopathy, lumbar region; Z97.8 Presence of other specified devices; Z45.1 Encounter for adjustment and management of infusion pump
CPT/HCPCS: 95991

== ENCOUNTER 2024-01-02 08:28 | Day surgery (SDC) | payer MEDICARE, OTHER, SELFPAY ==
[2024-01-02 08:47] VITALS: BP 136/67; PULSE 88; PULSE 89; RESP 18; O2SAT 95
[2024-01-02 08:48] VITALS: BP 146/69; PULSE 92; RESP 18; TEMP 36.6; O2SAT 98; BMI 23.6
--- NOTE | 2024-01-02 08:59 | MR_ITS ---
FINAL REPORT CLINICAL HISTORY: CHRONIS MIGRAINES FINDINGS: Multiplanar MR imaging of the brain was performed without contrast. There is mild age-appropriate atrophy. There are scattered foci of increased T2 signal in the cerebral white matter that have a nonspecific appearance but likely represent mild chronic ischemic/gliotic changes. There is no evidence of intracranial hemorrhage or mass. No abnormal ventricular dilatation is identified. No abnormal extra-axial fluid collection is seen. No abnormality is seen on the diffusion weighted images. The posterior fossa and brainstem are unremarkable. Normal major vessel vascular flow voids are seen. IMPRESSION: Age-appropriate atrophy and mild chronic ischemic/gliotic changes. No acute intracranial abnormality. Reviewed, Interpreted and Dictated by Daryl Dunaway III, MD Transcribed by Gabi Yi Authenticated and [facility]
[2024-01-02 10:27] VITALS: BP 138/96; PULSE 77; RESP 18; O2SAT 97
[2024-01-02 10:28] VITALS: BP 138/96; PULSE 54; RESP 18; O2SAT 96
[2024-01-02 10:35] VITALS: BP 171/86; PULSE 83; RESP 18; TEMP 36.8; O2SAT 98
--- NOTE | 2024-01-02 10:40 | EXP.PAIN.PRO ---
Procedure Date: 01/02/24 Time: 10:30 Anesthesiologist:: Remigio Cintron CRNA Complications:: None Pre-procedure Diagnosis:: Degenerative disc lumbar spine multilevels. Lumbar radiculopathy. Lumbar postlaminectomy syndrome. Lumbar spondylosis. Post-procedure Diagnosis:: Same. Indications for Procedure:: Patient is a pleasant 73-year-old male comes our clinic today for intrathecal pain pump interrogation and refill. Patient also receiving MRI in between MDN and refill. He is currently being managed with bupivacaine 25 mg/mL at a rate of 12.6 mg/day. He develops current settings. He is not reporting side effects or complications. I will also refill his pain medication oxycodone 10 mg 1 p.o. every 4 hours. Also, diazepam 5 mg 1 daily. Procedure Details:: Details of the procedure explained to the patient. The patient taken procedure room placed in sitting position. The area of the pump is cleansed using chlorhexidine's cleansing solution. The pump was interrogated. The pump was accessed with ease using a 22-gauge inch and half needle. 9 cc of solution was withdrawn discarded appropriate. The pump was refilled following MRI with 20 cc of a solution containing bupivacaine 25 mg/mL. Pump rate will remain the same. Patient tolerated procedure without difficulty. There are no complications. Plan and Disposition:: Patient was discharged without incident.
== END 2024-01-02 10:35 | disposition home or self-care (01) ==
PROVIDERS: Visit Provider Nurse Anesthetist, Certified Registered
DX: M51.16 Intervertebral disc disorders with radiculopathy, lumbar region (principal); M96.1 Postlaminectomy syndrome, not elsewhere classified; M47.26 Other spondylosis with radiculopathy, lumbar region; Z97.8 Presence of other specified devices; Z45.1 Encounter for adjustment and management of infusion pump
CPT/HCPCS: 70551; 95991

== ENCOUNTER 2024-01-23 12:52 | Day surgery (SDC) | payer MEDICARE, OTHER, SELFPAY ==
--- NOTE | 2024-01-23 13:22 | EXP.PAIN.PRO ---
Procedure Date: 01/23/24 Time: 13:00 Anesthesiologist:: Remigio Cintron CRNA Complications:: None Pre-procedure Diagnosis:: Degenerative disc lumbar spine multilevels. Lumbar radiculopathy. Lumbar postlaminectomy syndrome. Lumbar spondylosis. Post-procedure Diagnosis:: Same. Indications for Procedure:: Patient is a very pleasant 73-year-old male that comes our clinic today for intrathecal pain pump interrogation refill. He is currently being managed with bupivacaine 25 mg/mL at a rate of 12.6 mg/day. He is doing very well with his current settings. He is not requesting any changes. He does not report any side effects or complications. Procedure Details:: Details of the procedure explained to the patient. The patient taken the procedure room patient sitting position. They over the pumps cleansed using chlorhexidine's cleansing solution. The pump was interrogated. The pump was accessed with ease using a 22-gauge inch and half needle. 8 mL of solution was withdrawn discarded appropriately. The pump was then filled with 20 cc of solution containing bupivacaine 25 mg/mL rate of 12.6 mg/day. Patient tolerated procedure without difficulty. No complications. Plan and Disposition:: Patient was discharged without incident.
[2024-01-23 14:04] VITALS: BP 147/71; PULSE 85; RESP 18; TEMP 36.6; O2SAT 98; BMI 21.4
== END 2024-01-23 13:27 | disposition home or self-care (01) ==
PROVIDERS: Visit Provider Nurse Anesthetist, Certified Registered
DX: M51.16 Intervertebral disc disorders with radiculopathy, lumbar region (principal); M96.1 Postlaminectomy syndrome, not elsewhere classified; M47.26 Other spondylosis with radiculopathy, lumbar region; Z97.8 Presence of other specified devices; Z45.1 Encounter for adjustment and management of infusion pump
CPT/HCPCS: 95991

== ENCOUNTER 2024-02-13 12:37 | Day surgery (SDC) | payer MEDICARE, OTHER, SELFPAY ==
[2024-02-13 13:06] VITALS: BP 143/81; PULSE 81; RESP 18; TEMP 36.2; O2SAT 99; BMI 22.8
--- NOTE | 2024-02-13 13:24 | P.PCN_ITS ---
Procedure Date: 02/13/24 Time: 13:10 Anesthesiologist:: Remigio Cintron CRNA Complications:: None Pre-procedure Diagnosis:: Degenerative disc lumbar spine multilevels. Lumbar radiculopathy. Lumbar postlaminectomy syndrome. Post-procedure Diagnosis:: Same. Indications for Procedure:: Patient is a very pleasant 73-year-old male comes our clinic today for intrathecal pain pump interrogation refill. He is currently being managed with bupivacaine 25 mg/mL rate of 12.6 mg/day. He is doing very well with his current settings. He is not requesting any changes or adjustments. He is not reporting side effects or complications. Procedure Details:: Details of the procedure explained to the patient. The patient taken procedure and placed in the sitting position. The area over the pump was cleansed using chlorhexidine's cleansing solution. The pump was interrogated. The pump was accessed with ease using a 22-gauge inch and half needle. 8 mL of solution was withdrawn discarded appropriate. The pump was then filled with 20 cc of darryl ution containing bupivacaine 25 mg/mL. The rate will continue at 12.6 mg/day. Patient tolerated procedure without difficulty. No complications. Plan and Disposition:: Patient was discharged without incident.
[2024-02-13 13:25] VITALS: BP 169/85; PULSE 87; RESP 18; O2SAT 100
== END 2024-02-13 13:25 | disposition home or self-care (01) ==
PROVIDERS: PCP Student in an Organized Health Care Education/Training Program; Visit Provider Nurse Anesthetist, Certified Registered
DX: M51.16 Intervertebral disc disorders with radiculopathy, lumbar region (principal); M96.1 Postlaminectomy syndrome, not elsewhere classified; Z97.8 Presence of other specified devices; Z45.1 Encounter for adjustment and management of infusion pump
CPT/HCPCS: 95991

== ENCOUNTER 2024-03-05 13:08 | Day surgery (SDC) | payer MEDICARE, OTHER, SELFPAY ==
[2024-03-05 13:17] VITALS: BP 155/84; PULSE 91; RESP 18; TEMP 36.4; O2SAT 100; BMI 22.3
[2024-03-05 13:29] VITALS: BP 149/96; PULSE 83; RESP 18; O2SAT 97
--- NOTE | 2024-03-05 13:35 | EXP.PAIN.PRO ---
Procedure Date: 03/05/24 Time: 13:15 Anesthesiologist:: Remigio Cintron CRNA Complications:: None Pre-procedure Diagnosis:: Degenerative disc lumbar spine multilevels. Lumbar radiculopathy. Lumbar postlaminectomy syndrome. Post-procedure Diagnosis:: Same. Indications for Procedure:: Patient is a very pleasant 73-year-old male comes our clinic today for intrathecal pain pump interrogation refill. He is currently being managed with bupivacaine 25 mg/mL at 12.6 mg/day. He is doing very well with his current settings. He is not requesting any changes or adjustments. He is not reporting side effects or complications. Procedure Details:: Details of the procedure explained to the patient. The patient taken procedure room placed in sitting position. They over the pumps cleansed using chlorhexidine's cleansing solution. The pump was interrogated. The pump was accessed with the usual inch and half 22-gauge needle. 8 mL of solution was withdrawn discarded appropriate. The pump was then filled with 20 cc of solution containing bupivacaine 25 mg/mL. The rate will continue at 12.6 mg/day. Patient tolerated procedure without difficulty. There are no complications. Plan and Disposition:: Patient was discharged without incident.
[2024-03-05 13:40] VITALS: BP 171/83; PULSE 80; RESP 18; O2SAT 100
== END 2024-03-05 13:40 | disposition home or self-care (01) ==
PROVIDERS: PCP Student in an Organized Health Care Education/Training Program; Visit Provider Nurse Anesthetist, Certified Registered
DX: Z79.891 Long term (current) use of opiate analgesic (principal); M51.36 Other intervertebral disc degeneration, lumbar region; M96.1 Postlaminectomy syndrome, not elsewhere classified; M54.16 Radiculopathy, lumbar region; G89.29 Other chronic pain
CPT/HCPCS: 95991

== ENCOUNTER 2024-03-26 13:27 | Day surgery (SDC) | payer MEDICARE, OTHER, SELFPAY ==
[2024-03-26 13:51] VITALS: BP 131/82; PULSE 63; RESP 16; TEMP 36.8; O2SAT 98; BMI 22.3
[2024-03-26 13:58] VITALS: BP 128/66; PULSE 61; RESP 18; O2SAT 97
[2024-03-26 14:00] VITALS: BP 128/66; PULSE 61; RESP 18; O2SAT 97
--- NOTE | 2024-03-26 14:05 | EXP.PAIN.PRO ---
Procedure Date: 03/26/24 Time: 13:50 Anesthesiologist:: Remigio Cintron CRNA Complications:: None Pre-procedure Diagnosis:: Degenerative disc lumbar spine multilevels. Lumbar radiculopathy. Lumbar postlaminectomy syndrome. Post-procedure Diagnosis:: Same. Indications for Procedure:: Patient is a very pleasant 73-year-old male comes our clinic today for intrathecal pain pump interrogation and refill. Patient's currently being managed with bupivacaine 25 mg/mL rate of 12.6 mg/day. He is doing very well with his current settings. He does not request any changes. Is not reporting side effects or complications. Procedure Details:: Details of the procedure explained to the patient. The patient taken to procedure room placed in sitting position. They over the palms cleansed using chlorhexidine's cleansing solution. Pump was interrogated. The pump was accessed with ease using a 22-gauge inch and half needle. 8 mL of solution was withdrawn discarded appropriate. The pump was then filled with 20 cc of solution containing bupivacaine 25 mg/mL. Patient tolerated procedure without difficulty. There are no complications. Plan and Disposition:: Patient was discharged without incident.
[2024-03-26 14:13] VITALS: BP 127/72; PULSE 71; RESP 16; O2SAT 98
== END 2024-03-26 14:14 | disposition home or self-care (01) ==
PROVIDERS: PCP Student in an Organized Health Care Education/Training Program; Visit Provider Nurse Anesthetist, Certified Registered
DX: G89.29 Other chronic pain (principal); M54.59 Other low back pain; M51.36 Other intervertebral disc degeneration, lumbar region; M54.16 Radiculopathy, lumbar region
CPT/HCPCS: 95991

== ENCOUNTER 2024-04-16 13:56 | Day surgery (SDC) | payer MEDICARE, OTHER, SELFPAY ==
[2024-04-16 14:09] VITALS: BP 120/68; PULSE 81; RESP 16; TEMP 36.7; O2SAT 99; BMI 22.1
[2024-04-16 14:20] VITALS: BP 116/90; PULSE 87; RESP 18; O2SAT 97
[2024-04-16 14:21] VITALS: BP 116/90; PULSE 87; RESP 18; O2SAT 97
[2024-04-16 14:31] VITALS: BP 110/62; PULSE 78; RESP 18; O2SAT 99
--- NOTE | 2024-04-16 14:45 | EXP.PAIN.PRO ---
Procedure Date: 04/16/24 Time: 14:15 Anesthesiologist:: Remigio Cintron CRNA Complications:: None Pre-procedure Diagnosis:: Degenerative disc lumbar spine multilevels. Lumbar radiculopathy. Lumbar postlaminectomy syndrome. Post-procedure Diagnosis:: Same. Indications for Procedure:: Patient is a pleasant 73-year-old male who comes our clinic today for intrathecal pain pump interrogation and refill. He is currently being managed with bupivacaine 25 mg/mL at a rate of 12.6 mg/day. He is doing very well to his current settings. He is not requesting any changes. He is not reporting side effects or complications. Procedure Details:: Details of the procedure explained to the patient. The patient taken procedure room placed in sitting position. They over the pumps cleansed using chlorhexidine as a cleansing solution. The pump was interrogated. The pump was accessed with ease using a 22-gauge inch and half needle. 8 mL of solution was withdrawn and discarded appropriate. The pump was then filled with 20 cc of solution containing bupivacaine 25 mg/mL. Patient tolerated procedure without difficulty. There are no complications. Plan and Disposition:: Patient was discharged without incident.
== END 2024-04-16 14:31 | disposition home or self-care (01) ==
LOC: SC.PAINP 13:57
PROVIDERS: PCP Student in an Organized Health Care Education/Training Program; Visit Provider Nurse Anesthetist, Certified Registered
DX: M51.36 Other intervertebral disc degeneration, lumbar region (principal); M96.1 Postlaminectomy syndrome, not elsewhere classified
CPT/HCPCS: 95991

== ENCOUNTER 2024-05-14 13:59 | Day surgery (SDC) | payer MEDICARE, OTHER, SELFPAY ==
[2024-05-14 14:15] VITALS: BP 184/66; PULSE 83; RESP 16; TEMP 36.7; O2SAT 98; BMI 16.9
[2024-05-14 14:23] VITALS: BP 164/76; PULSE 72; RESP 18; O2SAT 98
--- NOTE | 2024-05-14 14:39 | EXP.PAIN.PRO ---
Procedure Date: 05/14/24 Time: 14:30 Anesthesiologist:: Remigio Cintron CRNA Complications:: None Pre-procedure Diagnosis:: Degenerative disc lumbar spine multilevels. Lumbar radiculopathy. Lumbar postlaminectomy syndrome Post-procedure Diagnosis:: Same. Indications for Procedure:: Patient is a very pleasant 73-year-old male comes our clinic today for intrathecal pain pump interrogation and refill. Patient currently being managed with bupivacaine 25 mg/mL at 12.6 mg/day. Patient has been at this dose for at least 1 year. He is reporting today some increased pain in the low back as well as bilateral hips and legs. This seems to increase with activity. His overall pump rate was turned up once before and his legs became numb and tingling. He wants to avoid this happening again. I suggest we increase the pump by 3%. His new rate will be 12.97 mg/day. Patient is awake alert [place] x 3. No acute distress. Flexion-extension lumbar spine guarded secondary to pain. Deep tendon reflexes upper lower extremities normal. Motor strength upper and lower extremities normal. There is no gross sensory deficit. Gait is antalgic. Patient requires a cane for stability. Procedure Details:: Details of the procedure explained to the patient. The patient taken procedure room placed in the sitting position. They over the pumps cleansed using chlorhexidine as a cleansing solution. 4.5 mL solution was withdrawn discarded appropriate. The pump was then filled 20 cc of solution containing bupivacaine 25 mg/mL. The pump rate will be increased by 3%. The new rate is 12.9700 mg/day. Patient tolerated procedure without difficulty. No complications. Plan and Disposition:: Patient was discharged without incident.
[2024-05-14 14:43] VITALS: BP 171/85; PULSE 71; RESP 16; O2SAT 100
== END 2024-05-14 14:43 | disposition home or self-care (01) ==
PROVIDERS: PCP Student in an Organized Health Care Education/Training Program; Visit Provider Nurse Anesthetist, Certified Registered
DX: M51.16 Intervertebral disc disorders with radiculopathy, lumbar region (principal); M96.1 Postlaminectomy syndrome, not elsewhere classified
CPT/HCPCS: 95991

== ENCOUNTER 2024-05-21 13:43 | Outpatient (POV) | payer MEDICARE, OTHER, SELFPAY ==
--- NOTE | 2024-05-21 14:26 | EXP.PAIN.PRO ---
Procedure Date: 05/21/24 Time: 14:15 Anesthesiologist:: Remigio Cintron CRNA Complications:: None Pre-procedure Diagnosis:: Degenerative disc lumbar spine multilevels. Lumbar radiculopathy. Lumbar postlaminectomy syndrome. Post-procedure Diagnosis:: Same. Indications for Procedure:: Patient is a very pleasant 73-year-old male who comes our clinic today intrathecal pain pump interrogation and reprogram. Patient currently being managed with bupivacaine 25 mg/mL at a rate of 12.9700 mg/day. He is requesting increase due to increased pain in the lumbar and thoracic area. Also, patient's bolus device is no longer functioning. I will increase his pump by 3%. Also, discussed with Dr. Santana regarding the need for probable flow Jhonatan pump exchange. Discussed in detail with the patient regarding pump exchange. He is willing to proceed. Procedure Details:: Details of the procedure explained to the patient. The patient taken procedure and placed in sitting position. The pump was interrogated. The pump was increased by 3%. The new pump rate will be 13.3500 mg today. Patient tolerated procedure without difficulty. No complications. Plan and Disposition:: Patient was discharged without incident.
== END 2024-05-21 23:59 | disposition home or self-care (01) ==
PROVIDERS: Visit Provider Nurse Anesthetist, Certified Registered
DX: M51.16 Intervertebral disc disorders with radiculopathy, lumbar region (principal); M96.1 Postlaminectomy syndrome, not elsewhere classified
CPT/HCPCS: 62368

== ENCOUNTER 2024-06-04 12:49 | Outpatient (CLI) | payer MEDICARE, OTHER, SELFPAY ==
--- NOTE | 2024-06-04 13:45 | ECG_ITS ---
APPROVED REPORT Exam: Resting ECG HR:72 bpm ECG Measurements Heart Rate 72 AXES AR 185 P 70 QRSd 101 QRS 8 QT 374 T -4 QTc 398 Conclusion SINUS RHYTHM INCOMPLETE RIGHT BUNDLE BRANCH BLOCK [90+ ms QRS DURATION, TERMINAL R IN V1/V2, 40+ ms S IN I/aVL/V4/V5/V6] BORDERLINE ECG UNCONFIRMED REPORT Electronically signed by : Bebeto Davila MD 06/13/2024 16:11:19
[2024-06-04 15:04] LABS: Basophils % 0.7 % (0.1-2.0); Eosinophils # 0.3 K/mm3 (0.0-0.4); Eosinophils % 4.1 % (0.1-12.0); Hemoglobin 14.3 g/dL (14.1-18.0); Lymphocytes # 1.3 K/mm3 (0.7-4.5); Lymphocytes % 20.3 % (10-50); Mean Corpuscular HGB Conc 34.9 g/dL (31.8-35.4); Mean Corpuscular Hemoglobin 31.2 pg (27.0-31.2); Mean Corpuscular Volume 89.6 fl (80-94); Mean Platelet Volume 11.1 fl (7.4-10.4); Monocytes # 0.3 K/mm3 (0.1-1.0); Monocytes % 5.2 % (1.7-9.3); Neutrophils # 4.5 K/mm3 (1.8-7.8); Neutrophils % 69.7 % (37.0-80.0); Platelet Count 103 K/mm3 (142-424); Red Blood Count 4.57 M/mm3 (4.60-6.20); Red Cell Distribution Width 14.3 % (11.5-17.5); White Blood Count 6.4 K/mm3 (4.8-10.8)
[2024-06-04 15:06] LABS: Albumin Level 4.1 g/dl (3.5-5.0); Chloride 107 mmol/L (98-107); Potassium 3.9 mmoL/L (3.5-5.1); Sodium 137 mmol/L (136-145)
[2024-06-04 15:09] LABS: Alanine Aminotransferase 17 U/L (12-78); Albumin/Globulin Ratio 1.6 (1.1-1.8); Alkaline Phosphatase 100 U/L (38-126); Anion Gap 9.9 mEq/L (5-15); Aspartate Amino Transferase 28 U/L (17-59); Bilirubin,Total 0.5 mg/dl (0.2-1.3); Blood Urea Nitrogen 15 mg/dl (9-20); Calcium 9.2 mg/dl (8.4-10.2); Carbon Dioxide 24 mmol/L (22.0-30.0); Estimated Glomerular Filt Rate 95 ml/min (>60); GFR (African American) 115 ML/MIN (>60); Globulin 2.5 g/dL (1.3-3.2); Glucose 125 mg/dl (74-100); Total Protein,Serum 6.6 g/dl (6.3-8.2)
== END 2024-06-04 23:59 | disposition home or self-care (01) ==
LOC: PREOP 12:51
PROVIDERS: PCP Student in an Organized Health Care Education/Training Program; Visit Provider Anesthesiology
DX: M54.9 Dorsalgia, unspecified (principal); I45.19 Other right bundle-branch block; R94.31 Abnormal electrocardiogram [ECG] [EKG]
CPT/HCPCS: 80053; 85025; 93005

== ENCOUNTER 2024-06-07 08:53 | Day surgery (SDC) | payer MEDICARE, OTHER, SELFPAY ==
[2024-06-04 12:43] VITALS: BMI 24.6
[2024-06-04 13:42] VITALS: BMI 22.3
[2024-06-07] VITALS (8 sets, daily range): BP systolic 113–180; BP diastolic 65–90; PULSE 67–93; RESP 18–81; TEMP 36.2–36.7; O2SAT 98–100
[2024-06-07] MEDS: LACTATED RINGERS 1000ML 1,000 ML 25 ML IV (09:27)
[2024-06-07] MEDS: VANCOMYCIN HCL 1,000 MG in 0.9 % SODIUM CHLORIDE 250 ML 125 MG IV (09:28)
[2024-06-07] MEDS: SODIUM CHLORIDE 0.9% 20ML VIAL 40 ML IV (11:11)
[2024-06-07] MEDS: GENTAMICIN 80 MG/2 ML VIAL (11:11)
[2024-06-07] MEDS: LIDOCAINE 1% W/EPI 1:100,000 20ML VIAL 20 ML ×2 (11:11)
--- NOTE | 2024-06-07 12:52 | EXP.OP.NOTE ---
Date of procedure: 06/07/24 Pre-op Diagnosis:: Nonfunctioning intrathecal pain pump for degenerative disease of lumbar spine with lumbar radiculopathy symptoms and postlaminectomy syndrome lumbar spine Post-op Diagnosis:: Same Procedure performed:: Replacement of intrathecal pain pump system with new tunneled intrathecal catheter and replacement pain pump generator Surgeon:: Reji Santana MD PATIENT ACCESS REPRESENTATIVE:: Tato Kendrick Anesthesia: MAC Estimated blood loss (mL): 5 Clinical Note:: This patient is a pleasant 73-year-old white male who we are treating for low back pain with lumbar radiculopathy symptoms and postlaminectomy syndrome lumbar spine. He has a nonfunctioning [employer] pain pump system in place. We are replacing his pain pump system today with a new tunneled intrathecal catheter and pain pump generator. He wants to move his pain pump generator to the left flank as it is causing some discomfort on the right side. Operative findings:: None Operative note:: Informed consent was obtained risk and benefits of the procedure were explained to the patient. The patient was taken the operating room placed prone on the procedure table. He was prepped and draped in sterile fashion. The skin and subcutaneous tissues overlying the pain pump generator were anesthetized using lidocaine. I made incision and dissected out the pain pump generator. I disconnected the catheter. I tied off with 0 silk ties x 3. C-arm fluoroscopy was then used to view the left flank. [place] between the 12th rib and iliac crest the skin and subcutaneous tissues were anesthetized using lidocaine. I made an incision and dissected out the generator pocket. C-arm fluoroscopy was then used to view the lumbar spine. The skin and subcutaneous tissues adjacent to the L4-5 and L5-S1 interspace were anesthetized using lidocaine. I made incision dissected down to the lumbar paraspinous fascia. A 17-gauge spinal needle was inserted and advanced into the L4-5 interspace until clear CSF was obtained. After this intrathecal catheter was inserted and advanced very easily to the T8 vertebral body. Catheter was midline and posterior. The stylette of the catheter and the needle were withdrawn. The catheter was secured to the fascia with an anchoring device and 2-0 Prolene. I tunneled the catheter from the back to the generator pocket on the left flank. Previous to this I filled the pump with bupivacaine 20 mL of 25 mg/mL. I attached catheter to the pump. We were able to freely withdraw clear CSF through the sideport. The pump was then placed in the pocket on the left flank with an antibiotic pouch. All 3 incisions were closed with 2-0 Vicryl followed by 4-0 nylon and sandra. Patient was placed in an abdominal binder taken recovery in stable condition. The patient tolerated the procedure well with no complications. The pump was interrogated and started back at 10 mg/day with PTM boluses of 1 mg up to 6 times a day with a 4-hour lockout. His refill date is 07/03/2024. Patient was discharged home neurologic intact with good relief of pain symptoms. Plan and disposition: We will follow-up with this patient in 1 week for wound check we will follow-up in 2 to 3 weeks for suture and staple removal. His refill date again is 07/03/2024 Condition: stable Disposition: PACU Complications:: None
== END 2024-06-07 13:15 | disposition home or self-care (01) ==
PROVIDERS: PCP Student in an Organized Health Care Education/Training Program; Visit Provider Anesthesiology
PROC: (CPT 62350; principal; 2024-06-07 10:30)
DX: M51.16 Intervertebral disc disorders with radiculopathy, lumbar region (principal); M96.1 Postlaminectomy syndrome, not elsewhere classified; T85.695A Other mechanical complication of other nervous system device, implant or graft, initial encounter
CPT/HCPCS: 62350; 62362; 96374; C1755; C1772; J1580; J3370; J7050; J7120

== ENCOUNTER 2024-06-12 14:10 | Outpatient (POV) | payer MEDICARE, OTHER, SELFPAY ==
--- NOTE | 2024-06-12 15:01 | EXP.PAIN.SOA ---
[facility] Disclaimer: The information contained in this section may have been updated after the patient was seen, as this information can be updated by other users. Medical History Foot pain, bilateral Staph infection Anxiety Family history of prostate problems Degenerative disc disease Back pain Hypertension Anemia Surgical History History of tonsillectomy History of gastric surgery History of bilateral knee replacement Previous back surgery History of right shoulder replacement Family History Other Family history of cancer Family history of diabetes mellitus Family history of heart disease Social History Smoking Status: Current every day smoker tobacco type: cigarettes packs per day: 1 alcohol intake: never current occupational status: retired Travel in the last 8 weeks: None household members: spouse housing: house current occupational exposures/hazards: No caffeine: Yes PM Subjective & Objective Subjective Subjective:: Patient is a pleasant 73-year-old male who presents today for 1 week postop of spinal cord stimulator replacement. Today he rates his pain a 9 out of 10. He denies any new trauma or injury. He does state a lot of he has is related to incisional pain. Patient does feel like his pump is not working as well as what it was prior to. Patient is currently managed with bupivacaine 25 mg/mL with a daily dose of 9.994 mg/day. He denies any side effects from this medication. Patient is also managed with oxycodone 10 mg 6 times a day, diazepam 5 mg daily from our office and pregabalin 150 mg twice daily from an outside provider. He denies any side effects from this medication. His Sharif has been reviewed and is appropriate. Review of Systems: General: No recent weight changes, no fever, no sleep disturbances Respiratory: No cough, no shortness of air, no recurring pulmonary infections Cardiovascular/peripheral vascular: No chest pain, no palpitations, no edema, no shortness of breath Gastrointestinal: No new onset incontinence, normal bowel movements reported Genitourinary: No new onset incontinence Musculoskeletal: Low back pain Psychiatric: [Normal mood/affect] Neurological: [Denies weakness in extremities], [denies balance issues] Pain at rest (0-10 scale): 9 Objective Objective:: Physical Exam: General: Alert and oriented x3, no acute distress, pleasant and cooperative Lungs: Respirations even and unlabored, symmetrical chest expansion Eyes: PERRL Musculoskeletal: Flexion and extension of lumbar [spine] somewhat guarded secondary to pain, [antalgic gait noted] Neurological: Speech clear, no gross sensory deficit Skin: Incision sites are clean, dry, well-approximated with sutures and sandra intact minimal erythema noted Has patient had previous pain injection?: No Conservative treatment options previously tried: Home exercise plan Length of treatment: Longer than 6 weeks Meds Home Medications and Allergies Home Medications ?Medication ?Instructions ?Recorded ?Confirmed ?Type amlodipine 10 mg tablet 10 mg PO DAILY blood pressure 12/30/20 06/07/24 History duloxetine 60 mg capsule,delayed 60 mg PO DAILY mood 12/30/20 06/07/24 History release esomeprazole magnesium 40 mg 40 mg PO DAILY GERD 12/30/20 06/07/24 History capsule,delayed release lisinopril 40 mg tablet 40 mg PO DAILY blood pressure 12/30/20 06/07/24 History pregabalin 300 mg capsule 300 mg PO BID nerve pain 12/30/20 06/07/24 History tamsulosin 0.4 mg capsule 0.4 mg PO HS BPH 12/30/20 06/07/24 History topiramate 100 mg tablet 100 mg PO TID PRN Migraine Headache 12/30/20 06/07/24 History bupivacaine (PF) 0.5 % (5 mg/mL) 3.6 mg intrathecal Q2HP PRN 02/25/21 06/07/24 History injection solution chronic pain naloxone 4 mg/actuation nasal spray 4 mg intranasal ONCE PRN 06/21/21 06/07/24 Rx oversedation 30 days #2 mL trazodone 50 mg tablet 50 - 100 mg PO HS Insomnia 08/30/21 06/07/24 History ascorbic acid (vitamin C) 100 mg 100 mg PO DAILY Supplement 11/22/21 06/07/24 History tablet calcium 250 mg (as 1 each PO DAILY Supplement 11/22/21 06/07/24 History carbonate)-vitamin D3 3.125 mcg (125 unit) tablet cetirizine 10 mg tablet 10 mg PO DAILY allergies 11/22/21 06/07/24 History dicyclomine 20 mg tablet 20 mg PO QID . 11/22/21 06/07/24 History ferrous sulfate 325 mg (65 mg 325 mg PO DAILY Supplement 11/22/21 06/07/24 History iron) tablet magnesium glycinate 100 mg (as 100 mg PO DAILY Supplement 11/22/21 06/07/24 History glycinate) tablet multivitamin 1 each PO DAILY Supplement 11/22/21 06/07/24 History naloxegol 25 mg tablet 25 mg PO DAILY Constipation 11/22/21 06/07/24 History omega-3 fatty acids-fish oil 684 1 each PO DAILY Supplement 11/22/21 06/07/24 History mg-1,200 mg capsule,delayed release sumatriptan succinate 100 mg tablet 100 mg PO NEEDED PRN Migraine 02/25/22 06/07/24 History Headache naloxone 4 mg/actuation nasal 4 mg intranasal Q3M PRN opioid 10/05/23 06/07/24 Rx spray (Narcan) overdose #2 ea diazepam 5 mg tablet 5 mg PO DAILY Anxiety #30 tabs 04/17/24 06/07/24 Rx oxycodone 10 mg tablet 10 mg PO Q4H Pain #180 tabs 05/20/24 06/07/24 Rx sulfamethoxazole 800 1 tab PO BID #14 tabs 06/07/24 Rx mg-trimethoprim 160 mg tablet (Bactrim DS) New Prescriptions to Start Prescriptions: Allergies Allergy/AdvReac Type Severity Reaction Status Date / Time cortisone Allergy Intermediate Diarrhea Verified 06/07/24 09:31 codeine [CODEINE] Allergy Unknown STOMACH Verified 04/16/24 14:10 CRAMPING methocarbamol AdvReac Intermediate Rash Verified 06/07/24 09:31 [email or web address] [From Myrbetriq] AdvReac Intermediate Rash Verified 06/07/24 09:31 Assessment and Plan *Assessment and plan (1) Chronic back pain: Status: Acute Qualifiers: Back pain laterality: unspecified Back pain location: back pain in unspecified location Qualified Code(s): M54.9 - Dorsalgia, unspecified; G89.29 - Other chronic pain Category: Medical Code(s): M54.9 - Dorsalgia, unspecified; G89.29 - Other chronic pain Plan Patient's incisions are clean, dry, well-approximated with minimal erythema noted and sutures and sandra intact. I did discuss with the patient that in future if he continues to feel like his pump is not working as efficient as it was prior to the replacement that we can always look at doing a catheter dye study. I have counseled the patient that I do believe a lot of it is more that his incisional pain is overriding the intrathecal medication at this time. Patient was counseled that that pain should start to improve daily. Patient was counseled to continue his postop restrictions for the full 6 weeks. He acknowledges understanding and agrees with plan of care. I will refill the patient's diazepam and oxycodone and provide a 1 month supply of these medications. Patient will return to clinic in 4 weeks for reevaluation of symptoms and plan of care. Patient was counseled that we will plan on removing his sutures and sandra at that time. We will see the patient back in the clinic at the next intrathecal refill. Patient has been instructed to contact the clinic with any concerns before the next appointment. Dr. Santana has reviewed this note and agrees with this plan of care. This note was dictated using voice recognition software and make contain errors or omissions. -- It Is medically necessary for this patient to continue to have their intrathecal pump refilled at regular intervals. This patient had an intrathecal pain pump implanted after meeting criteria of chronic intractable pain for greater than 3 months and failing conservative treatments. Patient has committed and been compliant to the treatment plan and all planned follow up care. Since implantation of the intrathecal pain pump, the patient has had decreased pain and been more functional. Oral medications have been reduced including intake of oral opioids. Patient continues to do well with intrathecal therapy with decrease in pain symptoms and increase in functional status. Stopping intrathecal medications can lead to life threatening withdrawal, seizures, cardiac arrest, severe pain, and possible . Pumps that are not refilled at regular intervals can be damages and cause and need for replacement. We continually titrate dose and concentration to optimize pain relief and function. We are limited in concentration for certain drugs to safely deliver medications through the pump and stay within the recommendations from the Polyanalges[employer] Consensus Committee Guidelines. Depending on dose and concentration these pumps may need to be refilled sooner than 3 months as we titrate.
[2024-06-12 15:32] VITALS: BP 134/68; PULSE 87; RESP 18; O2SAT 98; BMI 22.1
== END 2024-06-12 23:59 | disposition home or self-care (01) ==
PROVIDERS: PCP Student in an Organized Health Care Education/Training Program; Visit Provider Nurse Practitioner Family
DX: M54.9 Dorsalgia, unspecified (principal); G89.29 Other chronic pain; F17.210 Nicotine dependence, cigarettes, uncomplicated; Z79.899 Other long term (current) drug therapy
CPT/HCPCS: 99212; G0463

== ENCOUNTER 2024-06-21 10:11 | Outpatient (POV) | payer MEDICARE, OTHER, SELFPAY ==
--- NOTE | 2024-06-21 10:42 | P.PCN_ITS ---
Procedure Date: 06/21/24 Time: 10:42 Anesthesiologist:: Mikayla Lee APRN Complications:: None Pre-procedure Diagnosis:: Degenerative disc disease of lumbar spine with lumbar radiculopathy symptoms Post-procedure Diagnosis:: Same Indications for Procedure:: Patient is a pleasant 73-year-old male who presents today for follow-up. Today he rates his pain a 9 out of 10. Patient states that he has been experiencing trouble urinating as well as feeling off balance in general. Patient states he has been having to hold onto objects as he is walking to prevent himself from falling. Patient states that he is not sure if it is the pump or the fact that he has been continuing to use his abdominal binder and that it is too tight. Patient states that he does have a urology history and did have a UroLift in the past however has not been back to that provider in some time. Patient is cu rrently managed with bupivacaine 25 mg/mL with a daily dose of 9.994 mg/day. He is also prescribed diazepam and oxycodone from our office. He denies any side effects from this medication and did just get a refill at his last visit. His Sharif has been reviewed and is appropriate. Physical Exam: General: Alert and oriented x3, no acute distress, pleasant and cooperative Lungs: Respirations even and unlabored, symmetrical chest expansion Eyes: PERRL Musculoskeletal: Flexion and extension of lumbar [spine] somewhat guarded secondary to pain, [antalgic gait noted] Neurological: Speech clear, no gross sensory deficit Procedure Details:: Informed consent was obtained and the risk and benefits of the procedure were explained to the patient. Patient was taken to the procedure room where noninvasive monitoring was placed including noninvasive blood pressure cuff and pulse oximeter. Patient's pump was interrogated and was reprogrammed to bu pivacaine 7.481 mg/day. The patient tolerated the procedure well with no complications. Plan and Disposition:: I did review over at length with the patient that we will decrease his pump by 25% and see if he does have improvement of his overall symptoms. I also discussed with the patient that I will order a UA to rule out UTI. Patient was reviewed over that at his upcoming appointment next Monday if he is still having the same issues I would like to send him to urology since he does have a prior history and there may be something else going on. Patient acknowledges understanding. Patient does state that his urine has been very dark and that it goes from 1 extreme to the other either he cannot pee or he feels like his urine is going to burst and he cannot get to the bathroom quick enough. Patient denies any incontinence. Patient will return to clinic in 1 week for intrathecal refill and reprogram as well as reevaluation of symptoms. We will see the patient back in the clinic at the next intrathecal refill. Patient has been instructed to contact the clinic with any concerns before the next appointment. Dr. Santana has reviewed this note and agrees with this plan of care. This note was dictated using voice recognition software and make contain errors or omissions. -- It Is medically necessary for this patient to continue to have their intrathecal pump refilled at regular intervals. This patient had an intrathecal pain pump implanted after meeting criteria of chronic intractable pain for greater than 3 months and failing conservative treatments. Patient has committed and been compliant to the treatment plan and all planned follow up care. Since implantation of the intrathecal pain pump, the patient has had decreased pain and been more functional. Oral medications have been reduced including intake of oral opioids. Patient continues to do well with intrathecal therapy with decrease in pain symptoms and increase in functional status. Stopping intrathecal medications can lead to life threatening withdrawal, seizures, cardiac arrest, severe pain, and possible . Pumps that are not refilled at regular intervals can be damages and cause and need for replacement. We continually titrate dose and concentration to optimize pain relief and function. We are limited in concentration for certain drugs to safely deliver medications through the pump and stay within the recommendations from the Polyanalgesic Consensus Committee Guidelines. Depending on dose and concentration these pumps may need to be refilled sooner than 3 months as we titrate.
[2024-06-21 10:55] LABS: Microscopic, Urine URINE MICROSCOPIC (MICROSCOPIC)
[2024-06-21 10:58] VITALS: BP 157/76; PULSE 80; RESP 16; O2SAT 98; BMI 22.1
[2024-06-21 11:57] LABS: Appearance,Urine CLEAR (Clear); Bilirubin,Urine Negative (Negative); Blood, Urine Negative (Negative); Color,Urine YELLOW (Yellow); Glucose,Urine (UA) Negative (Negative); Ketones,Urine Negative (Negative); Leukocyte Esterase,Urine Negative (Negative); Nitrate,Urine Negative (Negative); PH,Urine 6.5 (5.0-8.5); Protein,Urine Negative (Negative); Urobilinogen,Urine 0.2 EU/dl (0.2)
[2024-06-21 12:36] LABS: Bacteria,Urine Trace /lpf; Squamous Epithelial Cell,Urine Occasional #/hpf (0-5)
== END 2024-06-21 23:59 | disposition home or self-care (01) ==
PROVIDERS: PCP Student in an Organized Health Care Education/Training Program; Visit Provider Nurse Practitioner Family
DX: M51.16 Intervertebral disc disorders with radiculopathy, lumbar region (principal)
CPT/HCPCS: 62368; 81001; 99213; G0463

== ENCOUNTER 2024-06-28 11:04 | Day surgery (SDC) | payer MEDICARE, OTHER, SELFPAY ==
[2024-06-28 11:38] VITALS: BP 161/77; PULSE 74; RESP 16; TEMP 36.5; O2SAT 97; BMI 21.7
[2024-06-28 12:10] VITALS: BP 129/70; PULSE 74; RESP 18; O2SAT 95
[2024-06-28 12:12] VITALS: BP 129/70; PULSE 74; RESP 18; O2SAT 95
--- NOTE | 2024-06-28 12:26 | P.PCN_ITS ---
Procedure Date: 06/28/24 Time: 12:00 Anesthesiologist:: Remigio Cintron CRNA Complications:: None Pre-procedure Diagnosis:: Degenerative disc lumbar spine multilevels. Lumbar radiculopathy. Lumbar postlaminectomy syndrome. Lumbar spondylosis. Multilevel lumbar facet arthropathy. Post-procedure Diagnosis:: Same. Indications for Procedure:: Patient's pleasant 73-year-old male who comes our clinic today for intrathecal pain pump interrogation and refill. Patient currently being managed with bupivacaine 25 mg/mL at a rate of 7.481 mg/day. He is doing very well with his current settings. He is not requesting any changes. He does not reporting side effects or complications. Patient had intrathecal pain pump exchange 4 weeks ago. Bereket were removed. Steri-Strips applied. All incision sites are clean and dry. No sign of infection. Patient is awake alert [place] x 3. In no acute distress. Flexion-extension lumbar spine somewhat guarded secondary to pain. Deep tendon reflexes upper lower extremities normal. Motor strength upper lower extremities normal. There is no gross sensory deficit. Gait is normal. Procedure Details:: Details of the procedure explained to the patient. The patient taken procedure and placed in sitting position. They over the pumps cleansed using chlorhexidine as a cleansing solution. The pump was interrogated. The pump was accessed with ease using a 22-gauge inch and half needle. 8 mL of solution was withdrawn discarded appropriate. The pump was then filled with 20 cc of solution containing bupivacaine 25 mg/mL. No change in pump rate. Patient tolerated procedure without difficulty. There are no complications. Plan and Disposition:: Patient was discharged without incident.
[2024-06-28 12:32] VITALS: BP 149/76; PULSE 85; RESP 16; O2SAT 96
== END 2024-06-28 12:32 | disposition home or self-care (01) ==
PROVIDERS: PCP Student in an Organized Health Care Education/Training Program; Visit Provider Nurse Anesthetist, Certified Registered
DX: M51.16 Intervertebral disc disorders with radiculopathy, lumbar region (principal); M96.1 Postlaminectomy syndrome, not elsewhere classified; M47.26 Other spondylosis with radiculopathy, lumbar region
CPT/HCPCS: 95991

== ENCOUNTER 2024-07-15 10:02 | Outpatient (POV) | payer MEDICARE, OTHER, SELFPAY ==
[2024-07-15 10:32] VITALS: BP 160/80; PULSE 78; RESP 18; O2SAT 100; BMI 22.1
--- NOTE | 2024-07-15 13:09 | EXP.PAIN.PRO ---
Procedure Date: 07/15/24 Time: 10:15 Anesthesiologist:: Mikayla Lee APRN Complications:: None Pre-procedure Diagnosis:: Degenerative disc disease of lumbar spine with lumbar radiculopathy symptoms, lumbar postlaminectomy syndrome, lumbar facet arthropathy, sacroiliitis Post-procedure Diagnosis:: Same Indications for Procedure:: Patient is a pleasant 74-year-old male who presents today for worsening symptoms. Today he rates his pain a 7 out of 10. Patient states that he has been very weak and that he has increased numbness and weakness throughout his legs as well as some urinary retention. Patient does have a history of UroLift however feels like it has gotten worse. Patient states that he will get down and he just cannot get up due to the worsening pain. He states that the weakness is all over and he continues to have the chronic low back pain that is tender to touch. Patient states that the boluses seem to make the numbness and weakness worse he has felt like he has had to crawl around due to the symptoms and feels like his legs can give out at any time. Patient is currently managed with bupivacaine 25 milligrams per mL with a daily dose of 7.481 mg/day. Patient is also managed with diazepam and oxycodone. Patient does state that he has had to use his diazepam to deal with these worsening symptoms and he does need refills. His Sharif has been reviewed and is appropriate. Physical Exam: General: Alert and oriented x3, no acute distress, pleasant and cooperative Lungs: Respirations even and unlabored, symmetrical chest expansion Eyes: PERRL Musculoskeletal: Flexion and extension of lumbar [spine] somewhat guarded secondary to pain, [antalgic gait noted] point tenderness along bilateral SIs with positive bilateral Delvin's, Celso's, Gaenslen's, compression and distraction exam Neurological: Speech clear, no gross sensory deficit Procedure Details:: Informed consent was obtained and the risk and benefits of the procedure were explained to the patient. Patient was taken to the procedure room where noninvasive monitoring was placed including noninvasive blood pressure cuff and pulse oximeter. Patient's pump was interrogated and was reprogrammed to bupivacaine 5.984 mg/day. The patient tolerated the procedure well with no complications. Plan and Disposition:: Patient tolerated his intrathecal decrease with no complications and was discharged neurologically intact. I did discuss with the patient due to his worsening symptoms that would like to continue to monitor in case we need to make additional decreases. I did discuss with the patient that he may benefit with baclofen added to his pump however I will send in a 30-day supply of baclofen 10 mg 3 times daily first and see how he does with the oral medication before proceeding forward with the intrathecal change. Patient did also have significant point tenderness along his bilateral SIs and a positive bilateral Delvin's, Celso's, Gaenslen's, compression and distraction exam. I did discuss with patient that I do believe he would benefit from bilateral SI injections. Risk and benefits were discussed with the patient and he would like to proceed forward with this plan of care. Patient has tried and failed conservative therapy including continued at home stretching exercise for longer than 12 weeks. Patient will be scheduled for bilateral SI injections under fluoroscopy. Patient is coming up due for his oral medications of the oxycodone 10 mg 6 times a day and the diazepam daily. We will go ahead and send a prescription of both of these in. Patient has been instructed to contact the clinic with any concerns before the next appointment. Dr. Santana has reviewed this note and agrees with this plan of care. This note was dictated using voice recognition software and make contain errors or omissions. All injections are used with Lidocaine or Bupivacaine and Depo Medrol.
== END 2024-07-15 23:59 | disposition home or self-care (01) ==
PROVIDERS: PCP Student in an Organized Health Care Education/Training Program; Visit Provider Nurse Practitioner Family
DX: M51.16 Intervertebral disc disorders with radiculopathy, lumbar region (principal); M96.1 Postlaminectomy syndrome, not elsewhere classified; M47.26 Other spondylosis with radiculopathy, lumbar region; M46.1 Sacroiliitis, not elsewhere classified
CPT/HCPCS: 62368; 99213; G0463

== ENCOUNTER 2024-07-23 12:07 | Day surgery (SDC) | payer MEDICARE, OTHER, SELFPAY ==
[2024-07-23 12:11] VITALS: BP 168/77; PULSE 87; RESP 16; TEMP 36.6; O2SAT 99; BMI 22.1
[2024-07-23 12:42] VITALS: BP 134/53; PULSE 53; RESP 18; O2SAT 97
[2024-07-23 12:43] VITALS: BP 134/53; PULSE 78; RESP 18; O2SAT 98
[2024-07-23 13:13] VITALS: BP 140/90; PULSE 83; RESP 16; O2SAT 97
--- NOTE | 2024-07-23 13:23 | EXP.PAIN.PRO ---
Procedure Date: 07/23/24 Time: 11:55 Anesthesiologist:: Remigio Cintron CRNA Complications:: None Pre-procedure Diagnosis:: Degenerative disc lumbar spine multilevels. Lumbar radiculopathy. Lumbar postlaminectomy syndrome. Lumbar spondylosis. Multilevel lumbar facet arthropathy Post-procedure Diagnosis:: Same. Indications for Procedure:: Patient is a very pleasant 74-year-old male who comes our clinic today for intrathecal pain pump interrogation and refill. Patient currently being managed with bupivacaine 25 mg/mL at a rate of 5.984 mg/day. He is doing very well with his current pump rate. However, he reports after taking a bolus of bupivacaine 1 mg his legs are numb. He is unable to ambulate. I will decrease his bolus to 0.5 mg. Currently his bolus time is 3 minutes. I will increase the bolus time to 5 minutes. He will report back in 2 weeks for adjustment if necessary. Patient is awake alert [place] x 3. No acute distress. Flexion tension lumbar spine somewhat guarded secondary to pain. Deep tendon reflexes upper and lower extremities normal. Motor strength upper and lower extremities normal. There is no gross sensory deficit. Gait is normal. Procedure Details:: Details of the procedure explained to the patient. The patient taken the procedure room placed in sitting position. They over the pump was cleansed using chlorhexidine as a cleansing solution. The pump was interrogated. The pump was accessed with ease using a 22-gauge inch and a half needle. 11 mL of solution was withdrawn discarded appropriate. The pump was then filled 20 cc of solution containing bupivacaine 25 mg/mL. No change in pump rate. Bolus rate will be cut in half to 0.5 mg. Bolus time will be increased to 5 minutes. Patient tolerated procedure without difficulty. There are no complications. Plan and Disposition:: Patient was discharged without incident.
== END 2024-07-23 13:14 | disposition home or self-care (01) ==
PROVIDERS: PCP Student in an Organized Health Care Education/Training Program; Visit Provider Nurse Anesthetist, Certified Registered
DX: M51.16 Intervertebral disc disorders with radiculopathy, lumbar region (principal); M96.1 Postlaminectomy syndrome, not elsewhere classified; M47.26 Other spondylosis with radiculopathy, lumbar region
CPT/HCPCS: 62370

== ENCOUNTER 2024-08-30 09:56 | Day surgery (SDC) | payer MEDICARE, OTHER, SELFPAY ==
--- NOTE | 2024-08-30 10:06 | P.PCN_ITS ---
Procedure Date: 08/30/24 Time: 10:41 Anesthesiologist:: Mikayla Lee APRN Complications:: None Pre-procedure Diagnosis:: Degenerative disc disease of lumbar spine with lumbar radiculopathy symptoms Post-procedure Diagnosis:: Same Indications for Procedure:: Patient is a pleasant 74-year-old male who presents today for intrathecal refill and reprogram. Today he rates his pain a 8 Out of 10. He does state he has recently had a fall on but it was related to his 2 dogs and that he denies any significant injury. Patient is currently managed with bupivacaine 25 mg/mL. He denies any side effects from this medication.Patient is also prescribed diazepam 5 mg daily and oxycodone 10 mg 6 times a day from our office. He denies any side effects from this medication. His Sharif has been reviewed and is appropriate. Physical Exam: General: Alert and oriented x3, no acute distress, pleasant and cooperative Lungs: Respirations even and unlabored, symmetrical chest expansion Eyes: PERRL Musculoskeletal: Flexion and extension of lumbar [spine] somewhat guarded secondary to pain, [antalgic gait noted] Neurological: Speech clear, no gross sensory deficit Procedure Details:: Informed consent was obtained and the risk and benefits of the procedure were explained to the patient. The patient had noninvasive monitoring placed including noninvasive blood pressure cuff and pulse oximeter. Patient's pump was interrogated. The area over the pump was cleansed with chlorhexidine as a cleansing solution. In sterile fashion the pump was accessed with a 22-gauge needle. Approximately 10 mls of the pump solution was removed and discarded appropriately. The pump was then refilled with 20 mL's of bupivacaine 25 mg/mL. The needle was withdrawn and a bandage was placed over the puncture site. The infusion rate was reprogrammed and continued at bupivacaine 5.984 mg/day. The patient tolerated well with no complication. Plan and Disposition:: Patient tolerated his procedure well with no complications and was discharged neurologically intact. Patient will return to clinic for his next intrathecal refill date on or before October 17 however he will also return to clinic in 2 weeks for his oral medication refill date. We will see the patient back in the clinic at the next intrathecal refill. Patient has been instructed to contact the clinic with any concerns before the next appointment. Dr. Santana has reviewed this note and agrees with this plan of care. This note was dictated using voice recognition software and make contain errors or omissions. -- It Is medically necessary for this patient to continue to have their intrathecal pump refilled at regular intervals. This patient had an intrathecal pain pump implanted after meeting criteria of chronic intractable pain for greater than 3 months and failing conservative treatments. Patient has committed and been compliant to the treatment plan and all planned follow up care. Since implantation of the intrathecal pain pump, the patient has had decreased pain and been more functional. Oral medications have been reduced including intake of oral opioids. Patient continues to do well with intrathecal therapy with decr ease in pain symptoms and increase in functional status. Stopping intrathecal medications can lead to life threatening withdrawal, seizures, cardiac arrest, severe pain, and possible . Pumps that are not refilled at regular intervals can be damages and cause and need for replacement. We continually titrate dose and concentration to optimize pain relief and function. We are limited in concentration for certain drugs to safely deliver medications through the pump and stay within the recommendations from the Polyanalgesic Consensus Committee Guidelines. Depending on dose and concentration these pumps may need to be refilled sooner than 3 months as we titrate. A UDS is needed to verify patient's compliance with our office pain contract. This is ordered based off specific treatments related to chronic pain with the potential to abuse certain medications.
[2024-08-30 10:15] VITALS: BP 148/54; PULSE 68; RESP 16; O2SAT 99; BMI 22.1
[2024-08-30 10:52] VITALS: BP 130/71; PULSE 70; RESP 16; O2SAT 98
== END 2024-08-30 10:52 | disposition home or self-care (01) ==
LOC: SC.PAINP 10:08 → SC.PAIN 10:35
PROVIDERS: PCP Student in an Organized Health Care Education/Training Program; Visit Provider Nurse Practitioner Family
DX: M51.16 Intervertebral disc disorders with radiculopathy, lumbar region (principal)
CPT/HCPCS: 62370

== ENCOUNTER 2024-09-20 12:46 | Outpatient (POV) | payer MEDICARE, OTHER, SELFPAY ==
[2024-09-20 13:43] VITALS: BP 135/76; PULSE 95; RESP 16; O2SAT 98; BMI 23.1
--- NOTE | 2024-09-20 14:09 | A.OFFVIS_ITS ---
[facility] Disclaimer: The information contained in this section may have been updated after the patient was seen, as this information can be updated by other users. Medical History Foot pain, bilateral Staph infection Anxiety Family history of prostate problems Degenerative disc disease Back pain Hypertension Anemia Surgical History History of tonsillectomy History of gastric surgery History of bilateral knee replacement Previous back surgery History of right shoulder replacement Family History Other Family history of cancer Family history of diabetes mellitus Family history of heart disease Social History Smoking Status: Current every day smoker tobacco type: cigarettes packs per day: 1 alcohol intake: never current occupational status: other Travel in the last 8 weeks: None household members: spouse housing: house current occupational exposures/hazards: No caffeine: Yes Have you lived/traveled outside [place] in past 30 days?: No Contact w/someone who lives/traveled outside US past 30 days?: No Exposure to someone with infectious disease in past 14 days?: No Do you have a fever (greater than 100.4 F or 38 C)?: No Have you tested positive for COVID-19: No Exposed to someone with COVID-19 in past 14 days?: No Do you have a sore throat?: No Do you have a cough?: No Do you have any weakness?: No Do you have any diarrhea?: No Are you experiencing any unusual bleeding?: No Do you have any muscle aches/pain?: No Do you have any abdominal pain?: No Are you experiencing loss of taste or smell?: No PM Subjective & Objective Subjective Subjective:: Patient is a pleasant 74-year-old male who presents today for medication refill and follow-up. Today he rates his pain a 9 out of 10. He denies any new injury or trauma. He does state that today is just not a good day and that he has been experiencing more spasms and cramping that are in his hands and legs. Patient is currently managed with bupivacaine 25 mg/mL with a daily dose of 5.984 mg/day. He denies any side effects from this medication. Patient is also managed with oxycodone 10 mg 6 times a day and diazepam 5 mg daily from our office. He denies any side effects from this medication. His Sharif has been reviewed and is appropriate. Review of Systems: General: No recent weight changes, no fever, no sleep disturbances Respiratory: No cough, no shortness of air, no recurring pulmonary infections Cardiovascular/peripheral vascular: No chest pain, no palpitations, no edema, no shortness of breath Gastrointestinal: No new onset incontinence, normal bowel movements reported Genitourinary: No new onset incontinence Musculoskeletal: Low back pain, arm and leg spasms/cramping Psychiatric: [Normal mood/affect] Neurological: [Denies weakness in extremities], [denies balance issues] Pain at rest (0-10 scale): 9 Objective Objective:: Physical Exam: General: Alert and oriented x3, no acute distress, pleasant and cooperative Lungs: Respirations even and unlabored, symmetrical chest expansion Eyes: PERRL Musculoskeletal: Flexion and extension of lumbar [spine] somewhat guarded secondary to pain, [antalgic gait noted] Neurological: Speech clear, no gross sensory deficit Has patient had previous pain injection?: No Conservative treatment options previously tried: Prescription medications Length of treatment: Longer than 12 weeks Meds Home Medications and Allergies Home Medications ?Medication ?Instructions ?Recorded ?Confirmed ?Type amlodipine 10 mg tablet 10 mg PO DAILY blood pressure 12/30/20 09/20/24 History duloxetine 60 mg capsule,delayed 60 mg PO DAILY mood 12/30/20 09/20/24 History release esomeprazole magnesium 40 mg 40 mg PO DAILY GERD 12/30/20 09/20/24 History capsule,delayed release lisinopril 40 mg tablet 40 mg PO DAILY blood pressure 12/30/20 09/20/24 History pregabalin 300 mg capsule 300 mg PO BID nerve pain 12/30/20 09/20/24 History tamsulosin 0.4 mg capsule 0.4 mg PO HS BPH 12/30/20 09/20/24 History topiramate 100 mg tablet 100 mg PO TID PRN Migraine Headache 12/30/20 09/20/24 History bupivacaine (PF) 0.5 % (5 mg/mL) 3.6 mg intrathecal Q2HP PRN 02/25/21 09/20/24 History injection solution chronic pain naloxone 4 mg/actuation nasal spray 4 mg intranasal ONCE PRN 06/21/21 09/20/24 Rx oversedation 30 days #2 mL trazodone 50 mg tablet 50 - 100 mg PO HS Insomnia 08/30/21 09/20/24 History ascorbic acid (vitamin C) 100 mg 100 mg PO DAILY Supplement 11/22/21 09/20/24 History tablet calcium 250 mg (as 1 each PO DAILY Supplement 11/22/21 09/20/24 History carbonate)-vitamin D3 3.125 mcg (125 unit) tablet cetirizine 10 mg tablet 10 mg PO DAILY allergies 11/22/21 09/20/24 History dicyclomine 20 mg tablet 20 mg PO QID . 11/22/21 09/20/24 History ferrous sulfate 325 mg (65 mg 325 mg PO DAILY Supplement 11/22/21 09/20/24 History iron) tablet magnesium glycinate 100 mg (as 100 mg PO DAILY Supplement 11/22/21 09/20/24 History glycinate) tablet multivitamin 1 each PO DAILY Supplement 11/22/21 09/20/24 History naloxegol 25 mg tablet 25 mg PO DAILY Constipation 11/22/21 09/20/24 History omega-3 fatty acids-fish oil 684 1 each PO DAILY Supplement 11/22/21 09/20/24 History mg-1,200 mg capsule,delayed release sumatriptan succinate 100 mg tablet 100 mg PO NEEDED PRN Migraine 02/25/22 09/20/24 History Headache naloxone 4 mg/actuation nasal 4 mg intranasal Q3M PRN opioid 10/05/23 09/20/24 Rx spray (Narcan) overdose #2 ea baclofen 10 mg tablet 10 mg PO TID #90 tabs 07/15/24 09/20/24 Rx oxycodone 10 mg tablet 10 mg PO Q4H Pain #180 tabs 07/23/24 09/20/24 Rx diazepam 5 mg tablet 5 mg PO DAILY Anxiety #30 tabs 08/22/24 09/20/24 Rx New Prescriptions to Start Prescriptions: Allergies Allergy/AdvReac Type Severity Reaction Status Date / Time cortisone Allergy Intermediate Diarrhea Verified 06/07/24 09:31 codeine (CODEINE) Allergy Unknown STOMACH Verified 04/16/24 14:10 CRAMPING methocarbamol AdvReac Intermediate Rash Verified 06/07/24 09:31 [email or web address] (From Myrbetriq) AdvReac Intermediate Rash Verified 06/07/24 09:31 Assessment and Plan *Assessment and plan (1) Chronic back pain: Status: Acute Qualifiers: Back pain laterality: unspecified Back pain location: back pain in unspecified location Qualified Code(s): M54.9 - Dorsalgia, unspecified; G89.29 - Other chronic pain Category: Medical Code(s): M54.9 - Dorsalgia, unspecified; G89.29 - Other chronic pain Plan We will refill the patient's oxycodone and diazepam and provide a 1 month supply of this medication. I did review over with the patient that the spasms and cramping could be related to possible electrolyte imbalances. I will order the patient a CBC and CMP. He does state that he does take potassium and magnesium on a regular basis. Patient does already have his intrathecal refill date around October 11. We will keep this appointment and I did discuss with him that if there are any significant abnormalities in his labs I will call him and let him know otherwise we will follow-up with him at his pump date. Risks and benefits of the medication have been explained in detail to the patient. The patient does understand the risk of dependence on the medication when given over a prolonged period. Patient has been advised of risks of oversedation with the prescribed medication. Narcan has been offered to the paitent in the event of oversedation. Patient has been advised that a family member should also be educated regarding administration of Narcan. The patient has been advised to consult with his/her primary care provider and pharmacist regarding drug-drug interaction of medications currently prescribed. Patient has been prescribed a controlled substance after being counseled on the medication, medication safety, and possible side effects. Opioid contract was reviewed and signed by the patient, and that they have agreed to all of the terms set forth by our compliance program. A UDS is needed to verify patient's compliance with our office pain contract. This is ordered based off specific treatments related to chronic pain with the potential to abuse certain medications. Patient has been instructed to contact the clinic with any concerns before the next appointment. Dr. Santana has reviewed this note and agrees with this plan of care. This note was dictated using voice recognition software and make contain errors or omissions.
[2024-09-20 14:32] LABS: Basophils # 0.1 K/mm3 (0-0.2); Basophils % 1.1 % (0.1-2.0); Eosinophils # 0.2 K/mm3 (0.0-0.4); Eosinophils % 2.9 % (0.1-12.0); Hematocrit 42.5 % (42.0-52.0); Hemoglobin 14.5 g/dL (14.1-18.0); Lymphocytes # 1.8 K/mm3 (0.7-4.5); Lymphocytes % 28.5 % (10-50); Mean Corpuscular HGB Conc 34.1 g/dL (31.8-35.4); Mean Corpuscular Hemoglobin 30.3 pg (27.0-31.2); Mean Corpuscular Volume 88.7 fl (80-94); Mean Platelet Volume 12.9 fl (7.4-10.4); Monocytes # 0.4 K/mm3 (0.1-1.0); Monocytes % 6.3 % (1.7-9.3); Neutrophils # 3.8 K/mm3 (1.8-7.8); Neutrophils % 60.7 % (37.0-80.0); Platelet Count 132 K/mm3 (142-424); Red Blood Count 4.79 M/mm3 (4.60-6.20); Red Cell Distribution Width 13.8 % (11.5-17.5); White Blood Count 6.2 K/mm3 (4.8-10.8)
[2024-09-20 14:55] LABS: Chloride 108 mmol/L (98-107); Potassium 4.4 mmoL/L (3.5-5.1); Sodium 140 mmol/L (136-145)
[2024-09-20 14:58] LABS: Alanine Aminotransferase 20 U/L (12-78); Alkaline Phosphatase 138 U/L (38-126); Aspartate Amino Transferase 27 U/L (17-59); Bilirubin,Total 0.4 mg/dl (0.2-1.3); Blood Urea Nitrogen 17 mg/dl (9-20); Calcium 8.9 mg/dl (8.4-10.2); Creatinine Clearance Estimated 66 mL/min (50-200); Estimated Glomerular Filt Rate 111 ml/min (>60); GFR (African American) 134 ML/MIN (>60); Glucose 95 mg/dl (74-100); Total Protein,Serum 6.4 g/dl (6.3-8.2)
[2024-09-20 15:07] LABS: Albumin Level 4.2 g/dl (3.5-5.0); Albumin/Globulin Ratio 1.9 (1.1-1.8); Anion Gap 12.4 mEq/L (5-15); Carbon Dioxide 24 mmol/L (22.0-30.0); Globulin 2.2 g/dL (1.3-3.2)
== END 2024-09-20 23:59 | disposition home or self-care (01) ==
PROVIDERS: PCP Student in an Organized Health Care Education/Training Program; Visit Provider Nurse Practitioner Family
DX: R25.2 Cramp and spasm (principal); M54.9 Dorsalgia, unspecified; G89.29 Other chronic pain; Z96.653 Presence of artificial knee joint, bilateral; Z96.611 Presence of right artificial shoulder joint; F17.210 Nicotine dependence, cigarettes, uncomplicated; Z79.899 Other long term (current) drug therapy
CPT/HCPCS: 36415; 80053; 85025; 99212; G0463

== ENCOUNTER 2024-10-11 10:20 | Day surgery (SDC) | payer MEDICARE, OTHER, SELFPAY ==
--- NOTE | 2024-10-11 10:30 | EXP.PAIN.PRO ---
Procedure Date: 10/11/24 Time: 10:43 Anesthesiologist:: Mikayla Lee APRN Complications:: None Pre-procedure Diagnosis:: degenerative disc disease lumbar spine with lumbar radiculopathy Post-procedure Diagnosis:: same Indications for Procedure:: Patient is a pleasant 74-year-old male who presents today for intrathecal refill and reprogram. Today he rates his pain a 8 out of 10. He denies any new fall or injury. Patient is currently managed with bupivacaine 25 mg/mL. He denies any side effects from this medication but is requesting an increase.Patient is also prescribed diazepam 5 mg daily and oxycodone 10 mg 6 times a day from our office. He denies any side effects from this medication. His Sharif has been reviewed and is appropriate. Physical Exam: General: Alert and oriented x3, no acute distress, pleasant and cooperative Lungs: Respirations even and unlabored, symmetrical chest expansion Eyes: PERRL Musculoskeletal: Flexion and extension of lumbar [spine] somewhat guarded secondary to pain, [antalgic gait noted] Neurological: Speech clear, no gross sensory deficit Procedure Details:: Informed consent was obtained and the risk and benefits of the procedure were explained to the patient. The patient had noninvasive monitoring placed including noninvasive blood pressure cuff and pulse oximeter. Patient's pump was interrogated. The area over the pump was cleansed with chlorhexidine as a cleansing solution. In sterile fashion the pump was accessed with a 22-gauge needle. Approximately 9 mls of the pump solution was removed and discarded appropriately. The pump was then refilled with 20 mL's of bupivacaine 25 mg/mL. The needle was withdrawn and a bandage was placed over the puncture site. The infusion rate was reprogrammed and increased at bupivacaine 6.284 mg/day. The patient tolerated well with no complication. Plan and Disposition:: Patient tolerated his procedure well with no complications and was discharged neurologically intact. Patient will return to clinic for his next intrathecal refill date. We will see the patient back in the clinic at the next intrathecal refill. Patient has been instructed to contact the clinic with any concerns before the next appointment. Dr. Santana has reviewed this note and agrees with this plan of care. This note was dictated using voice recognition software and make contain errors or omissions. -- It Is medically necessary for this patient to continue to have their intrathecal pump refilled at regular intervals. This patient had an intrathecal pain pump implanted after meeting criteria of chronic intractable pain for greater than 3 months and failing conservative treatments. Patient has committed and been compliant to the treatment plan and all planned follow up care. Since implantation of the intrathecal pain pump, the patient has had decreased pain and been more functional. Oral medications have been reduced including intake of oral opioids. Patient continues to do well with intrathecal therapy with decrease in pain symptoms and increase in functional status. Stopping intrathecal medications can lead to life threatening withdrawal, seizures, cardiac arrest, severe pain, and possible . Pumps that are not refilled at regular intervals can be damages and cause and need for replacement. We continually titrate dose and concentration to optimize pain relief and function. We are limited in concentration for certain drugs to safely deliver medications through the pump and stay within the recommendations from the [employer] Consensus [employer] Guidelines. Depending on dose and concentration these pumps may need to be refilled sooner than 3 months as we titrate. A UDS is needed to verify patient's compliance with our office pain contract. This is ordered based off specific treatments related to chronic pain with the potential to abuse certain medications.
[2024-10-11 10:33] VITALS: BP 149/71; PULSE 77; RESP 16; TEMP 36.8; O2SAT 98; BMI 14.8
[2024-10-11 10:39] VITALS: BP 155/79; PULSE 74; RESP 18; O2SAT 97
[2024-10-11 10:40] VITALS: BP 155/79; PULSE 74; RESP 18; O2SAT 97
[2024-10-11 10:55] VITALS: BP 137/84; PULSE 71; RESP 16; O2SAT 98
== END 2024-10-11 10:55 | disposition home or self-care (01) ==
PROVIDERS: PCP Student in an Organized Health Care Education/Training Program; Visit Provider Nurse Practitioner Family
DX: M51.16 Intervertebral disc disorders with radiculopathy, lumbar region (principal)
CPT/HCPCS: 62370

== ENCOUNTER 2024-11-22 10:25 | Day surgery (SDC) | payer MEDICARE, OTHER, SELFPAY ==
[2024-11-22 10:40] VITALS: BP 161/67; PULSE 75; RESP 16; TEMP 36.8; O2SAT 98; BMI 22.1
--- NOTE | 2024-11-22 11:06 | EXP.PAIN.PRO ---
Procedure Date: 11/22/24 Time: 11:33 Anesthesiologist:: Mikayla Lee APRN Complications:: None Pre-procedure Diagnosis:: Degenerative disc disease of lumbar spine with lumbar radiculopathy symptoms Post-procedure Diagnosis:: Same Indications for Procedure:: Patient is a pleasant 74-year-old male who presents today for intrathecal refill and reprogram. Today he rates his pain an 8 out of 10. He denies any changes from her last visit. He is currently managed with bupivacaine 25 mg/mL with a daily dose of 6.284 mg/day. He is also prescribed diazepam 5 mg daily and oxycodone 10 mg 6 times a day. He denies any side effects. His Sharif has been reviewed and is appropriate. Physical Exam: General: Alert and oriented x3, no acute distress, pleasant and cooperative Lungs: Respirations even and unlabored, symmetrical chest expansion Eyes: PERRL Musculoskeletal: Flexion and extension of lumbar [spine] somewhat guarded secondary to pain, [antalgic gait noted] Neurological: Speech clear, no gross sensory deficit Procedure Details:: Informed consent was obtained and the risk and benefits of the procedure were explained to the patient. The patient had noninvasive monitoring placed including noninvasive blood pressure cuff and pulse oximeter. Patient's pump was interrogated. The area over the pump was cleansed with chlorhexidine as a cleansing solution. In sterile fashion the pump was accessed with a 22-gauge needle. Approximately 9 mls of the pump solution was removed and discarded appropriately. The pump was then refilled with 20 mL's of bupivacaine 25 mg/mL. The needle was withdrawn and a bandage was placed over the puncture site. The infusion rate was reprogrammed and changed to flex dosing with bupivacaine 6.415 mg/day. The patient tolerated well with no complication. Plan and Disposition:: Patient tolerated the procedure well with no complications and was discharged neurologically intact. Patient did have complaints that he really did not notice significant improvement with the current medication. We are going to switch him to flex dosing. Patient was counseled that he will not be able to use his bolus device while he is with flex dosing. Patient was given a 1 week follow-up in case he does not like the dosing and wants to go back to continuous but he was also counseled he can cancel this appointment if he is doing well. I will refill his diazepam and oxycodone and provide a 1 month supply of this medication. Patient will return to clinic on or before their next intrathecal refill date. We will see the patient back in the clinic at the next intrathecal refill. Patient has been instructed to contact the clinic with any concerns before the next appointment. Dr. Santana has reviewed this note and agrees with this plan of care. This note was dictated using voice recognition software and make contain errors or omissions. -- It Is medically necessary for this patient to continue to have their intrathecal pump refilled at regular intervals. This patient had an intrathecal pain pump implanted after meeting criteria of chronic intractable pain for greater than 3 months and failing conservative treatments. Patient has committed and been compliant to the treatment plan and all planned follow up care. Since implantation of the intrathecal pain pump, the patient has had decreased pain and been more functional. Oral medications have been reduced including intake of oral opioids. Patient continues to do well with intrathecal therapy with decrease in pain symptoms and increase in functional status. Stopping intrathecal medications can lead to life threatening withdrawal, seizures, cardiac arrest, severe pain, and possible . Pumps that are not refilled at regular intervals can be damages and cause and need for replacement. We continually titrate dose and concentration to optimize pain relief and function. We are limited in concentration for certain drugs to safely deliver medications through the pump and stay within the recommendations from the Polyanalges[employer] Consensus Committee Guidelines. Depending on dose and concentration these pumps may need to be refilled sooner than 3 months as we titrate. A UDS is needed to verify patient's compliance with our office pain contract. This is ordered based off specific treatments related to chronic pain with the potential to abuse certain medications.
[2024-11-22 11:13] VITALS: BP 133/90; PULSE 72; RESP 18; O2SAT 96
[2024-11-22 11:44] VITALS: BP 133/90; PULSE 72; RESP 18; O2SAT 96
[2024-11-22 11:53] VITALS: BP 126/74; PULSE 77; RESP 16; O2SAT 98
== END 2024-11-22 11:54 | disposition home or self-care (01) ==
PROVIDERS: PCP Student in an Organized Health Care Education/Training Program; Visit Provider Nurse Practitioner Family
DX: M51.16 Intervertebral disc disorders with radiculopathy, lumbar region (principal)
CPT/HCPCS: 62370

== ENCOUNTER 2025-01-16 13:12 | Day surgery (SDC) | payer MEDICARE, OTHER, SELFPAY ==
[2025-01-16 13:10] VITALS: BP 138/69; PULSE 76; RESP 16; O2SAT 97; BMI 23.6
--- NOTE | 2025-01-16 13:23 | P.HP_ITS ---
History of Present Illness *Admission Date: 01/16/25 *Reason for visit:: Intrathecal refill; DDD *History of present illness: Same [facility] Disclaimer: The information contained in this section may have been updated after the patient was seen, as this information can be updated by other users. Medical History (Updated 01/16/25 @ 13:24 by Mikayla Lee APRN) Foot pain, bilateral Staph infection Anxiety Family history of prostate problems Degenerative disc disease Back pain Hypertension Anemia Surgical History History of tonsillectomy History of gastric surgery History of bilateral knee replacement Previous back surgery History of right shoulder replacement Family History Other Family history of cancer Family history of diabetes mellitus Family history of heart disease Social History Smoking Status: Current every day smoker tobacco type: cigarettes packs per day: 1 alcohol intake: never current occupational status: other Travel in the last 8 weeks?: None household members: spouse housing: house current occupational exposures/hazards: No caffeine: Yes Have you lived/traveled outside [place] in past 30 days?: No Contact w/someone who lives/traveled outside [place] past 30 days?: No Exposure to someone with infectious disease in past 14 days?: No Do you have a fever (greater than 100.4 F or 38 C)?: No Have you tested positive for COVID-19?: No Exposed to someone with COVID-19 in past 14 days?: No Do you have a sore throat?: No Do you have a cough?: No Do you have any weakness?: No Do you have any diarrhea?: No Are you experiencing any unusual bleeding?: No Do you have any muscle aches/pain?: No Do you have any abdominal pain?: No Are you experiencing loss of taste or smell?: No Other Medical History Have you received the Flu Vaccine for this season: No Have you received the Pneumonia Vaccine: No Review of Systems Review of Systems Review of systems:: pertinent systems reviewed and negative unless documented below Review of systems (narrative): Review of Systems: General: No recent weight changes, no fever, no sleep disturbances Respiratory: No cough, no shortness of air, no recurring pulmonary infections Cardiovascular/peripheral vascular: No chest pain, no palpitations, no edema, no shortness of breath Gastrointestinal: No new onset incontinence, normal bowel movements reported Genitourinary: No new onset incontinence Musculoskeletal: Chronic back pain Psychiatric: [Normal mood/affect] Neurological: [Denies weakness in extremities], [denies balance issues] Meds Home Medications and Allergies Home Medications ?Medication ?Instructions ?Recorded ?Confirmed ?Type amlodipine 10 mg tablet 10 mg PO DAILY blood pressure 12/30/20 10/11/24 History duloxetine 60 mg capsule,delayed 60 mg PO DAILY mood 12/30/20 10/11/24 History release esomeprazole magnesium 40 mg 40 mg PO DAILY GERD 12/30/20 10/11/24 History capsule,delayed release lisinopril 40 mg tablet 40 mg PO DAILY blood pressure 12/30/20 10/11/24 History pregabalin 300 mg capsule 300 mg PO BID nerve pain 12/30/20 10/11/24 History tamsulosin 0.4 mg capsule 0.4 mg PO HS BPH 12/30/20 10/11/24 History topiramate 100 mg tablet 100 mg PO TID PRN Migraine Headache 12/30/20 10/11/24 History bupivacaine (PF) 0.5 % (5 mg/mL) 3.6 mg intrathecal Q2HP PRN 02/25/21 10/11/24 History injection solution chronic pain naloxone 4 mg/actuation nasal spray 4 mg intranasal ONCE PRN 06/21/21 10/11/24 Rx oversedation 30 days #2 mL trazodone 50 mg tablet 50 - 100 mg PO HS Insomnia 08/30/21 10/11/24 History ascorbic acid (vitamin C) 100 mg 100 mg PO DAILY Supplement 11/22/21 10/11/24 History tablet calcium 250 mg (as 1 each PO DAILY Supplement 11/22/21 10/11/24 History carbonate)-vitamin D3 3.125 mcg (125 unit) tablet cetirizine 10 mg tablet 10 mg PO DAILY allergies 11/22/21 10/11/24 History dicyclomine 20 mg tablet 20 mg PO QID . 11/22/21 10/11/24 History ferrous sulfate 325 mg (65 mg 325 mg PO DAILY Supplement 11/22/21 10/11/24 History iron) tablet magnesium glycinate 100 mg (as 100 mg PO DAILY Supplement 11/22/21 10/11/24 History glycinate) tablet multivitamin 1 each PO DAILY Supplement 11/22/21 10/11/24 History naloxegol 25 mg tablet 25 mg PO DAILY Constipation 11/22/21 10/11/24 History omega-3 fatty acids-fish oil 684 1 each PO DAILY Supplement 11/22/21 10/11/24 History mg-1,200 mg capsule,delayed release sumatriptan succinate 100 mg tablet 100 mg PO NEEDED PRN Migraine 02/25/22 10/11/24 History Headache naloxone 4 mg/actuation nasal 4 mg intranasal Q3M PRN opioid 10/05/23 10/11/24 Rx spray (Narcan) overdose #2 ea baclofen 10 mg tablet 10 mg PO TID #90 tabs 07/15/24 10/11/24 Rx oxycodone 10 mg tablet 10 mg PO Q4H Pain #180 tabs 11/22/24 Rx diazepam 5 mg tablet 5 mg PO DAILY #30 tabs 12/25/24 Rx diazepam 5 mg tablet 5 mg PO DAILY Anxiety #30 tabs 01/16/25 Rx oxycodone 10 mg tablet 10 mg PO Q4H PRN pain #180 tabs 01/16/25 Rx New Prescriptions to Start Prescriptions: diazepam Bux,Reji oxycodone Bux,Reji Allergies Allergy/AdvReac Type Severity Reaction Status Date / Time cortisone Allergy Intermediate Diarrhea Verified 06/07/24 09:31 codeine (CODEINE) Allergy Unknown STOMACH Verified 04/16/24 14:10 CRAMPING methocarbamol AdvReac Intermediate Rash Verified 06/07/24 09:31 [email or web address] (From Myrbetriq) AdvReac Intermediate Rash Verified 06/07/24 09:31 Exam Constitutional Constitutional: no acute distress *Routine HEENT Exam Head: Present normocephalic and atraumatic Eye: Present PERRL ENT: Present mucous membranes moist *Routine Neck Exam Neck: Present supple *Routine Respiratory Exam Respiratory: Present CTA bilaterally *Routine Cardiovascular Exam Cardiovascular: Present RRR *Routine Abdominal Exam Abdominal: Present soft *Routine Rectal Exam Rectal:: deferred *Routine Genitalia Exam Genitalia:: normal male Routine Back/Spine/Pelvis Exam Back/Spine: Present pain with flexion *Routine Skin Exam Skin: Present intact, dry and warm *Routine Neurological Exam Neurological: Present alert and oriented X3 Routine Psychiatric Exam Psychiatric: Present normal affect and normal thought process Assessment and Plan *Assessment and plan (1) Peripheral neuropathy: Status: Acute Qualifiers: Peripheral neuropathy type: polyneuropathy, other Qualified Code(s): G62.89 - Other specified polyneuropathies Category: Medical Code(s): G62.9 - Polyneuropathy, unspecified (2) Chronic back pain: Status: Acute Qualifiers: Back pain laterality: unspecified Back pain location: back pain in unspecified location Qualified Code(s): M54.9 - Dorsalgia, unspecified; G89.29 - Other chronic pain Category: Medical Code(s): M54.9 - Dorsalgia, unspecified; G89.29 - Other chronic pain (3) Degenerative disc disease: Status: Acute Category: Medical Plan Patient has been instructed to contact the clinic with any concerns before the next appointment. Dr. Santana has reviewed this note and agrees with this plan of care. This note was dictated using voice recognition software and make contain errors or omissions. All injections are used with Lidocaine, Bupivacaine and dexamethasone. Occasionally urine drug screen is needed to verify patient's compliance with our office pain contract. This is ordered based off specific treatments related to chronic pain with the potential to abuse certain medications.
--- NOTE | 2025-01-16 13:25 | P.PCN_ITS ---
Procedure Date: 01/16/25 Time: 13:32 Anesthesiologist:: Mikayla Lee APRN Complications:: None Pre-procedure Diagnosis:: Degenerative disc disease of cervical and lumbar spine, chronic pain syndrome Post-procedure Diagnosis:: Same Indications for Procedure:: Patient is a pleasant 74-year-old male who presents today for intrathecal refill and reprogram as well as medication refill. Today he rates his pain at a 8 out of 10. Patient does state that he ended that trying to repair a flagpole last week and fell backwards off a ladder. He does feel like he is just locked sore overall in his back and feels like his pump could use adjustment. Patient does not think he has done anything significant like a fracture currently. Patient is currently managed with bupivacaine 25 mg/mL with a daily dose of 6.415 mg/day at flex dosing. He does still feel like this has been the best option compared to the continuous-flow.Patient is currently managed with oxycodone 10 mg 6 times a day and diazepam 5 mg daily. He denies any side effects. His Sharif has been reviewed and is appropriate. Physical Exam: General: Alert and oriented x3, no acute distress, pleasant and cooperative Lungs: Respirations even and unlabored, symmetrical chest expansion Eyes: PERRL Musculoskeletal: Flexion and extension of lumbar [spine] somewhat guarded secondary to pain, [antalgic gait noted] Neurological: Speech clear, no gross sensory deficit Procedure Details:: Informed consent was obtained and the risk and benefits of the procedure were explained to the patient. The patient had noninvasive monitoring placed including noninvasive blood pressure cuff and pulse oximeter. Patient's pump was interrogated. The area over the pump was cleansed with chlorhexidine as a cleansing solution. In sterile fashion the pump was accessed with a 22-gauge needle. Approximately 5 mls of the pump solution was removed and discarded appropriately. The pump was then refilled with 20 mL's of bupivacaine 25 mg/mL. The needle was withdrawn and a bandage was placed over the puncture site. The infusion rate was reprogrammed and increased to bupivacaine 6.726 mg/day. The patient tolerated well with no complication. Plan and Disposition:: Patient tolerated the procedure well with no complications and was discharged neurologically intact. I did discuss with patient today about ordering x-rays to rule out any new fractures from his recent fall however patient would like to wait. I did budget counselor him if it does not improve within the next couple of weeks to please reach out to our office and I will happily send in x-ray orders. Patient agrees with this plan of care. I will also refill the patient's diazepam and oxycodone provide 1 month supply of these medications. Patient will return to clinic on or before their next intrathecal refill date. We will see the patient back in the clinic at the next intrathecal refill. Patient has been instructed to contact the clinic with any concerns before the next appointment. Dr. Santana has reviewed this note and agrees with this plan of care. This note was dictated using voice recognition software and make contain errors or omissions. -- It Is medically necessary for this patient to continue to have their intrathecal pump refilled at regular intervals. This patient had an intrathecal pain pump implanted after meeting criteria of chronic intractable pain for greater than 3 months and failing conservative treatments. Patient has committed and been compliant to the treatment plan and all planned follow up care. Since implantation of the intrathecal pain pump, the patient has had decreased pain and been more functional. Oral medications have been reduced including intake of oral opioids. Patient continues to do well with intrathecal therapy with decrease in pain symptoms and increase in functional status. Stopping intrathecal medications can lead to life threatening withdrawal, seizures, cardiac arrest, severe pain, and possible . Pumps that are not refilled at regular intervals can be damages and cause and need for replacement. We continually titrate dose and concentration to optimize pain relief and function. We are limited in concentration for certain drugs to safely deliver medications through the pump and stay within the recommendations from the Polyanalgesic Consensus Committee Guidelines. Depending on dose and concentration these pumps may need to be refilled sooner than 3 months as we titrate. A UDS is needed to verify patient's compliance with our office pain contract. This is ordered based off specific treatments related to chronic pain with the potential to abuse certain medications.
[2025-01-16 13:34] VITALS: BP 138/69; PULSE 76; RESP 18; O2SAT 97
[2025-01-16 14:08] VITALS: BP 132/73; PULSE 80; RESP 16; O2SAT 94
== END 2025-01-16 14:20 | disposition home or self-care (01) ==
PROVIDERS: Visit Provider Nurse Practitioner Family
DX: G89.4 Chronic pain syndrome (principal); M50.30 Other cervical disc degeneration, unspecified cervical region; M51.369 Other intervertebral disc degeneration, lumbar region without mention of lumbar back pain or lower extremity pain
CPT/HCPCS: 62370

== ENCOUNTER 2025-03-13 10:42 | Day surgery (SDC) | payer MEDICARE, OTHER, SELFPAY ==
--- NOTE | 2025-03-13 10:50 | EXP.PM.HP ---
History of Present Illness *Admission Date: 03/13/25 *Reason for visit:: Intrathecal refill; DDD *History of present illness: Same [facility] Disclaimer: The information contained in this section may have been updated after the patient was seen, as this information can be updated by other users. Medical History (Updated 01/16/25 @ 13:24 by Mikayla Lee APRN) Foot pain, bilateral Staph infection Anxiety Family history of prostate problems Degenerative disc disease Back pain Hypertension Anemia Surgical History History of tonsillectomy History of gastric surgery History of bilateral knee replacement Previous back surgery History of right shoulder replacement Family History Other Family history of cancer Family history of diabetes mellitus Family history of heart disease Social History Smoking Status: Current every day smoker tobacco type: cigarettes packs per day: 1 alcohol intake: never current occupational status: other Travel in the last 8 weeks?: None household members: spouse housing: house current occupational exposures/hazards: No caffeine: Yes Have you lived/traveled outside [place] in past 30 days?: No Contact w/someone who lives/traveled outside [place] past 30 days?: No Exposure to someone with infectious disease in past 14 days?: No Do you have a fever (greater than 100.4 F or 38 C)?: No Have you tested positive for COVID-19?: No Exposed to someone with COVID-19 in past 14 days?: No Do you have a sore throat?: No Do you have a cough?: No Do you have any weakness?: No Do you have any diarrhea?: No Are you experiencing any unusual bleeding?: No Do you have any muscle aches/pain?: No Do you have any abdominal pain?: No Are you experiencing loss of taste or smell?: No Other Medical History Have you received the Flu Vaccine for this season: No Have you received the Pneumonia Vaccine: No Review of Systems Review of Systems Review of systems:: pertinent systems reviewed and negative unless documented below Review of systems (narrative): Review of Systems: General: No recent weight changes, no fever, no sleep disturbances Respiratory: No cough, no shortness of air, no recurring pulmonary infections Cardiovascular/peripheral vascular: No chest pain, no palpitations, no edema, no shortness of breath Gastrointestinal: No new onset incontinence, normal bowel movements reported Genitourinary: No new onset incontinence Musculoskeletal: Chronic back pain Psychiatric: [Normal mood/affect] Neurological: [Denies weakness in extremities], [denies balance issues] Meds Home Medications and Allergies Home Medications ?Medication ?Instructions ?Recorded ?Confirmed ?Type amlodipine 10 mg tablet 10 mg PO DAILY blood pressure 12/30/20 03/13/25 History duloxetine 60 mg capsule,delayed 60 mg PO DAILY mood 12/30/20 03/13/25 History release esomeprazole magnesium 40 mg 40 mg PO DAILY GERD 12/30/20 03/13/25 History capsule,delayed release lisinopril 40 mg tablet 40 mg PO DAILY blood pressure 12/30/20 03/13/25 History pregabalin 300 mg capsule 300 mg PO BID nerve pain 12/30/20 03/13/25 History tamsulosin 0.4 mg capsule 0.4 mg PO HS BPH 12/30/20 03/13/25 History topiramate 100 mg tablet 100 mg PO TID PRN Migraine Headache 12/30/20 03/13/25 History bupivacaine (PF) 0.5 % (5 mg/mL) 3.6 mg intrathecal Q2HP PRN 02/25/21 03/13/25 History injection solution chronic pain naloxone 4 mg/actuation nasal spray 4 mg intranasal ONCE PRN 06/21/21 03/13/25 Rx oversedation 30 days #2 mL trazodone 50 mg tablet 50 - 100 mg PO HS Insomnia 08/30/21 03/13/25 History ascorbic acid (vitamin C) 100 mg 100 mg PO DAILY Supplement 11/22/21 03/13/25 History tablet calcium 250 mg (as 1 each PO DAILY Supplement 11/22/21 03/13/25 History carbonate)-vitamin D3 3.125 mcg (125 unit) tablet cetirizine 10 mg tablet 10 mg PO DAILY allergies 11/22/21 03/13/25 History dicyclomine 20 mg tablet 20 mg PO QID . 11/22/21 03/13/25 History ferrous sulfate 325 mg (65 mg 325 mg PO DAILY Supplement 11/22/21 03/13/25 History iron) tablet magnesium glycinate 100 mg (as 100 mg PO DAILY Supplement 11/22/21 03/13/25 History glycinate) tablet multivitamin 1 each PO DAILY Supplement 11/22/21 03/13/25 History naloxegol 25 mg tablet 25 mg PO DAILY Constipation 11/22/21 03/13/25 History omega-3 fatty acids-fish oil 684 1 each PO DAILY Supplement 11/22/21 03/13/25 History mg-1,200 mg capsule,delayed release sumatriptan succinate 100 mg tablet 100 mg PO NEEDED PRN Migraine 02/25/22 03/13/25 History Headache naloxone 4 mg/actuation nasal 4 mg intranasal Q3M PRN opioid 10/05/23 03/13/25 Rx spray (Narcan) overdose #2 ea baclofen 10 mg tablet 10 mg PO TID #90 tabs 07/15/24 03/13/25 Rx diazepam 5 mg tablet 5 mg PO DAILY Anxiety #30 tabs 01/16/25 03/13/25 Rx oxycodone 10 mg tablet 10 mg PO Q4H PRN pain #180 tabs 01/16/25 03/13/25 Rx diazepam 5 mg tablet 5 mg PO DAILY #30 tabs 03/05/25 03/13/25 Rx oxycodone 10 mg tablet 10 mg PO Q4H Pain #180 tabs 03/05/25 03/13/25 Rx New Prescriptions to Start Prescriptions: Allergies Allergy/AdvReac Type Severity Reaction Status Date / Time cortisone Allergy Intermediate Diarrhea Verified 06/07/24 09:31 codeine (CODEINE) Allergy Unknown STOMACH Verified 04/16/24 14:10 CRAMPING methocarbamol AdvReac Intermediate Rash Verified 06/07/24 09:31 [email or web address] (From Myrbetriq) AdvReac Intermediate Rash Verified 06/07/24 09:31 Exam Constitutional Constitutional: no acute distress *Routine HEENT Exam Head: Present normocephalic and atraumatic Eye: Present PERRL ENT: Present mucous membranes moist *Routine Neck Exam Neck: Present supple *Routine Respiratory Exam Respiratory: Present CTA bilaterally *Routine Cardiovascular Exam Cardiovascular: Present RRR *Routine Abdominal Exam Abdominal: Present soft *Routine Rectal Exam Rectal:: deferred *Routine Genitalia Exam Genitalia:: deferred Routine Back/Spine/Pelvis Exam Back/Spine: Present pain with flexion *Routine Skin Exam Skin: Present intact, dry and warm *Routine Neurological Exam Neurological: Present alert and oriented X3 Routine Psychiatric Exam Psychiatric: Present normal affect and normal thought process Assessment and Plan *Assessment and plan (1) Degenerative disc disease: Status: Acute Category: Medical Plan Patient has been instructed to contact the clinic with any concerns before the next appointment. Dr. Santana has reviewed this note and agrees with this plan of care. This note was dictated using voice recognition software and make contain errors or omissions. All injections are used with Lidocaine, Bupivacaine and dexamethasone. Occasionally urine drug screen is needed to verify patient's compliance with our office pain contract. This is ordered based off specific treatments related to chronic pain with the potential to abuse certain medications.
--- NOTE | 2025-03-13 10:51 | EXP.PAIN.PRO ---
Procedure Date: 03/13/25 Time: 11:14 Anesthesiologist:: Mikayla Lee APRN Complications:: None Pre-procedure Diagnosis:: Degenerative disc disease, chronic pain syndrome Post-procedure Diagnosis:: Same Indications for Procedure:: Patient is a pleasant 74-year-old male who presents today for intrathecal refill and reprogram. Patient rates his pain today a 9 out of 10. Patient does state that he has had a couple falls since our last visit. He states it is unrelated to the pump and that he tripped over an object or one of the falls however the other 1 he still not really sure exactly how he did it. He does not feel like he did anything significant just is more sore and is asking for an adjustment on his pump. Patient is currently managed with bupivacaine 25 mg/mL with a daily dose of 6.726 mg/day. He denies any side effects. He is also managed with oxycodone 10 mg 6 times a day and diazepam 5 mg daily from our office his Sharif has been reviewed and is appropriate. Physical Exam: General: Alert and oriented x3, no acute distress, pleasant and cooperative Lungs: Respirations even and unlabored, symmetrical chest expansion Eyes: PERRL Musculoskeletal: Flexion and extension of lumbar [spine] somewhat guarded secondary to pain, [antalgic gait noted] Neurological: Speech clear, no gross sensory deficit Procedure Details:: Informed consent was obtained and the risk and benefits of the procedure were explained to the patient. The patient had noninvasive monitoring placed including noninvasive blood pressure cuff and pulse oximeter. Patient's pump was interrogated. The area over the pump was cleansed with chlorhexidine as a cleansing solution. In sterile fashion the pump was accessed with a 22-gauge needle. Approximately 4.1 mls of the pump solution was removed and discarded appropriately. The pump was then refilled with 20 mL's of bupivacaine 25 mg/mL. The needle was withdrawn and a bandage was placed over the puncture site. The infusion rate was reprogrammed and increased 10% to 7.399 mg/day. The patient tolerated well with no complication. Plan and Disposition:: Patient tolerated the procedure well with no complications and was discharged neurologically intact. I did scholarship counselor the patient to keep us posted if he ends up feeling like he may have done something more significant and needs x-ray imaging. Patient was also reviewed if he has any side effects with the pump increase to please call us and we will get him in to adjust the pump back down if needed. He acknowledges understanding and agrees with this plan of care. We will make sure that he has refills on his diazepam and oxycodone. Patient will return to clinic on or before their next intrathecal refill date. We will see the patient back in the clinic at the next intrathecal refill. Patient has been instructed to contact the clinic with any concerns before the next appointment. Dr. Santana has reviewed this note and agrees with this plan of care. This note was dictated using voice recognition software and make contain errors or omissions. -- It Is medically necessary for this patient to continue to have their intrathecal pump refilled at regular intervals. This patient had an intrathecal pain pump implanted after meeting criteria of chronic intractable pain for greater than 3 months and failing conservative treatments. Patient has committed and been compliant to the treatment plan and all planned follow up care. Since implantation of the intrathecal pain pump, the patient has had decreased pain and been more functional. Oral medications have been reduced including intake of oral opioids. Patient continues to do well with intrathecal therapy with decrease in pain symptoms and increase in functional status. Stopping intrathecal medications can lead to life threatening withdrawal, seizures, cardiac arrest, severe pain, and possible . Pumps that are not refilled at regular intervals can be damages and cause and need for replacement. We continually titrate dose and concentration to optimize pain relief and function. We are limited in concentration for certain drugs to safely deliver medications through the pump and stay within the recommendations from the Polyanalgesic Consensus Committee Guidelines. Depending on dose and concentration these pumps may need to be refilled sooner than 3 months as we titrate. A UDS is needed to verify patient's compliance with our office pain contract. This is ordered based off specific treatments related to chronic pain with the potential to abuse certain medications.
[2025-03-13 10:56] VITALS: BP 159/91; PULSE 63; RESP 18; O2SAT 99; BMI 23.1
[2025-03-13 11:33] VITALS: BP 159/91; PULSE 63; RESP 18; O2SAT 97
[2025-03-13 11:46] VITALS: BP 158/76; PULSE 65; RESP 18; O2SAT 98
== END 2025-03-13 11:46 | disposition home or self-care (01) ==
PROVIDERS: PCP Student in an Organized Health Care Education/Training Program; Visit Provider Nurse Practitioner Family
DX: M51.369 Other intervertebral disc degeneration, lumbar region without mention of lumbar back pain or lower extremity pain (principal); D64.9 Anemia, unspecified; F41.9 Anxiety disorder, unspecified; I10 Essential (primary) hypertension; F17.210 Nicotine dependence, cigarettes, uncomplicated; Z88.5 Allergy status to narcotic agent; Z88.8 Allergy status to other drugs, medicaments and biological substances; Z79.891 Long term (current) use of opiate analgesic; Z79.899 Other long term (current) drug therapy
CPT/HCPCS: 62370

== ENCOUNTER 2025-05-08 12:04 | Emergency (ER) | payer MEDICARE, OTHER, SELFPAY ==
[2025-05-08 12:14] VITALS: BP 136/61; PULSE 85; RESP 17; TEMP 36.6; O2SAT 98; BMI 23.1
--- NOTE | 2025-05-08 12:19 | CA_ITS ---
FINAL REPORT CLINICAL HISTORY: BRUISING,PAIN AND EDEMA RLE SINCE FALL LAST WEEK COMPARISON: None FINDINGS: DUPLEX VENOUS SONOGRAPHY OF THE RIGHT LOWER EXTREMITY Multiple transverse and longitudinal scans were performed of the femoropopliteal deep venous system, with augmentation and compression maneuvers. HISTORY: Pain, swelling FINDINGS: Normal phasic flow was noted in the visualized deep venous system. No intraluminal increased echogenicity is noted to suggest thrombus. There is normal compression and augmentation of the venous structures. No abnormal venous collaterals are seen. IMPRESSION: No evidence of deep venous thrombosis of the right lower extremity. Reviewed, Interpreted and Dictated by Martina Diaz MD Transcribed by Avis Patel Authenticated and [facility]
--- NOTE | 2025-05-08 12:27 | ED_ITS ---
Discharge Plan Disposition Patient Disposition: Home, Self-Care Prescriptions Prescriptions: New cephalexin 500 mg capsule 500 mg PO BID 7 Days Qty: 14 0RF doxycycline hyclate 100 mg tablet 100 mg PO BID 7 Days Qty: 14 0RF No Action lisinopril 40 MG tablet 40 mg PO DAILY pregabalin 300 MG capsule 300 mg PO BID tamsulosin 0.4 MG capsule 0.4 mg PO HS amlodipine 10 MG tablet 10 mg PO DAILY esomeprazole magnesium 40 MG capsule,delayed release(DR/EC) 40 mg PO DAILY topiramate 100 MG tablet 100 mg PO TID PRN (Reason: Migraine Headache) duloxetine 60 MG capsule,delayed release(DR/EC) 60 mg PO DAILY naloxone 4 MG spray,non-aerosol 4 mg intranasal ONCE PRN (Reason: oversedation) 30 Days Qty: 2 5RF diazepam 5 mg tablet 5 mg PO DAILY Qty: 30 0RF oxycodone 10 mg tablet 10 mg PO Q4H Qty: 180 0RF multivitamin 1 EACH tablet 1 each PO DAILY cetirizine 10 MG tablet 10 mg PO DAILY dicyclomine 20 MG tablet 20 mg PO QID ferrous sulfate 325 MG tablet 325 mg PO DAILY ascorbic acid (vitamin C) 100 MG tablet 100 mg PO DAILY calcium carbonate-vitamin D3 1 EACH tablet 1 each PO DAILY omega-3 fatty acids-fish oil 1 EACH capsule,delayed release(DR/EC) 1 each PO DAILY magnesium glycinate 100 MG tablet 100 mg PO DAILY naloxegol 25 MG tablet 25 mg PO DAILY sumatriptan succinate 100 MG tablet 100 mg PO NEEDED PRN (Reason: Migraine Headache) naloxone [Narcan] 4 mg/actuation spray,non-aerosol 4 mg intranasal Q3M PRN (Reason: opioid overdose) Qty: 2 0RF Rx Instructions: spray 1 dose into ONE nostril; alternate nostrils w each dose until help arrives baclofen 10 mg tablet 10 mg PO TID Qty: 90 0RF bupivacaine (PF) 5 MG/ML solution 3.6 mg intrathecal Q2HP PRN (Reason: chronic pain) Rx Instructions: medication delivered via intrathecal pain pump. total volume of pump is 20ml trazodone 50 MG tablet 50 - 100 mg PO HS diazepam 5 MG tablet 5 mg PO DAILY Qty: 30 0RF oxycodone 10 mg tablet 10 mg PO Q4H PRN (Reason: pain) Qty: 180 0RF Referrals Follow up/Referrals: Yvette Guadarrama MD [Primary Care Provider, Medical] - See instructions Activity Restrictions/Add. Instructions Additional Instructions/Restrictions: Increase fluids and rest. Elevate right leg. Continue to keep the right leg wounds clean with soap and water. Take antibiotics as directed. Please see your PCP in 3 to 4 days for follow-up. Clinical Impressions Clinical Impression: Cellulitis Instructions Patient Instructions: Cellulitis Print Language Print Language: Kiswahili Discharge ED Provider: Su Patel General Adult HPI <Landy Proctor (ED), COMMERCIAL CONSTRUCTION ESTIMATOR - Last Filed: 05/08/25 13:38> General Chief complaint: Extremity Injury, Lower Stated complaint: right leg swollen, warm, red Time Seen by Provider: 05/08/25 12:09 Mode of Arrival: Ambulatory Source of Information: Patient Description of Symptoms (Recalled from ER Triage Doc. by RN): Patient states he had a fall from a ladder a week ago, was checked out at another hospital immediately after the fall. Saw PCP on Monday05/05/25 for follow up, states she just checked him over . States he is here at the ER today because he is having pain and swelling in right leg and he states redness. History of Present Illness HPI narrative: 74-year-old male presents to the ED today with complaint of wounds on his right yeager. He has increased swelling in this right leg from comparison to his left leg. He did fall out of a truck on . He was evaluated at that time. He patient did show the wounds to his PCP on Monday however they were not as swollen as they are now. is concerned about him. She has been washing them with wound wash and covering them. They do have some brown drainage coming from them. No other symptoms. Related Data Home Medications ?Medication ?Instructions ?Recorded ?Confirmed amlodipine 10 mg tablet 10 mg PO DAILY blood pressur e 12/30/20 03/13/25 duloxetine 60 mg capsule,delayed 60 mg PO DAILY mood 0 12/30/20 03/13/25 release esomeprazole magnesium 40 mg 40 mg PO DAILY GERD 12/3003/13/25 capsule,delayed release lisinopril 40 mg tablet 40 mg PO DAILY blood pressur e 12/30/20 03/13/25 pregabalin 300 mg capsule 300 mg PO BID nerve pain 01/1503/13/25 tamsulosin 0.4 mg capsule 0.4 mg PO HS BPH 12/30/20 topiramate 100 mg tablet 100 mg PO TID PRN Migraine H eadache 12/30/20 03/13/25 bupivacaine (PF) 0.5 % (5 mg/mL) 3.6 mg intrathecal Q2 HP PRN 02/25/21 03/13/25 injection solution chronic pain trazodone 50 mg tablet 50 - 100 mg PO HS Insomnia 0 08/30/21 03/13/25 ascorbic acid (vitamin C) 100 mg 100 mg PO DAILY Suppl ement 11/22/21 03/13/25 tablet calcium 250 mg (as 1 each PO DAILY Supplement 0 11/22/21 03/13/25 carbonate)-vitamin D3 3.125 mcg (125 unit) tablet cetirizine 10 mg tablet 10 mg PO DAILY allergies 03/13/25 dicyclomine 20 mg tablet 20 mg PO QID . 11/22/2102/25 ferrous sulfate 325 mg (65 mg 325 mg PO DAILY Suppleme nt 11/22/21 03/13/25 iron) tablet magnesium glycinate 100 mg (as 100 mg PO DAILY Supplem ent 11/22/21 03/13/25 glycinate) tablet multivitamin 1 each PO DAILY Supplement 0 11/22/21 03/13/25 naloxegol 25 mg tablet 25 mg PO DAILY Constipation 11/22/21 03/13/25 omega-3 fatty acids-fish oil 684 1 each PO DAILY Suppl ement 11/22/21 03/13/25 mg-1,200 mg capsule,delayed release sumatriptan succinate 100 mg tablet 100 mg PO NEEDE D PRN Migraine 02/25/22 03/13/25 Headache Previous Rx's ?Medication ?Instructions ?Recorded naloxone 4 mg/actuation nasal spray 4 mg intranasal ON CE PRN 06/21/21 oversedation 30 days #2 mL naloxone 4 mg/actuation nasal 4 mg intranasal Q3M PRN opioid 10/05/23 spray (Narcan) overdose #2 ea baclofen 10 mg tablet 10 mg PO TID #90 tabs diazepam 5 mg tablet 5 mg PO DAILY Anxiety #30 ta bs 01/16/25 oxycodone 10 mg tablet 10 mg PO Q4H PRN pain #180 t abs 03/13/25 diazepam 5 mg tablet 5 mg PO DAILY #30 tabs 05/05 oxycodone 10 mg tablet 10 mg PO Q4H Pain #180 tabs 05/05/25 cephalexin 500 mg capsule 500 mg PO BID 7 days #14 cap s 05/08/25 doxycycline hyclate 100 mg tablet 100 mg PO BID 7 days #14 tabs 05/08/25 Allergies Allergy/AdvReac Type Severity Reaction Status Date / Time cortisone Allergy Intermediate Diarrhea Verified 06/07/24 09:31 codeine (CODEINE) Allergy Unknown STOMACH Verified 04/16/24 14:10 CRAMPING methocarbamol AdvReac Intermediate Rash Verified 06/07/24 09:31 [email or web address] (From Myrbetriq) AdvReac Intermediate Rash Verified 06/07/24 09:31 PFS <Landy Proctor (ED), COMMERCIAL CONSTRUCTION ESTIMATOR - Last Filed: 05/08/25 13:38> PFS Disclaimer: The information contained in this section may have been updated after the patient was seen, as this information can be updated by other users. Medical History (Updated 05/08/25 @ 13:43 by Landy Proctor (ED), COMMERCIAL CONSTRUCTION ESTIMATOR) Foot pain, bilateral Staph infection Anxiety Family history of prostate problems Degenerative disc disease Back pain Hypertension Anemia Surgical History History of tonsillectomy History of gastric surgery History of bilateral knee replacement Previous back surgery History of right shoulder replacement Family History Other Family history of cancer Family history of diabetes mellitus Family history of heart disease Social History Smoking Status: Current every day smoker tobacco type: cigarettes packs per day: 1 alcohol intake: never current occupational status: other Travel in the last 8 weeks?: None household members: spouse housing: house current occupational exposures/hazards: No caffeine: Yes Have you lived/traveled outside [place] in past 30 days?: No Contact w/someone who lives/traveled outside [place] past 30 days?: No Exposure to someone with infectious disease in past 14 days?: No Do you have a fever (greater than 100.4 F or 38 C)?: No Have you tested positive for COVID-19?: No Exposed to someone with COVID-19 in past 14 days?: No Do you have a sore throat?: No Do you have a cough?: No Do you have any weakness?: No Do you have any diarrhea?: No Are you experiencing any unusual bleeding?: No Do you have any muscle aches/pain?: No Do you have any abdominal pain?: No Are you experiencing loss of taste or smell?: No Other Medical History Have you received the Flu Vaccine for this season: No Have you received the Pneumonia Vaccine: No <Landy Proctor (ED), COMMERCIAL CONSTRUCTION ESTIMATOR - Last Filed: 05/08/25 13:38> ROS Obtained: Yes Systems reviewed as appropriate & no additional complaints except as documented Constitutional Constitutional: Reports as per HPI Physical Exam <Landy Proctor (ED), COMMERCIAL CONSTRUCTION ESTIMATOR - Last Filed: 05/08/25 13:38> General General appearance: alert Head Head exam: normocephalic Eye Eye exam: Present PERRL and EOMI ENT ENT exam: Present normal oropharynx and mucous membranes moist Neck Neck exam: Present full ROM and trachea midline Respiratory Respiratory exam: Present normal lung sounds bilaterally Cardiovascular Cardiovascular exam: Present regular rate, normal rhythm, normal heart sounds, +S1 and +S2 Extremities Exam Extremities exam: Present full ROM, tenderness (open wounds on yeager) and edema Neurological Exam Neurological exam: Present alert and oriented X3 Skin Skin exam: Present warm, dry and other (Wound on yeager x 2 with brown drainage) Medical Decision Making <Landy Proctor (ED), COMMERCIAL CONSTRUCTION ESTIMATOR - Last Filed: 05/08/25 13:38> Medical Records Screening: Per USPSTF and CDC recommendations, given the prevalence of disease in our region, it is our hospital?s policy to screen for HIV and viral Hepatitis for all patients aged 18 and over and those with ongoing risk factors. Sharif Inquiry Pt receiving controlled substance: No Sharif was queried for this patient: No Vital Signs: 05/08/25 12:14 05/08/25 13:44 Temperature 98 F 98.0 F Temperature Source Oral Pulse Rate 63 Pulse Rate [Left Brachial] 85 Respiratory Rate 17 16 Blood Pressure 136/67 Blood Pressure [Left Arm] 136/61 Blood Pressure Mean [Left Arm] 86 Blood Pressure Source [Left Arm] Automatic Cuff Blood Pressure Position [Left Arm] Sitting 02 Sat by Pulse Oximetry 98 Oxygen Delivery Method Room Air Lab Data Lab Results 05/08/25 12:34: WBC 5.9, RBC 4.27 L, Hgb 13.3 L, Hct 37.8 L, MCV 88.5, MCH 31.1, MCHC 35.2, RDW 13.6, Plt Count 145, MPV 11.9 H, Neut % (Auto) 59.1, Lymph % (Auto) 29.2, [place] % (Auto) 6.3, Eos % (Auto) 4.1, Baso % (Auto) 1.0, Neut # (Auto) 3.5, Lymph # (Auto) 1.7, [place] # (Auto) 0.4, Eos # (Auto) 0.2, Baso # (Auto) 0.1, Sodium 136, Potassium 4.1, Chloride 106, Carbon Dioxide 25, Anion Gap 9.1, BUN 9, Creatinine 0.90, Estimated Creat Clear 68, Estimated GFR 83, Est GFR ( Amer) 100, Glucose 178 H, Calcium 8.8, Magnesium 1.9, Total Bilirubin 0.7, AST 26, ALT 15, Alkaline Phosphatase 110, Total Protein 6.8, Albumin 4.1, Globulin 2.7, Albumin/Globulin Ratio 1.5, HCV Ab WEST w/Rflx PCR Qn Negative, HIV Ag/Ab Combo Qual Negative 05/08/25 12:34 05/08/25 12:34 Orders (Tests/Meds): ORDERS Category Date Time Status CBC [Complete Blood Count Auto Diff] Stat Lab 05/08/25 12:34 Completed Comprehensive Metabolic Panel Stat Lab 05/08/25 12:34 Completed HIV Combo Stat Lab 05/08/25 12:34 Completed Hepatitis C Ab Qual. W/ RFX Stat Lab 05/08/25 12:34 Completed Magnesium Stat Lab 05/08/25 12:34 Completed CA venous doppler LE RT Stat Y 05/08/25 12:19 Completed Medical Decision Narrative: patient is a 74-year-old male presenting to the emergency department for evaluation of right yeager with wounds and swelling. Patient is hemodynamically stable and nontoxic-appearing upon arrival, afebrile. Differential diagnosis includes cellulitis versus DVT. Workup will be conducted with hematologic labs, specific imaging including venous Doppler. Patient had a venous Doppler of his right leg that ruled out DVT. Patient's labs were nonactionable. This ruled out infection. Patient is able to walk on this leg. He does have redness around the wounds. I will treat for cellulitis with Bactrim and Keflex. I will have patient follow-up with his PCP next week, earlier if any worsening signs or symptoms. Continue to clean area. Patient is safe for discharge home discussed with Dr. Patel. <Su Patel MD - Last Filed: 05/08/25 15:24> Vital Signs: 05/08/25 12:14 05/08/25 13:44 Temperature 98 F 98.0 F Temperature Source Oral Pulse Rate 63 Pulse Rate [Left Brachial] 85 Respiratory Rate 17 16 Blood Pressure 136/67 Blood Pressure [Left Arm] 136/61 Blood Pressure Mean [Left Arm] 86 Blood Pressure Source [Left Arm] Automatic Cuff Blood Pressure Position [Left Arm] Sitting 02 Sat by Pulse Oximetry 98 Oxygen Delivery Method Room Air Lab Data Lab Results 05/08/25 12:34: WBC 5.9, RBC 4.27 L, Hgb 13.3 L, Hct 37.8 L, MCV 88.5, MCH 31.1, MCHC 35.2, RDW 13.6, Plt Count 145, MPV 11.9 H, Neut % (Auto) 59.1, Lymph % (Auto) 29.2, [place] % (Auto) 6.3, Eos % (Auto) 4.1, Baso % (Auto) 1.0, Neut # (Auto) 3.5, Lymph # (Auto) 1.7, [place] # (Auto) 0.4, Eos # (Auto) 0.2, Baso # (Auto) 0.1, Sodium 136, Potassium 4.1, Chloride 106, Carbon Dioxide 25, Anion Gap 9.1, BUN 9, Creatinine 0.90, Estimated Creat Clear 68, Estimated GFR 83, Est GFR ( Amer) 100, Glucose 178 H, Calcium 8.8, Magnesium 1.9, Total Bilirubin 0.7, AST 26, ALT 15, Alkaline Phosphatase 110, Total Protein 6.8, Albumin 4.1, Globulin 2.7, Albumin/Globulin Ratio 1.5, HCV Ab WEST w/Rflx PCR Qn Negative, HIV Ag/Ab Combo Qual Negative Orders (Tests/Meds): ORDERS Category Date Time Status CBC [Complete Blood Count Auto Diff] Stat Lab 05/08/25 12:34 Completed Comprehensive Metabolic Panel Stat Lab 05/08/25 12:34 Completed HIV Combo Stat Lab 05/08/25 12:34 Completed Hepatitis C Ab Qual. W/ RFX Stat Lab 05/08/25 12:34 Completed Magnesium Stat Lab 05/08/25 12:34 Completed CA venous doppler LE RT Stat Y 05/08/25 12:19 Completed Medical Decision Narrative: patient is a 74-year-old male presenting to the emergency department for evaluation of right yegaer with wounds and swelling. Patient is hemodynamically stable and nontoxic-appearing upon arrival, afebrile. Differential diagnosis includes cellulitis versus DVT. Workup will be conducted with hematologic labs, specific imaging including venous Doppler. Patient had a venous Doppler of his right leg that ruled out DVT. Patient's labs were nonactionable. This ruled out infection. Patient is able to walk on this leg. He does have redness around the wounds. I will treat for cellulitis with Bactrim and Keflex. I will have patient follow-up with his PCP next week, earlier if any worsening signs or symptoms. Continue to clean area. Patient is safe for discharge home discussed with Dr. Patel. I was consulted by the FEROZ, and we discussed the complexity of problems being addressed. I approved the treatment and management plan for this patient's care in the emergency department, thus performing a substantial portion of the medical decision making. Su Patel MD Critical Care <Su Patel MD - Last Filed: 05/08/25 15:24> Critical Care Time Critical Care Time: No
[2025-05-08 12:45] LABS: Hematocrit 37.8 % (42.0-52.0); Hemoglobin 13.3 g/dL (14.1-18.0); Immature Granulocytes % 0.3 %; Mean Corpuscular HGB Conc 35.2 g/dL (31.8-35.4); Mean Corpuscular Hemoglobin 31.1 pg (27.0-31.2); Mean Corpuscular Volume 88.5 fl (80-94); Nucleated Red Blood Cells % 0 %; Platelet Count 145 K/mm3 (142-424); Red Blood Count 4.27 M/mm3 (4.60-6.20); Red Cell Distribution Width-SD 44.0 fL; White Blood Count 5.9 K/mm3 (4.8-10.8)
[2025-05-08 12:52] LABS: Alanine Aminotransferase 15 U/L (12-78); Albumin Level 4.1 g/dl (3.5-5.0); Albumin/Globulin Ratio 1.5 (1.1-1.8); Alkaline Phosphatase 110 U/L (38-126); Anion Gap 9.1 mEq/L (5-15); Aspartate Amino Transferase 26 U/L (17-59); Bilirubin,Total 0.7 mg/dl (0.2-1.3); Blood Urea Nitrogen 9 mg/dl (9-20); Calcium 8.8 mg/dl (8.4-10.2); Carbon Dioxide 25 mmol/L (22.0-30.0); Chloride 106 mmol/L (98-107); Creatinine Clearance Estimated 68 mL/min (50-200); Creatinine,Serum 0.90 mg/dl (0.66-1.25); Estimated Glomerular Filt Rate 83 ml/min (>60); GFR (African American) 100 ML/MIN (>60); Globulin 2.7 g/dL (1.3-3.2); Glucose 178 mg/dl (74-100); Magnesium 1.9 mg/dl (1.6-2.3); Potassium 4.1 mmoL/L (3.5-5.1); Sodium 136 mmol/L (136-145); Total Protein,Serum 6.8 g/dl (6.3-8.2)
[2025-05-08 13:44] VITALS: BP 136/67; PULSE 63; RESP 16; TEMP 36.7; O2SAT 100
[2025-05-08 14:59] LABS: Hepatitis C Ab Qual. W/ RFX NEGATIVE (Negative)
== END 2025-05-08 13:51 | disposition home or self-care (01) ==
PROVIDERS: Nurse Practitioner; Emergency Provider Student in an Organized Health Care Education/Training Program; PCP Student in an Organized Health Care Education/Training Program
DX: L03.115 Cellulitis of right lower limb (principal); I10 Essential (primary) hypertension; F17.210 Nicotine dependence, cigarettes, uncomplicated
CPT/HCPCS: 80053; 83735; 85025; 86803; 87389; 93971; 99283; 99285